=== PATIENT | female | born 1995 | race Caucasian/White ===

== ENCOUNTER 2016-06-27 21:20 | Emergency (ER) | payer OTHER ==
--- NOTE | 2016-06-27 21:58 | ED.PDOC ---
History of Present Illness - General Chief Complaint: ENT Problem Stated Complaint: EAR ACHE FROM TOOTH PAIN Time Seen by Provider: 06/27/16 21:56 Source: patient Exam Limitations: no limitations - History of Present Illness Initial Comments: Rani Bustamante 21 y/o female stated that left lower jaw had been hurting for 3 days feels like her ears left but lower jaw hurts on chewing.Tried to make dental appointment but accepting only insurance. Timing/Duration: gradual, other - 3 days ago Severity: moderate EENT Location: dental Prearrival Treatment: no prearrival treatment Improving Factors: nothing Worsening Factors: eating Associated Symptoms: tooth pain Allergies/Adverse Reactions: Allergies Amoxicillin Allergy (Intermediate, Verified 06/27/16 21:33) Hives Ethanol [From Robitussin] Allergy (Verified 06/27/16 21:33) Guaifenesin [From Robitussin] Allergy (Verified 06/27/16 21:33) Home Medications: Ambulatory Orders Acetamin W/Cod #3 Tab [Tylenol w/CODEINE #3] 1 ea PO TID PRN #10 tab 06/27/16 Clindamycin HCl [Cleocin] 300 mg PO Q12HR #30 cap 06/27/16 Vit W/ Ferrous Fumara [] 1 tab PO DAILY 06/27/16 Review of Systems - Review of Systems Constitutional: States: no symptoms reported EENTM: States: see HPI Respiratory: States: no symptoms reported Cardiology: States: no symptoms reported Gastrointestinal/Abdominal: States: no symptoms reported Genitourinary: States: no symptoms reported Musculoskeletal: States: no symptoms reported Skin: States: no symptoms reported Neurological: States: no symptoms reported Endocrine: States: no symptoms reported Hematologic/Lymphatic: States: no symptoms reported Past Medical History (General) - Patient Medical History Hx Seizures: No Hx Stroke: No Hx Dementia: No Hx Asthma: Yes Hx of COPD: No Hx Cardiac Disorders: No Hx Congestive Heart Failure: No Hx Pacemaker: No Hx Hypertension: No Hx Thyroid Disease: No Hx Diabetes: No Hx Gastroesophageal Reflux: No Hx Renal Disease: No Hx Cancer: No Hx of HIV: No Hx Hepatitis C: No Hx MRSA: No Surgical History: appendectomy - Vaccination History Hx Tetanus, Diphtheria Vaccination: No Hx Influenza Vaccination: No Hx Pneumococcal Vaccination: No Immunizations Up to Date: No - Social History Hx Tobacco Use: Yes Hx Chewing Tobacco Use: No Hx Alcohol Use: No Hx Substance Use: No Hx Substance Use Treatment: No Hx Depression: No Hx Physical Abuse: No Hx Emotional Abuse: No Hx Suspected Abuse: No - Female History Hx Last Menstrual Period: 08/14/14 Patient : No Family Medical History - Family History Mother Family History: No Known Living Status: Still Living Hx Family Hypertension: Yes Physical Exam - Physical Exam General Appearance: Agitated, No apparent distress Eye Exam: bilateral normal Ear Exam: bilateral ear: auricle normal, canal normal, TM normal Nasal Exam: normal inspection Throat Exam: normal mouth inspection, pharynx normal, dental tenderness - lower molar left with tenderness gum line Neck: non-tender, full range of motion, supple Cardiovascular/Respiratory: regular rate, rhythm, no M/R/G, normal peripheral pulses, no JVD Abdominal Exam: non-tender, no organomegaly Neurologic: alert, oriented x 3 Skin Exam: normal color, warm/dry Departure - Departure Clinical Impression: Caries of left mastoid, Pain due to dental caries Time of Disposition: 22:16 Disposition: Discharge to Home or Self Care Condition: Good Departure Forms: ED Discharge - Pt. Copy, Patient Portal Self Enrollment Instructions: DI for Tooth Decay Referrals: Emigdio Gongora MD [Primary Care Provider] - 1-2 Weeks Prescriptions: Clindamycin HCl [Cleocin] 300 mg PO Q12HR #30 cap Acetamin W/Cod #3 Tab [Tylenol w/CODEINE #3] 1 ea PO TID PRN #10 tab PRN Reason: Pain Home Medications: Ambulatory Orders Acetamin W/Cod #3 Tab [Tylenol w/CODEINE #3] 1 ea PO TID PRN #10 tab 06/27/16 Clindamycin HCl [Cleocin] 300 mg PO Q12HR #30 cap 06/27/16 Vit W/ Ferrous Fumara [] 1 tab PO DAILY 06/27/16 Additional Instructions: Call up [facility] [address] [address] phone [phone] for appointment
[2016-06-27] MEDS ORDERED: HYDROcodone 7.5MG/APAP 325MG 1 EA TAB PO ONE (22:14)
[2016-06-27] MEDS ORDERED: CLINDAMYCIN HCL CAP 150 MG CAP PO ONE (22:14)
[2016-06-27 22:35] VITALS: BP 150/83; TEMP 97.9; O2SAT 100
== END 2016-06-27 22:34 | disposition home or self-care (01) ==
LOC: ER 21:20
DX: K02.9 Dental caries, unspecified (principal); Z88.3 Allergy status to other anti-infective agents; Z88.8 Allergy status to other drugs, medicaments and biological substances

== ENCOUNTER 2016-07-15 18:26 | Emergency (ER) | payer OTHER ==
[2016-07-15 19:13] VITALS: O2SAT 98
[2016-07-15] MEDS ORDERED: ACETAMINOPHEN W/COD #3 TAB 1 EA TAB PO ONE (19:22)
--- NOTE | 2016-07-15 19:26 | ED.PDOC ---
History of Present Illness - General Chief Complaint: Dental/Mouth Stated Complaint: dental discomfort Time Seen by Provider: 07/15/16 18:47 Source: patient, RN notes reviewed, Vital Signs reviewed, family - Mother - History of Present Illness Initial Comments: Patient is a 21 y/o female who is . She has had tooth pain for 2 weeks. She has been seen in the ED and saw Dr. Gongora yesterday and was put on Clindamycin, however she was not given any pain medication. She woke up last night with severe pain and has been unable to sleep since. She has an appointment with the dentist in 2 days. She denies any fever/chills. Timing/Duration: getting worse, other - 2 weeks Severity: severe Improving Factors: nothing Worsening Factors: eating Associated Symptoms: denies symptoms Allergies/Adverse Reactions: Allergies Amoxicillin Allergy (Intermediate, Verified 07/15/16 19:12) Hives Ethanol [From Robitussin] Allergy (Verified 07/15/16 19:12) Guaifenesin [From Robitussin] Allergy (Verified 07/15/16 19:12) Home Medications: Ambulatory Orders Vit W/ Ferrous Fumara [] 1 tab PO DAILY 06/27/16 Clindamycin HCl [Cleocin] 300 mg PO TID 07/15/16 Review of Systems - Review of Systems Constitutional: States: no symptoms reported EENTM: States: mouth pain Respiratory: States: no symptoms reported Cardiology: States: no symptoms reported Gastrointestinal/Abdominal: States: no symptoms reported Genitourinary: States: no symptoms reported Musculoskeletal: States: no symptoms reported Skin: States: no symptoms reported Neurological: States: no symptoms reported Endocrine: States: no symptoms reported Hematologic/Lymphatic: States: no symptoms reported All other Systems: Reviewed and Negative Past Medical History (General) - Patient Medical History Hx Seizures: No Hx Stroke: No Hx Dementia: No Hx Asthma: Yes Hx of COPD: No Hx Cardiac Disorders: No Hx Congestive Heart Failure: No Hx Pacemaker: No Hx Hypertension: No Hx Thyroid Disease: No Hx Diabetes: No Hx Gastroesophageal Reflux: No Hx Renal Disease: No Hx Cancer: No Hx of HIV: No Hx Hepatitis C: No Hx MRSA: No Surgical History: appendectomy - Vaccination History Hx Tetanus, Diphtheria Vaccination: No Hx Influenza Vaccination: No Hx Pneumococcal Vaccination: No - Social History Hx Tobacco Use: Yes Hx Chewing Tobacco Use: No Hx Alcohol Use: No Hx Substance Use: No Hx Substance Use Treatment: No Hx Depression: No Hx Physical Abuse: No Hx Emotional Abuse: No Hx Suspected Abuse: No - Female History Patient is a Female of Child Bearing Age (10 -59 yrs old): Yes Hx Last Menstrual Period: 08/14/14 Patient : Yes - 19 weeks Family Medical History - Family History Mother Family History: No Known Living Status: Still Living Hx Family Hypertension: Yes Physical Exam - Physical Exam General Appearance: Agitated, Alert, Obvious distress - Mild distress Ears, Nose, Throat: hearing grossly normal, normal ENT inspection, other - Gingivitis upper left gums, increased at canine and molars. Significant dental caries. Canine tooth is broken down to pulp. Neck: full range of motion, supple Respiratory: no respiratory distress Extremity: normal range of motion Neurologic: alert, normal mood/affect, oriented x 3 Skin Exam: normal color, warm/dry Departure - Departure Clinical Impression: Pulpitis, Dental caries, Pain due to dental caries, Gingivitis Time of Disposition: 19:30 Disposition: Discharge to Home or Self Care Condition: Excellent Departure Forms: ED Discharge - Pt. Copy, Patient Portal Self Enrollment Instructions: DI for Tooth Abscess, DI for Tooth Decay Diet: resume usual diet Referrals: Emigdio Gongora MD [Primary Care Provider] - 1-5 Days Home Medications: Ambulatory Orders Vit W/ Ferrous Fumara [] 1 tab PO DAILY 06/27/16 Clindamycin HCl [Cleocin] 300 mg PO TID 07/15/16 Additional Instructions: Keep dental appointment in 2 days. Follow up with Dr. Gongora for any further need for pain control. Follow up in ED for any fever or severe pain.
[2016-07-15] MEDS ORDERED: ACETAMINOPHEN W/COD #3 TAB (ER Disp) PO ONE (19:29)
[2016-07-15 19:43] VITALS: BP 132/86; TEMP 98.6
== END 2016-07-15 19:43 | disposition home or self-care (01) ==
LOC: ER 18:26
DX: O99.612 Diseases of the digestive system complicating pregnancy, second trimester (principal); K04.01 Reversible pulpitis; K02.9 Dental caries, unspecified; O99.512 Diseases of the respiratory system complicating pregnancy, second trimester; J45.909 Unspecified asthma, uncomplicated; Z3A.19 19 weeks gestation of pregnancy; Z87.891 Personal history of nicotine dependence; Z88.3 Allergy status to other anti-infective agents; Z88.8 Allergy status to other drugs, medicaments and biological substances

== ENCOUNTER 2016-07-18 13:18 | Emergency (ER) | payer OTHER ==
[2016-07-18 13:34] VITALS: TEMP 98.5; O2SAT 98
--- NOTE | 2016-07-18 13:45 | ED.PDOC ---
History of Present Illness - General Chief Complaint: Dental/Mouth Stated Complaint: Dental pain Time Seen by Provider: 07/18/16 13:20 Source: patient, RN notes reviewed, Vital Signs reviewed Exam Limitations: no limitations - History of Present Illness Initial Comments: Patient presents to the ER again with Dental pain. She was seen her on 07/15/16 for same. She is on Clindamycin for a dental abscess. Reports the pain is worse. She did not see the dentist yesterday as scheduled. Reports they would not see her but she is unsure why. She has severe caries. She is also . Timing/Duration: 1 week, constant Severity: severe Improving Factors: nothing Worsening Factors: eating Associated Symptoms: denies symptoms Allergies/Adverse Reactions: Allergies Amoxicillin Allergy (Intermediate, Verified 07/15/16 19:12) Hives Ethanol [From Robitussin] Allergy (Verified 07/15/16 19:12) Guaifenesin [From Robitussin] Allergy (Verified 07/15/16 19:12) Home Medications: Ambulatory Orders Vit W/ Ferrous Fumara [] 1 tab PO DAILY 06/27/16 Clindamycin HCl [Cleocin] 300 mg PO TID 07/15/16 Acetaminophen W/ Codeine [Tylenol W/ CODEINE #3] 1 ea PO Q6HR PRN #15 07/18/16 Clindamycin HCl 300 mg PO TID #21 cap 07/18/16 Review of Systems - Review of Systems Constitutional: States: no symptoms reported EENTM: States: see HPI Respiratory: States: no symptoms reported Cardiology: States: no symptoms reported All other Systems: No Change from Baseline Past Medical History (General) - Patient Medical History Hx Seizures: No Hx Stroke: No Hx Dementia: No Hx Asthma: Yes Hx of COPD: No Hx Cardiac Disorders: No Hx Congestive Heart Failure: No Hx Pacemaker: No Hx Hypertension: No Hx Thyroid Disease: No Hx Diabetes: No Hx Gastroesophageal Reflux: No Hx Renal Disease: No Hx Cancer: No Hx of HIV: No Hx Hepatitis C: No Hx MRSA: No Surgical History: appendectomy - Vaccination History Hx Tetanus, Diphtheria Vaccination: No Hx Influenza Vaccination: No Hx Pneumococcal Vaccination: No - Social History Hx Tobacco Use: Yes Hx Chewing Tobacco Use: No Hx Alcohol Use: No Hx Substance Use: No Hx Substance Use Treatment: No Hx Depression: No Hx Physical Abuse: No Hx Emotional Abuse: No Hx Suspected Abuse: No - Female History Patient is a Female of Child Bearing Age (10 -59 yrs old): Yes Hx Last Menstrual Period: 08/14/14 Patient : Yes Family Medical History - Family History Mother Family History: No Known Living Status: Still Living Hx Family Hypertension: Yes Physical Exam - Physical Exam General Appearance: Anxious, Unkempt, Well Developed, Well Hydrated, Well Nourished, Other - crying Ears, Nose, Throat: hearing grossly normal, other - Severe caries, no obvious gum swelling or erythema of lower L mucosa. Neck: non-tender, full range of motion, supple Respiratory: no respiratory distress Neurologic: alert, normal mood/affect, oriented x 3 Skin Exam: normal color, warm/dry Comments: Vital Signs - 24 hr 07/18/16 13:27 Temperature 98.5 F Pulse Rate [ 90 left brachial] Respiratory 20 Rate Blood Pressure 125/84 [left brachial] O2 Sat by Pulse 98 Oximetry Progress - Progress Progress: 07/18/16 14:43 Patient is feeling much better after Tylenol #3. Will d/c home with Rx for Tyl #3 and more Clindamycin Departure - Departure Clinical Impression: Dental caries, Pain due to dental caries Time of Disposition: 14:43 Disposition: Discharge to Home or Self Care Condition: Good Departure Forms: ED Discharge - Pt. Copy, Patient Portal Self Enrollment Instructions: DI for Dental Pain Diet: resume usual diet Activity: increase activity as tolerated Referrals: Emigdio Gongora MD [Primary Care Provider] - 1-2 Weeks Prescriptions: Acetaminophen W/ Codeine [Tylenol W/ CODEINE #3] 1 ea PO Q6HR PRN #15 PRN Reason: Moderate To Severe Pain Clindamycin HCl 300 mg PO TID #21 cap Home Medications: Ambulatory Orders Vit W/ Ferrous Fumara [] 1 tab PO DAILY 06/27/16 Clindamycin HCl [Cleocin] 300 mg PO TID 07/15/16 Acetaminophen W/ Codeine [Tylenol W/ CODEINE #3] 1 ea PO Q6HR PRN #15 07/18/16 Clindamycin HCl 300 mg PO TID #21 cap 07/18/16
[2016-07-18] MEDS ORDERED: ACETAMINOPHEN W/COD #3 TAB 1 EA TAB PO ONE (14:03)
[2016-07-18 14:45] VITALS: BP 134/76
== END 2016-07-18 14:55 | disposition home or self-care (01) ==
LOC: ER 13:18
DX: O99.619 Diseases of the digestive system complicating pregnancy, unspecified trimester (principal); K02.9 Dental caries, unspecified; Z87.891 Personal history of nicotine dependence; Z88.3 Allergy status to other anti-infective agents; Z88.8 Allergy status to other drugs, medicaments and biological substances; Z79.899 Other long term (current) drug therapy; Z3A.00 Weeks of gestation of pregnancy not specified

== ENCOUNTER 2016-09-08 13:42 | Emergency (ER) | payer SELFPAY ==
[2016-09-08 14:07] VITALS: BP 123/85; TEMP 97.4
[2016-09-08] MEDS ORDERED: CLINDAMYCIN HCL CAP 150 MG CAP PO ONE (14:19)
--- NOTE | 2016-09-08 14:22 | ED.PDOC ---
History of Present Illness - General Chief Complaint: Bite: Animal/Insect/Human Stated Complaint: insect bite Time Seen by Provider: 09/08/16 14:19 Source: patient Exam Limitations: no limitations - History of Present Illness Initial Comments: The patient is a 21-year-old female at 27 weeks gestational age presenting secondary to mild erythema and a very small in amount of drainage from the superior aspect of the umbilicus. This has been present for the last 24 hours. No fevers. Child is moving well. No evidence of labor. Additionally the patient has several circular rash areas present over her body for the last 1 -2 weeks. One is on the innerleft thigh. One is on the left posterior lower back. One is on the right posterior upper arm. All clinically could be consistent with a ringworm but could also be consistent with early nummular eczemaor psoriasis. No evidence of abscess formation. No peritoneal signs. No evidence of sepsis. Timing/Duration: 24 hours Severity: mild Improving Factors: nothing Worsening Factors: nothing Associated Symptoms: denies symptoms Allergies/Adverse Reactions: Allergies Amoxicillin Allergy (Intermediate, Verified 07/15/16 19:12) Hives Ethanol [From Robitussin] Allergy (Verified 07/15/16 19:12) Guaifenesin [From Robitussin] Allergy (Verified 07/15/16 19:12) Home Medications: Ambulatory Orders Vit W/ Ferrous Fumara [] 1 tab PO DAILY 06/27/16 Clindamycin HCl [Cleocin] 300 mg PO TID 07/15/16 Acetaminophen W/ Codeine [Tylenol W/ CODEINE #3] 1 ea PO Q6HR PRN #15 07/18/16 Clindamycin HCl 300 mg PO TID #21 cap 07/18/16 Clindamycin HCl 300 mg PO Q8H #21 cap 09/08/16 Review of Systems - Review of Systems Constitutional: States: no symptoms reported EENTM: States: no symptoms reported Respiratory: States: no symptoms reported Cardiology: States: no symptoms reported Gastrointestinal/Abdominal: States: see HPI Genitourinary: States: no symptoms reported Musculoskeletal: States: no symptoms reported Skin: States: see HPI Neurological: States: no symptoms reported Endocrine: States: no symptoms reported All other Systems: No Change from Baseline Past Medical History (General) - Patient Medical History Hx Seizures: No Hx Stroke: No Hx Dementia: No Hx Asthma: Yes Hx of COPD: No Hx Cardiac Disorders: No Hx Congestive Heart Failure: No Hx Pacemaker: No Hx Hypertension: No Hx Thyroid Disease: No Hx Diabetes: No Hx Gastroesophageal Reflux: No Hx Renal Disease: No Hx Cancer: No Hx of HIV: No Hx Hepatitis C: No Hx MRSA: No Surgical History: appendectomy - Vaccination History Hx Tetanus, Diphtheria Vaccination: No Hx Influenza Vaccination: No Hx Pneumococcal Vaccination: No - Social History Hx Tobacco Use: Yes Hx Chewing Tobacco Use: No Hx Alcohol Use: No Hx Substance Use: No Hx Substance Use Treatment: No Hx Depression: No Hx Physical Abuse: No Hx Emotional Abuse: No Hx Suspected Abuse: No - Female History Hx Last Menstrual Period: 02/14/16 Patient : Yes Family Medical History - Family History Mother Family History: No Known Living Status: Still Living Hx Family Hypertension: Yes Physical Exam - Physical Exam General Appearance: Alert, Comfortable, No apparent distress Eye Exam: bilateral normal Ears, Nose, Throat: hearing grossly normal, normal ENT inspection, normal pharynx Neck: non-tender, full range of motion, supple Respiratory: lungs clear, normal breath sounds, no respiratory distress Cardiovascular/Chest: normal peripheral pulses, regular rate, rhythm, no edema Peripheral Pulses: radial,right: 2+, radial,left: 2+, dorsalis pedis,right: 2+, dorsalis pedis,left: 2+ Gastrointestinal/Abdominal: non tender, soft, other - gravid Rectal Exam: deferred Back Exam: normal inspection, no CVA tenderness Extremity: normal range of motion, non-tender, normal inspection, no pedal edema , normal capillary refill 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 These areas could be consistent with eczema, psoriasis or ringworms. For now i am going to have the patient use topical Lotrimin on these lesions 4 times daily and cover them with a Band-Aid. if the areas fail to improve with this treatment, then a trial of topical hydrocortisone may be warranted. for the periumbilical cellulitis, the patient is to use Neosporin ointment on the end of a Q-tip 3 times daily to coat the area. She needs to wash the area twice daily with an antibacterial soap. If the area worsens rather than improves, then she may need reevaluation. No evidence of abscess formation at this time. The patient will be on clindamycin for the next 7 days. ER warnings were given. Follow-up with obstetrics otherwise. Departure - Departure Clinical Impression: Cellulitis of umbilicus Disposition: Discharge to Home or Self Care Condition: Fair Departure Forms: ED Discharge - Pt. Copy, Patient Portal Self Enrollment Instructions: DI for Cellulitis -- Adult Diet: regular diet Activity: increase activity as tolerated Referrals: Emigdio Gongora MD [Primary Care Provider] - 1-2 Weeks Prescriptions: Clindamycin HCl 300 mg PO Q8H #21 cap Home Medications: Ambulatory Orders Vit W/ Ferrous Fumara [] 1 tab PO DAILY 06/27/16 Clindamycin HCl [Cleocin] 300 mg PO TID 07/15/16 Acetaminophen W/ Codeine [Tylenol W/ CODEINE #3] 1 ea PO Q6HR PRN #15 07/18/16 Clindamycin HCl 300 mg PO TID #21 cap 07/18/16 Clindamycin HCl 300 mg PO Q8H #21 cap 09/08/16 Additional Instructions: the patient is a 21-year-old female presenting with what appears to be a micki-umbilical cellulitis along with several areas of rash that are circular in nature. These areas could be consistent with eczema, psoriasis or ringworms. For now i am going to have the patient use topical Lotrimin on these lesions 4 times daily and cover them with a Band-Aid. if the areas fail to improve with this treatment, then a trial of topical hydrocortisone may be warranted. for the periumbilical cellulitis, the patient is to use Neosporin ointment on the end of a Q-tip 3 times daily to coat the area. She needs to wash the area twice daily with an antibacterial soap. If the area worsens rather than improves, then she may need reevaluation. No evidence of abscess formation at this time. The patient will be on clindamycin for the next 7 days. ER warnings were given. Follow-up with obstetrics otherwise.
[2016-09-08 15:18] VITALS: O2SAT 97
== END 2016-09-08 14:55 | disposition home or self-care (01) ==
LOC: ER 13:42
DX: O99.89 Other specified diseases and conditions complicating pregnancy, childbirth and the puerperium (principal); L03.316 Cellulitis of umbilicus; R21 Rash and other nonspecific skin eruption; O99.512 Diseases of the respiratory system complicating pregnancy, second trimester; J45.909 Unspecified asthma, uncomplicated; Z3A.27 27 weeks gestation of pregnancy; Z87.891 Personal history of nicotine dependence; Z88.1 Allergy status to other antibiotic agents; Z88.8 Allergy status to other drugs, medicaments and biological substances

== ENCOUNTER 2016-11-28 20:13 | Emergency (ER) | payer OTHER ==
[2016-11-28] MEDS ORDERED: CLINDAMYCIN HCL CAP 150 MG CAP PO ONE (20:27)
--- NOTE | 2016-11-28 20:30 | ED.PDOC ---
History of Present Illness - General Chief Complaint: General Stated Complaint: left breast sore and has knot Time Seen by Provider: 11/28/16 20:17 Source: patient Exam Limitations: no limitations - History of Present Illness Initial Comments: The patient is a 21-year-old female presenting to the emergency room secondary to left-sided breast pain. The patient delivered 5 days ago and has been breast-feeding and pumping. She is having some pain at the11 o'clock position in her breast where she obviously has a backup duct. No obvious erythema of the skin. No fevers. Pain is only been present today. Timing/Duration: unsure Severity: mild Improving Factors: nothing Worsening Factors: nothing Associated Symptoms: denies symptoms Allergies/Adverse Reactions: Allergies Amoxicillin Allergy (Intermediate, Verified 07/15/16 19:12) Hives Ethanol [From Robitussin] Allergy (Verified 07/15/16 19:12) Guaifenesin [From Robitussin] Allergy (Verified 07/15/16 19:12) Home Medications: Ambulatory Orders Vit W/ Ferrous Fumara [] 1 tab PO DAILY 06/27/16 Clindamycin HCl [Cleocin] 300 mg PO TID 07/15/16 Acetaminophen W/ Codeine [Tylenol W/ CODEINE #3] 1 ea PO Q6HR PRN #15 07/18/16 Clindamycin HCl 300 mg PO TID #21 cap 07/18/16 Clindamycin HCl 300 mg PO Q8H #21 cap 09/08/16 Rdrzrdzlpyyoy-Fylo-Rhcoxhoesd [Fioricet] 1 ea PO Q8H PRN #21 tab 11/28/16 Clindamycin HCl 300 mg PO Q8H #14 cap 11/28/16 Review of Systems - Review of Systems Constitutional: States: no symptoms reported EENTM: States: no symptoms reported Respiratory: States: no symptoms reported Cardiology: States: no symptoms reported Gastrointestinal/Abdominal: States: no symptoms reported Genitourinary: States: no symptoms reported Musculoskeletal: States: no symptoms reported Skin: States: no symptoms reported Neurological: States: no symptoms reported All other Systems: No Change from Baseline Past Medical History (General) - Patient Medical History Hx Seizures: No Hx Stroke: No Hx Dementia: No Hx Asthma: Yes Hx of COPD: No Hx Cardiac Disorders: No Hx Congestive Heart Failure: No Hx Pacemaker: No Hx Hypertension: No Hx Thyroid Disease: No Hx Diabetes: No Hx Gastroesophageal Reflux: No Hx Renal Disease: No Hx Cancer: No Hx of HIV: No Hx Hepatitis C: No Hx MRSA: No - Vaccination History Hx Tetanus, Diphtheria Vaccination: No Hx Influenza Vaccination: No Hx Pneumococcal Vaccination: No - Social History Hx Tobacco Use: Yes Hx Chewing Tobacco Use: No Hx Alcohol Use: No Hx Substance Use: No Hx Substance Use Treatment: No Hx Depression: No Hx Physical Abuse: No Hx Emotional Abuse: No Hx Suspected Abuse: No - Female History Hx Last Menstrual Period: 02/14/16 Patient : Yes Expected Date of Delivery:: 12/27/16 Family Medical History - Family History Mother Family History: No Known Living Status: Still Living Hx Family Hypertension: Yes Physical Exam - Physical Exam General Appearance: Alert, Comfortable, No apparent distress Eye Exam: bilateral normal Ears, Nose, Throat: normal ENT inspection Neck: full range of motion Respiratory: no respiratory distress, no accessory muscle use, other - left breast as per history of present illness. 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 The patient needs to increase her fluid intake to help reduce clogging of the ducts. She also needs to start a fish oil supplement to help reduce clogging of the ducts. She needs to apply lanolin topically after she finishes breast-feeding and pumping each time. Additionally a heat pad and warm rag can be used prior to breast-feeding and pumping to help with secretion of the milk glands. The patient will be placed on 5 days of oral clindamycin with the first dose given now. Fioricet can additionally be used for pain. ER warnings were given. Departure - Departure Clinical Impression: Mastitis without abscess Disposition: Discharge to Home or Self Care Condition: Fair Departure Forms: ED Discharge - Pt. Copy, Patient Portal Self Enrollment Diet: regular diet Activity: increase activity as tolerated Referrals: Rolan,Emigdio E, MD [Primary Care Provider] - 1-2 Weeks Prescriptions: Ixkvwqyjytzap-Viwa-Eefiqsbhtw [Fioricet] 1 ea PO Q8H PRN #21 tab PRN Reason: Pain Clindamycin HCl 300 mg PO Q8H #14 cap Home Medications: Ambulatory Orders Vit W/ Ferrous Fumara [] 1 tab PO DAILY 06/27/16 Clindamycin HCl [Cleocin] 300 mg PO TID 07/15/16 Acetaminophen W/ Codeine [Tylenol W/ CODEINE #3] 1 ea PO Q6HR PRN #15 07/18/16 Clindamycin HCl 300 mg PO TID #21 cap 07/18/16 Clindamycin HCl 300 mg PO Q8H #21 cap 09/08/16 Sstuybqhfvxbo-Dmbu-Fpdvluahmu [Fioricet] 1 ea PO Q8H PRN #21 tab 11/28/16 Clindamycin HCl 300 mg PO Q8H #14 cap 11/28/16 Additional Instructions: the patient's 21-year-old female that is lactating that appears to have a mild mastitis on the left side. The patient needs to increase her fluid intake to help reduce clogging of the ducts. She also needs to start a fish oil supplement to help reduce clogging of the ducts. She needs to apply lanolin topically after she finishes breast-feeding and pumping each time. Additionally a heat pad and warm rag can be used prior to breast-feeding and pumping to help with secretion of the milk glands. The patient will be placed on 5 days of oral clindamycin with the first dose given now. Fioricet can additionally be used for pain. ER warnings were given.
[2016-11-28 20:36] VITALS: BP 135/86; TEMP 98; O2SAT 95
== END 2016-11-28 20:47 | disposition home or self-care (01) ==
LOC: ER 20:13
DX: N61.0 Mastitis without abscess (principal); Z87.891 Personal history of nicotine dependence; Z88.8 Allergy status to other drugs, medicaments and biological substances; Z88.3 Allergy status to other anti-infective agents

== ENCOUNTER 2017-01-06 18:56 | Emergency (ER) | payer OTHER ==
[2017-01-06 19:13] VITALS: TEMP 98.2; O2SAT 98
[2017-01-06] MEDS ORDERED: NEOMYCIN-BACITRACIN-POLYMYXIN 0.9 GM UD TOP ONE (19:18)
[2017-01-06] MEDS ORDERED: CLINDAMYCIN PHOSPHATE 150 MG/ML VIAL IM ONE (19:18)
[2017-01-06] MEDS ORDERED: ACETAMINOPHEN W/COD #3 TAB 1 EA TAB PO ONE (19:18)
--- NOTE | 2017-01-06 19:21 | ED.PDOC ---
History of Present Illness - General Chief Complaint: Skin/Abrasion/Tear Stated Complaint: sore tatoo on left hand Time Seen by Provider: 01/06/17 19:17 Source: patient, RN notes reviewed, Vital Signs reviewed Exam Limitations: no limitations - History of Present Illness Initial Comments: Patient comes in with an infected tattoo on her left hand. Got a tattoo 3 days ago. No is red, painful and swollen. Timing/Duration: getting worse - over past 3 days Severity: moderate Location: hands - Dorsum L hand Improving Factors: nothing Worsening Factors: nothing Associated Symptoms: denies symptoms Allergies/Adverse Reactions: Allergies Amoxicillin Allergy (Intermediate, Verified 01/06/17 19:13) Hives Ethanol [From Robitussin] Allergy (Verified 01/06/17 19:13) Guaifenesin [From Robitussin] Allergy (Verified 01/06/17 19:13) Home Medications: Ambulatory Orders Acetamin W/Cod #3 Tab [Tylenol w/CODEINE #3] 1 ea PO Q6HR PRN #15 tab 01/06/17 Sulfa/Trimeth 800/160 (Ds) Tab [Bactrim DS Tab] 1 ea PO BID #14 tab 01/06/17 Zoloft 01/06/17 Review of Systems - Review of Systems Constitutional: States: no symptoms reported Respiratory: States: no symptoms reported Cardiology: States: no symptoms reported Musculoskeletal: States: no symptoms reported Skin: States: see HPI Neurological: States: no symptoms reported All other Systems: No Change from Baseline Past Medical History (General) - Patient Medical History Hx Seizures: No Hx Stroke: No Hx Dementia: No Hx Asthma: Yes Hx of COPD: No Hx Cardiac Disorders: No Hx Congestive Heart Failure: No Hx Pacemaker: No Hx Hypertension: No Hx Thyroid Disease: No Hx Diabetes: No Hx Gastroesophageal Reflux: No Hx Renal Disease: No Hx Cancer: No Hx of HIV: No Hx Hepatitis C: No Hx MRSA: No Surgical History: appendectomy - Vaccination History Hx Tetanus, Diphtheria Vaccination: No Hx Influenza Vaccination: Yes Hx Pneumococcal Vaccination: No - Social History Hx Tobacco Use: Yes Hx Chewing Tobacco Use: No Hx Alcohol Use: No Hx Substance Use: No Hx Substance Use Treatment: No Hx Depression: No Hx Physical Abuse: No Hx Emotional Abuse: No Hx Suspected Abuse: No - Female History Patient is a Female of Child Bearing Age (10 -59 yrs old): Yes Hx Last Menstrual Period: 02/14/16 Patient : No Expected Date of Delivery:: 12/27/16 Family Medical History - Family History Mother Family History: No Known Living Status: Still Living Hx Family Hypertension: Yes Physical Exam - Physical Exam General Appearance: Alert, Comfortable, No apparent distress, Well Developed, Well Groomed, Well Hydrated, Well Nourished Respiratory: no respiratory distress Extremity: normal range of motion, normal inspection Neurologic: alert, normal mood/affect, oriented x 3 Skin Exam: warm/dry, normal color Skin Problem Location: upper extremities - Dorsum of left hand between thumb and index finger Skin Character: warm - erythematous, swollen and tender Lymphatic: no adenopathy Comments: Vital Signs 01/06/17 19:10 Temperature 98.2 F Pulse Rate [ 83 Right] Respiratory 18 Rate Blood Pressure 119/80 [left] O2 Sat by Pulse 98 Oximetry Departure - Departure Clinical Impression: Cellulitis of hand excluding fingers, Tattoo of skin Time of Disposition: 19:22 Disposition: Discharge to Home or Self Care Condition: Good Departure Forms: ED Discharge - Pt. Copy, Patient Portal Self Enrollment Instructions: DI for Cellulitis -- Adult Diet: resume usual diet Activity: increase activity as tolerated Referrals: Emigdio Gongora MD [Primary Care Provider] - 1-2 Weeks Prescriptions: Acetamin W/Cod #3 Tab [Tylenol w/CODEINE #3] 1 ea PO Q6HR PRN #15 tab PRN Reason: Moderate To Severe Pain Sulfa/Trimeth 800/160 (Ds) Tab [Bactrim DS Tab] 1 ea PO BID #14 tab Home Medications: Ambulatory Orders Acetamin W/Cod #3 Tab [Tylenol w/CODEINE #3] 1 ea PO Q6HR PRN #15 tab 01/06/17 Sulfa/Trimeth 800/160 (Ds) Tab [Bactrim DS Tab] 1 ea PO BID #14 tab 01/06/17 Zoloft 01/06/17 Additional Instructions: Apply antibiotic ointment to area twice daily
[2017-01-06 20:04] VITALS: BP 118/75
== END 2017-01-06 20:04 | disposition home or self-care (01) ==
LOC: ER 18:56
DX: L03.114 Cellulitis of left upper limb (principal); Z88.8 Allergy status to other drugs, medicaments and biological substances; Z87.891 Personal history of nicotine dependence

== ENCOUNTER 2017-06-04 15:32 | Emergency (ER) | payer OTHER ==
[2017-06-04 15:56] VITALS: TEMP 98.5; O2SAT 97
--- NOTE | 2017-06-04 16:30 | ED.PDOC ---
History of Present Illness - General Chief Complaint: Respiratory Problem Stated Complaint: cough x1 week Time Seen by Provider: 06/04/17 15:59 Source: patient - History of Present Illness Comments: PT REPORTS RECENT COUGH, SORE THROAT AND SUBJECTIVE FEVER FOR THE PAST WEEK. PT REPORTS EXPOSURE TO A RELATIVE WHO HAD PNEUMONIA. Timing/Duration: week Cough Quality/Degree: dry cough Possible Cause: illness exposure Improving Factors: medication - ALBUTEROL Worsening Factors: nothing Associated Symptoms: cough, fever/chills, shortness of breath, sore throat, wheezing Respiratory Risk Factors: exposure to illness Allergies/Adverse Reactions: Allergies Amoxicillin Allergy (Intermediate, Verified 01/06/17 19:13) Hives Ethanol [From Robitussin] Allergy (Verified 01/06/17 19:13) Guaifenesin [From Robitussin] Allergy (Verified 01/06/17 19:13) Home Medications: Ambulatory Orders Acetamin W/Cod #3 Tab [Tylenol w/CODEINE #3] 1 ea PO Q6HR PRN #15 tab 01/06/17 Sulfa/Trimeth 800/160 (Ds) Tab [Bactrim DS Tab] 1 ea PO BID #14 tab 01/06/17 Zoloft 01/06/17 Albuterol Inhaler [Ventolin Hfa Inhaler] 2 puff INH Q4HR PRN #1 inh 06/04/17 Benzonatate Perles [Tessalon Perles] 200 mg PO TID PRN #30 cap 06/04/17 Ibuprofen 800 mg PO Q8HR PRN #30 tab 06/04/17 Prednisone 50 mg PO DAILY 5 Days #5 tab 06/04/17 Spacer/Aerosol-Holding Chamber [Aerochamber Plus] 1 mis INH DAILY #1 each Review of Systems - Review of Systems Constitutional: States: chills, fever EENTM: States: nose congestion, throat pain Respiratory: States: cough, short of breath Cardiology: Denies: chest pain, palpitations Gastrointestinal/Abdominal: Denies: diarrhea, nausea Genitourinary: Denies: dysuria, frequency Past Medical History (General) - Patient Medical History Hx Seizures: No Hx Stroke: No Hx Dementia: No Hx Asthma: Yes Hx of COPD: No Hx Cardiac Disorders: No Hx Congestive Heart Failure: No Hx Pacemaker: No Hx Hypertension: No Hx Thyroid Disease: No Hx Diabetes: No Hx Gastroesophageal Reflux: No Hx Renal Disease: No Hx Cancer: No Hx of HIV: No Hx Hepatitis C: No Hx MRSA: No Surgical History: appendectomy - Vaccination History Hx Tetanus, Diphtheria Vaccination: No Hx Influenza Vaccination: Yes Hx Pneumococcal Vaccination: No - Social History Hx Tobacco Use: Yes Hx Chewing Tobacco Use: No Hx Alcohol Use: No Hx Substance Use: No Hx Substance Use Treatment: No Hx Depression: No Hx Physical Abuse: No Hx Emotional Abuse: No Hx Suspected Abuse: No - Female History Hx Last Menstrual Period: 02/14/16 Patient : No Expected Date of Delivery:: 12/27/16 Family Medical History - Family History Mother Family History: No Known Living Status: Still Living Hx Family Hypertension: Yes Physical Exam - Physical Exam General Appearance: Alert, Comfortable, No apparent distress Eye Exam: bilateral normal ENT Exam: pharyngeal erythema Neck: full range of motion, supple Respiratory: lungs clear, normal breath sounds, no respiratory distress Cardiovascular/Chest: regular rate, rhythm, no murmur Gastrointestinal/Abdominal: non tender, soft Extremity: normal inspection, no pedal edema Neurologic: no motor/sensory deficits, alert, normal mood/affect, oriented x 3 Skin Exam: normal color, warm/dry Departure - Departure Clinical Impression: Pharyngitis, Acute bronchitis Time of Disposition: 17:14 Disposition: Discharge to Home or Self Care Condition: Good Departure Forms: ED Discharge - Pt. Copy, Patient Portal Self Enrollment Instructions: DI for Acute Bronchitis, DI for Viral Pharyngitis Diet: resume usual diet Referrals: Emigdio Gongora MD [Primary Care Provider] - 1-5 Days Prescriptions: Albuterol Inhaler [Ventolin Hfa Inhaler] 2 puff INH Q4HR PRN #1 inh PRN Reason: Shortness Of Breath/Wheezing Ibuprofen 800 mg PO Q8HR PRN #30 tab PRN Reason: Pain Benzonatate Perles [Tessalon Perles] 200 mg PO TID PRN #30 cap PRN Reason: Cough Prednisone 50 mg PO DAILY 5 Days #5 tab Spacer/Aerosol-Holding Chamber [Aerochamber Plus] 1 mis INH DAILY #1 each Home Medications: Ambulatory Orders Acetamin W/Cod #3 Tab [Tylenol w/CODEINE #3] 1 ea PO Q6HR PRN #15 tab 01/06/17 Sulfa/Trimeth 800/160 (Ds) Tab [Bactrim DS Tab] 1 ea PO BID #14 tab 01/06/17 Zoloft 01/06/17 Albuterol Inhaler [Ventolin Hfa Inhaler] 2 puff INH Q4HR PRN #1 inh 06/04/17 Benzonatate Perles [Tessalon Perles] 200 mg PO TID PRN #30 cap 06/04/17 Ibuprofen 800 mg PO Q8HR PRN #30 tab 06/04/17 Prednisone 50 mg PO DAILY 5 Days #5 tab 06/04/17 Spacer/Aerosol-Holding Chamber [Aerochamber Plus] 1 mis INH DAILY #1 each
--- NOTE | 2017-06-04 16:59 | RAD ---
EXAM DESCRIPTION: Chest,2 Views CLINICAL HISTORY: 21 years Female, COUGH/FEVER COMPARISON: None Available TECHNIQUE: PA/lateral FINDINGS: There is no cardiac or pulmonary abnormality. The lungs are clear. There is no effusion. IMPRESSION: 1. Normal two-view chest. Electronically signed by: Rober Grajeda MD 06/04/2017 4:57 PM CDT
[2017-06-04 17:32] VITALS: BP 146/82
== END 2017-06-04 17:32 | disposition home or self-care (01) ==
LOC: ER 15:32
DX: J20.9 Acute bronchitis, unspecified (principal); J02.9 Acute pharyngitis, unspecified

== ENCOUNTER 2017-06-21 20:08 | Emergency (ER) | payer OTHER ==
[2017-06-21 20:22] VITALS: BP 134/93; TEMP 98.4; O2SAT 98
[2017-06-21] MEDS ORDERED: LIDOCAINE HCL 2% (MOUTH-THROAT) 15 ML UD MT ONE (20:35)
[2017-06-21] MEDS ORDERED: HYDROCOD/APAP 7.5/325 (ER DISP) #3 TAB PO ONE (20:36)
--- NOTE | 2017-06-21 20:37 | ED.PDOC ---
History of Present Illness - General Chief Complaint: Dental/Mouth Stated Complaint: left upper toothache Time Seen by Provider: 06/21/17 20:34 Source: RN notes reviewed, Vital Signs reviewed Exam Limitations: no limitations - History of Present Illness Timing/Duration: gradual, yesterday EENT Location: dental Prearrival Treatment: no prearrival treatment Improving Factors: nothing Worsening Factors: eating Associated Symptoms: denies symptoms Allergies/Adverse Reactions: Allergies Amoxicillin Allergy (Intermediate, Verified 01/06/17 19:13) Hives Ethanol [From Robitussin] Allergy (Verified 01/06/17 19:13) Guaifenesin [From Robitussin] Allergy (Verified 01/06/17 19:13) Penicillins Allergy (Verified 06/21/17 20:22) Home Medications: Ambulatory Orders Acetamin W/Cod #3 Tab [Tylenol w/CODEINE #3] 1 ea PO Q6HR PRN #15 tab 01/06/17 Sulfa/Trimeth 800/160 (Ds) Tab [Bactrim DS Tab] 1 ea PO BID #14 tab 01/06/17 Zoloft 01/06/17 Albuterol Inhaler [Ventolin Hfa Inhaler] 2 puff INH Q4HR PRN #1 inh 06/04/17 Benzonatate Perles [Tessalon Perles] 200 mg PO TID PRN #30 cap 06/04/17 Ibuprofen 800 mg PO Q8HR PRN #30 tab 06/04/17 Prednisone 50 mg PO DAILY 5 Days #5 tab 06/04/17 Spacer/Aerosol-Holding Chamber [Aerochamber Plus] 1 mis INH DAILY #1 each Acetamin W/Cod #3 Tab [Tylenol w/CODEINE #3] 1 ea PO Q6HR PRN #40 tab 06/21/17 Clindamycin HCl 300 mg PO Q8HR #30 cap 06/21/17 Review of Systems - Review of Systems Constitutional: States: no symptoms reported EENTM: States: see HPI Respiratory: States: no symptoms reported Cardiology: States: no symptoms reported Gastrointestinal/Abdominal: States: no symptoms reported Genitourinary: States: no symptoms reported Musculoskeletal: States: no symptoms reported Skin: States: no symptoms reported Neurological: States: no symptoms reported Endocrine: States: no symptoms reported Hematologic/Lymphatic: States: no symptoms reported Past Medical History (General) - Patient Medical History Hx Seizures: No Hx Stroke: No Hx Dementia: No Hx Asthma: Yes Hx of COPD: No Hx Cardiac Disorders: No Hx Congestive Heart Failure: No Hx Pacemaker: No Hx Hypertension: No Hx Thyroid Disease: No Hx Diabetes: No Hx Gastroesophageal Reflux: No Hx Renal Disease: No Hx Cancer: No Hx of HIV: No Hx Hepatitis C: No Hx MRSA: No Surgical History: appendectomy - Vaccination History Hx Tetanus, Diphtheria Vaccination: Yes Hx Influenza Vaccination: Yes Hx Pneumococcal Vaccination: No - Social History Hx Tobacco Use: Yes Hx Chewing Tobacco Use: No Hx Alcohol Use: No Hx Substance Use: No Hx Substance Use Treatment: No Hx Depression: No Hx Physical Abuse: No Hx Emotional Abuse: No Hx Suspected Abuse: No - Female History Hx Last Menstrual Period: 02/14/16 Patient : No Expected Date of Delivery:: 12/27/16 Family Medical History - Family History Mother Family History: No Known Living Status: Still Living Hx Family Hypertension: Yes Physical Exam - Physical Exam General Appearance: Alert, Anxious Throat Exam: normal mouth inspection, pharynx normal, dental tenderness Neck: non-tender, full range of motion, supple Cardiovascular/Respiratory: regular rate, rhythm, no M/R/G, normal peripheral pulses, no JVD 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 Copy, Patient Portal Self Enrollment Referrals: Emigdio Gongora MD [Primary Care Provider] - 1-2 Weeks Prescriptions: Acetamin W/Cod #3 Tab [Tylenol w/CODEINE #3] 1 ea PO Q6HR PRN #40 tab PRN Reason: Mild To Moderate Pain Clindamycin HCl 300 mg PO Q8HR #30 cap Home Medications: Ambulatory Orders Acetamin W/Cod #3 Tab [Tylenol w/CODEINE #3] 1 ea PO Q6HR PRN #15 tab 01/06/17 Sulfa/Trimeth 800/160 (Ds) Tab [Bactrim DS Tab] 1 ea PO BID #14 tab 01/06/17 Zoloft 01/06/17 Albuterol Inhaler [Ventolin Hfa Inhaler] 2 puff INH Q4HR PRN #1 inh 06/04/17 Benzonatate Perles [Tessalon Perles] 200 mg PO TID PRN #30 cap 06/04/17 Ibuprofen 800 mg PO Q8HR PRN #30 tab 06/04/17 Prednisone 50 mg PO DAILY 5 Days #5 tab 06/04/17 Spacer/Aerosol-Holding Chamber [Aerochamber Plus] 1 mis INH DAILY #1 each Acetamin W/Cod #3 Tab [Tylenol w/CODEINE #3] 1 ea PO Q6HR PRN #40 tab 06/21/17 Clindamycin HCl 300 mg PO Q8HR #30 cap 06/21/17
[2017-06-21] MEDS ORDERED: CLINDAMYCIN HCL CAP 150 MG CAP PO ONE (21:03)
== END 2017-06-21 21:09 | disposition home or self-care (01) ==
LOC: ER 20:08
DX: K04.7 Periapical abscess without sinus (principal); Z87.891 Personal history of nicotine dependence

== ENCOUNTER 2017-09-01 11:28 | Emergency (ER) | payer OTHER ==
--- NOTE | 2017-09-01 11:56 | ED.PDOC ---
History of Present Illness - General Chief Complaint: ENT Problem Stated Complaint: sorethroat Time Seen by Provider: 09/01/17 11:52 Source: patient, family Exam Limitations: no limitations Additional Information: SORE THROAT, EAR PAIN, DENTAL PAIN, SUBJECTIVE FEVER AND MALAISE X ONE WEEK. - History of Present Illness Timing/Duration: gradual EENT Location: ear (R), ear (L), throat, dental Prearrival Treatment: no prearrival treatment Improving Factors: nothing Worsening Factors: nothing Associated Symptoms: denies symptoms Allergies/Adverse Reactions: Allergies Amoxicillin Allergy (Intermediate, Verified 09/01/17 11:57) Hives Ethanol [From Robitussin] Allergy (Verified 09/01/17 11:57) Guaifenesin [From Robitussin] Allergy (Verified 09/01/17 11:57) Penicillins Allergy (Verified 09/01/17 11:57) Home Medications: Ambulatory Orders Acetamin W/Cod #3 Tab [Tylenol w/CODEINE #3] 1 ea PO Q6HR PRN #15 tab 01/06/17 Sulfa/Trimeth 800/160 (Ds) Tab [Bactrim DS Tab] 1 ea PO BID #14 tab 01/06/17 Zoloft 01/06/17 Albuterol Inhaler [Ventolin Hfa Inhaler] 2 puff INH Q4HR PRN #1 inh 06/04/17 Benzonatate Perles [Tessalon Perles] 200 mg PO TID PRN #30 cap 06/04/17 Ibuprofen 800 mg PO Q8HR PRN #30 tab 06/04/17 Prednisone 50 mg PO DAILY 5 Days #5 tab 06/04/17 Spacer/Aerosol-Holding Chamber [Aerochamber Plus] 1 mis INH DAILY #1 each Acetamin W/Cod #3 Tab [Tylenol w/CODEINE #3] 1 ea PO Q6HR PRN #40 tab 06/21/17 Clindamycin HCl 300 mg PO Q8HR #30 cap 06/21/17 Clindamycin HCl 300 mg PO Q8HRS 10 Days cap 09/01/17 Review of Systems - Review of Systems Constitutional: States: no symptoms reported EENTM: States: ear pain, throat pain, mouth pain Respiratory: States: no symptoms reported Cardiology: States: no symptoms reported Gastrointestinal/Abdominal: States: no symptoms reported Genitourinary: States: no symptoms reported Musculoskeletal: States: no symptoms reported Skin: States: no symptoms reported Neurological: States: depressed Endocrine: States: no symptoms reported Hematologic/Lymphatic: States: no symptoms reported Past Medical History (General) - Patient Medical History Hx Seizures: No Hx Stroke: No Hx Dementia: No Hx Asthma: Yes Hx of COPD: No Hx Cardiac Disorders: No Hx Congestive Heart Failure: No Hx Pacemaker: No Hx Hypertension: No Hx Thyroid Disease: No Hx Diabetes: No Hx Gastroesophageal Reflux: No Hx Renal Disease: No Hx Cancer: No Hx of HIV: No Hx Hepatitis C: No Hx MRSA: No Surgical History: appendectomy - Vaccination History Hx Tetanus, Diphtheria Vaccination: Yes Hx Influenza Vaccination: Yes Hx Pneumococcal Vaccination: No - Social History Hx Tobacco Use: Yes Hx Chewing Tobacco Use: No Hx Alcohol Use: No Hx Substance Use: No Hx Substance Use Treatment: No Hx Depression: Yes Hx Physical Abuse: No Hx Emotional Abuse: No Hx Suspected Abuse: No - Female History Hx Last Menstrual Period: 02/14/16 Patient : No Expected Date of Delivery:: 12/27/16 Family Medical History - Family History Mother Family History: No Known Living Status: Still Living Hx Family Hypertension: Yes Physical Exam - Physical Exam General Appearance: Alert, Well Developed, Well Groomed, Well Hydrated, Well Nourished Eye Exam: bilateral normal Ear Exam: bilateral ear: TM normal Nasal Exam: normal inspection Throat Exam: pharynx normal, dental tenderness, other - MULTIPLE DENTAL CARIES Neck: non-tender, full range of motion, supple Cardiovascular/Respiratory: regular rate, rhythm, normal peripheral pulses, no JVD Abdominal Exam: non-tender, no organomegaly, no hernia Neurologic: no motor/sensory deficits, alert, normal mood/affect, oriented x 3 Skin Exam: normal color Departure - Departure Clinical Impression: Caries involving multiple surfaces of tooth Time of Disposition: 13:51 Disposition: Discharge to Home or Self Care Condition: Good Departure Forms: ED Discharge - Pt. Copy, Patient Portal Self Enrollment Instructions: DI for Ear Pain-Adult Diet: resume usual diet Referrals: Emigdio Gongora MD [Primary Care Provider] - 1-2 Weeks Prescriptions: Clindamycin HCl 300 mg PO Q8HRS 10 Days cap Home Medications: Ambulatory Orders Acetamin W/Cod #3 Tab [Tylenol w/CODEINE #3] 1 ea PO Q6HR PRN #15 tab 01/06/17 Sulfa/Trimeth 800/160 (Ds) Tab [Bactrim DS Tab] 1 ea PO BID #14 tab 01/06/17 Zoloft 01/06/17 Albuterol Inhaler [Ventolin Hfa Inhaler] 2 puff INH Q4HR PRN #1 inh 06/04/17 Benzonatate Perles [Tessalon Perles] 200 mg PO TID PRN #30 cap 06/04/17 Ibuprofen 800 mg PO Q8HR PRN #30 tab 06/04/17 Prednisone 50 mg PO DAILY 5 Days #5 tab 06/04/17 Spacer/Aerosol-Holding Chamber [Aerochamber Plus] 1 mis INH DAILY #1 each Acetamin W/Cod #3 Tab [Tylenol w/CODEINE #3] 1 ea PO Q6HR PRN #40 tab 06/21/17 Clindamycin HCl 300 mg PO Q8HR #30 cap 06/21/17 Clindamycin HCl 300 mg PO Q8HRS 10 Days cap 09/01/17
[2017-09-01 12:36] VITALS: O2SAT 99
[2017-09-01] MEDS ORDERED: IBUPROFEN 200 MG TAB PO ONE (13:27)
[2017-09-01 14:32] VITALS: BP 128/87; TEMP 97.9
== END 2017-09-01 14:15 | disposition home or self-care (01) ==
LOC: ER 11:28
DX: K02.9 Dental caries, unspecified (principal); J02.9 Acute pharyngitis, unspecified; J45.909 Unspecified asthma, uncomplicated; F32.9 Major depressive disorder, single episode, unspecified; Z88.0 Allergy status to penicillin; Z88.1 Allergy status to other antibiotic agents; Z88.8 Allergy status to other drugs, medicaments and biological substances; Z87.891 Personal history of nicotine dependence

== ENCOUNTER 2017-10-11 19:07 | Inpatient (IN) | payer SELFPAY ==
--- NOTE | 2017-10-11 19:45 | ED.PDOC ---
History of Present Illness - General Chief Complaint: Fever Stated Complaint: fever, low back pain,SOB Time Seen by Provider: 10/11/17 19:42 Source: patient, EMS notes reviewed - History of Present Illness Initial Comments: Rani Bustamante 22 y/o female stated that she had fever,nausea/vomiting 2-3 x and with dull bilateral flank pains radiating to lower abdomen the last 2 days with non productive cough but denies dysuria;diarrhea,or ill contact Timing/Duration: other - 2 days ago Severity: moderate Improving Factors: nothing Worsening Factors: nothing Associated Symptoms: other - see hpi Allergies/Adverse Reactions: Allergies Amoxicillin Allergy (Intermediate, Verified 10/11/17 19:19) Hives Ethanol [From Robitussin] Allergy (Verified 09/01/17 11:57) Guaifenesin [From Robitussin] Allergy (Verified 09/01/17 11:57) Penicillins Allergy (Verified 09/01/17 11:57) Home Medications: Ambulatory Orders Escitalopram [Lexapro] 10 mg PO DAILY 10/11/17 Levalbuterol HCl [Xopenex] 0.63 mg IN PRN 10/11/17 Review of Systems - Review of Systems Constitutional: States: fever EENTM: States: no symptoms reported Respiratory: States: see HPI Cardiology: States: no symptoms reported Gastrointestinal/Abdominal: States: see HPI Genitourinary: States: no symptoms reported Musculoskeletal: States: no symptoms reported Skin: States: no symptoms reported Neurological: States: no symptoms reported Hematologic/Lymphatic: States: no symptoms reported Past Medical History (General) - Patient Medical History Hx Seizures: No Hx Stroke: No Hx Dementia: No Hx Asthma: Yes Hx of COPD: No Hx Cardiac Disorders: No Hx Congestive Heart Failure: No Hx Pacemaker: No Hx Hypertension: No Hx Thyroid Disease: No Hx Diabetes: No Hx Gastroesophageal Reflux: No Hx Renal Disease: No Hx Cancer: No Hx of HIV: No Hx Hepatitis C: No Hx MRSA: No Surgical History: appendectomy - Vaccination History Hx Tetanus, Diphtheria Vaccination: No Hx Influenza Vaccination: No Hx Pneumococcal Vaccination: No - Social History Hx Tobacco Use: Yes Hx Chewing Tobacco Use: No Hx Alcohol Use: No Hx Substance Use: Yes - admit meth and marijuana but follows up w/MR and been sober Hx Substance Use Treatment: Yes Hx Depression: Yes Hx Physical Abuse: No Hx Emotional Abuse: No Hx Suspected Abuse: No - Activities of Daily Living Patient Lives Alone: No - Female History Patient is a Female of Child Bearing Age (10 -59 yrs old): Yes Hx Last Menstrual Period: 10/11/17 Patient : No Family Medical History - Family History Mother Family History: No Known Living Status: Still Living Hx Family Hypertension: Yes Physical Exam - Physical Exam General Appearance: Alert, Comfortable, No apparent distress Eye Exam: bilateral normal Ears, Nose, Throat: hearing grossly normal, normal ENT inspection, normal pharynx Neck: non-tender, full range of motion, supple, other - no meningeal signs Respiratory: chest non-tender, lungs clear, normal breath sounds, no respiratory distress Cardiovascular/Chest: normal peripheral pulses, regular rate, rhythm, no edema, no gallop, no murmur Peripheral Pulses: radial,right: 2+, radial,left: 2+ Gastrointestinal/Abdominal: normal bowel sounds, soft, no organomegaly, tenderness - lower abdomen no peritoneal signs Back Exam: CVA tenderness (R), CVA tenderness (L) Extremity: non-tender, normal inspection, no pedal edema, no calf tenderness Neurologic: alert, oriented x 3 Skin Exam: normal color, warm/dry Lymphatic: no adenopathy Progress - Progress Progress: 10/11/17 19:52 Vital Signs - 24 hr 10/11/17 19:15 Temperature 102.3 F H Pulse Rate [ 129 H monitor] Respiratory 20 Rate Blood Pressure 140/63 [Right Arm] O2 Sat by Pulse 100 Oximetry - Results/Orders Results/Orders: 10/11/17 19:50 IV Care:Saline Lock per Protoc QSHIFT 10/11/17 20:35 BLOOD CULTURE Stat 10/11/17 20:42 URINE CULTURE W/COLONY COUNT Stat 10/11/17 21:05 Hold Metformin x 48Hrs [id number] Laboratory Results - last 24 hr 10/11/17 10/11/17 10/11/17 19:50 19:50 19:50 WBC 20.3 H* RBC 4.69 Hgb 14.0 Hct 42.5 MCV 90.7 MCH 29.9 MCHC 33.0 RDW 13.2 Plt Count 229 MPV 8.8 Absolute Neuts (auto) 17.20 H Absolute Lymphs (auto) 1.30 Absolute Monos (auto) 1.80 H Absolute Eos (auto) 0.00 Absolute Basos (auto) 0.00 Neutrophils % 84.7 H Neutrophils % (Manual) 79.0 H Lymphocytes % 6.2 L Lymphocytes % (Manual) 9.0 Monocytes % 8.7 Monocytes % (Manual) 7.0 Eosinophils % 0.2 L Basophils % 0.2 Band Neutrophils 5.0 H Platelet Estimate Normal Normal RBC Morphology Normal rbc morph PT 10.4 INR 1.04 PTT (SP) 28.9 Sodium 135 Potassium 3.3 L Chloride 103 Carbon Dioxide 25 Anion Gap 10.3 L BUN 13 Creatinine 0.82 BUN/Creatinine Ratio 15.9 Random Glucose 125 H Serum Osmolality 271.7 L Lactic Acid 1.9 Calcium 8.7 Magnesium 1.6 L Total Bilirubin 0.4 Direct Bilirubin 0.1 Indirect Bilirubin 0.3 AST 19 ALT 19 Alkaline Phosphatase 74 Creatine Kinase 25 L CK-MB (CK-2) 0.4 CK-MB (CK-2) % Not Reportable Troponin I < 0.02 Serum Total Protein 7.0 Albumin 3.6 Urine Color Urine Appearance Urine pH Ur Specific Severance Urine Protein Urine Glucose (UA) Urine Ketones Urine Blood Urine Nitrite Urine Bilirubin Urine Urobilinogen Ur Leukocyte Esterase Urine RBC Urine WBC Ur Epithelial Cells Urine Bacteria Urine Opiates Screen Urine Barbiturates Ur Phencyclidine Scrn U Amphetamin/Meth Scrn U Benzodiazepines Scrn U Cocaine Metab Screen U Cannabinoids Screen 10/11/17 10/11/17 20:09 20:42 WBC RBC Hgb Hct MCV MCH MCHC RDW Plt Count MPV Absolute Neuts (auto) Absolute Lymphs (auto) Absolute Monos (auto) Absolute Eos (auto) Absolute Basos (auto) Neutrophils % Neutrophils % (Manual) Lymphocytes % Lymphocytes % (Manual) Monocytes % Monocytes % (Manual) Eosinophils % Basophils % Band Neutrophils Platelet Estimate Normal RBC Morphology PT INR PTT (SP) Sodium Potassium Chloride Carbon Dioxide Anion Gap BUN Creatinine BUN/Creatinine Ratio Random Glucose Serum Osmolality Lactic Acid Calcium Magnesium Total Bilirubin Direct Bilirubin Indirect Bilirubin AST ALT Alkaline Phosphatase Creatine Kinase CK-MB (CK-2) CK-MB (CK-2) % Troponin I Serum Total Protein Albumin Urine Color Yellow Urine Appearance Sl cloudy Urine pH 6.0 Ur Specific Severance 1.010 Urine Protein 30 Urine Glucose (UA) Negative Urine Ketones Negative Urine Blood Large H Urine Nitrite Positive H Urine Bilirubin Negative Urine Urobilinogen 1.0 Ur Leukocyte Esterase Large H Urine RBC 3-5 H Urine WBC Tntc H Ur Epithelial Cells 5-10 Urine Bacteria 4+ H Urine Opiates Screen Negative Urine Barbiturates Negative Ur Phencyclidine Scrn Negative U Amphetamin/Meth Scrn Positive H U Benzodiazepines Scrn Negative U Cocaine Metab Screen Negative U Cannabinoids Screen Positive H - EKG/XRAY/CT CT Ordered: Yes - abd/p-acute pyelonephritis right Departure - Departure Clinical Impression: Acute pyelonephritis, Flank pain, acute, Methamphetamine dependence Time of Disposition: 22:45 Disposition: Admit Patient Condition: Fair Departure Forms: Patient Portal Self Enrollment Referrals: Emigdio Gongora MD [Primary Care Provider] - 1-2 Weeks Home Medications: Ambulatory Orders Escitalopram [Lexapro] 10 mg PO DAILY 10/11/17 Levalbuterol HCl [Xopenex] 0.63 mg IN PRN 10/11/17 Decision To Admit - Decistion To Admit Decision to Admit Reason: Admit from ER Decision to Admit Date: 10/11/17 - D/W Radha Baker -ANP/Hospitalist Decision to Admit Time: 22:47
[2017-10-11] MEDS ORDERED: SODIUM CHLORIDE 0.9% 1000ML 1,000 ML IVS ONE (19:50)
[2017-10-11] MEDS ORDERED: ACETAMINOPHEN 500 MG TAB PO ONE (19:51)
[2017-10-11] MEDS ORDERED: KETOROLAC TROMETHAMINE INJ 30 MG/ML VIAL IV ONE (19:51)
--- NOTE | 2017-10-11 20:21 | RAD ---
EXAM DESCRIPTION: Chest,1 View CLINICAL HISTORY: cough /fever COMPARISON: 06/04/2017 FINDINGS: Cardiac silhouette is within normal limits. There is no focal parenchymal or pleural disease. Visualized osseous structures are within normal limits. IMPRESSION: No evidence of acute cardiopulmonary disease. Electronically signed by: Dax Hou 10/11/2017 8:20 PM CDT
--- NOTE | 2017-10-11 21:07 | CT ---
EXAM: CT Abdomen and Pelvis Without Intravenous Contrast CLINICAL HISTORY: The patient is 22 years old and is Female; flank pain TECHNIQUE: Axial computed tomography images of the abdomen and pelvis without intravenous contrast. This exam was performed according to our departmental dose-optimization program, which includes automated exposure control, adjustment of the mA and/or kV according to patient size and/or use of iterative reconstruction technique. As a consequence of the lack of intravenous contrast, there is limited evaluation of the organs and soft tissues. Coronal and sagittal images were also reviewed. COMPARISON: Prior noncontrast CT from 03/17/2015. FINDINGS: LUNG BASES: Unremarkable. No mass. No consolidation. ABDOMEN: LIVER: Unremarkable noncontrast appearance of the liver. GALLBLADDER AND BILE DUCTS: Unremarkable. No calcified stones. No ductal dilation. PANCREAS: Unremarkable. No ductal dilation. SPLEEN: Unremarkable. No splenomegaly. No splenic lesion noted. ADRENALS: Unremarkable. No mass. KIDNEYS AND URETERS: There is been a change since the prior study. There is now RIGHT renal enlargement with perinephric stranding and mild RIGHT hydronephrosis. There is also mild RIGHT hydroureter which extends to at least the RIGHT deep pelvis. It is very difficult to follow. No left-sided nephrolithiasis. STOMACH AND BOWEL: There is no evidence of diverticulitis. There is no evidence of bowel obstruction. There is NO oral contrast. PELVIS: APPENDIX: There are postsurgical changes from prior appendectomy. BLADDER: Urinary bladder is unremarkable. No stones. REPRODUCTIVE: LEFT ovary unremarkable. There appears to be a lobulated uterus, possibly from a fibroid, new since the prior study. ABDOMEN and PELVIS: INTRAPERITONEAL SPACE: Unremarkable. No free air. No significant fluid collection. BONES/JOINTS: No acute fracture. No dislocation. SOFT TISSUES: Unremarkable. VASCULATURE: Unremarkable. No abdominal aortic aneurysm. LYMPH NODES: Unremarkable. No significant retroperitoneal or pelvic lymphadenopathy. OTHER FINDINGS: IMPRESSION: There is been a change since the prior study. There is now RIGHT renal enlargement with perinephric stranding and mild RIGHT hydronephrosis. There is also mild RIGHT hydroureter which extends to at least the RIGHT deep pelvis. It is very difficult to follow. The uterus is lobulated. This is new since the prior study. It could be from a fibroid. THIS REPORT CONTAINS FINDINGS THAT MAY BE CRITICAL TO PATIENT CARE: The findings were verbally communicated via telephone conference with Sim Lopez M.D. by Dr. Deven Pabon on 10/11/2017 9:04 PM CDT .The results were acknowledged and understood. The patient has a history of intravenous drug use. The findings of the RIGHT kidney could be on the basis of a recently passed stone or pyelonephritis. Recommendation at this time is for repeat CT with intravenous contrast. This would also better evaluate the uterus and defined the uterine mass to ensure that the RIGHT ureter is not being obstructed by this new uterine abnormality. Electronically signed by: Deven Pabon MD 10/11/2017 9:05 PM CDT
[2017-10-11] MEDS ORDERED: levoFLOXacin 500MG IV 500 MG in PREMIX BAG 1 BAG IVPB ONE (21:09)
[2017-10-11] MEDS ORDERED: levoFLOXacin 500MG IV 100 ML IVPB ONE (21:11)
--- NOTE | 2017-10-11 21:44 | CT ---
EXAM: CT Abdomen and Pelvis With Intravenous Contrast CLINICAL HISTORY: The patient is 22 years old and is Female; lower abdomen pain history of IVDU TECHNIQUE: Axial computed tomography images of the abdomen and pelvis with intravenous contrast. This exam was performed according to our departmental dose-optimization program, which includes automated exposure control, adjustment of the mA and/or kV according to patient size and/or use of iterative reconstruction technique. Coronal and sagittal reformats were submitted and reviewed. COMPARISON: Prior CT from earlier this evening FINDINGS: LUNG BASES: Lung bases are clear. ABDOMEN: LIVER: Unremarkable. No discrete intrahepatic lesion noted. GALLBLADDER AND BILE DUCTS: Unremarkable. No calcified stones. No ductal dilation. PANCREAS: Unremarkable. No ductal dilation. No discrete lesion. No acute micki-pancreatic inflammatory change. SPLEEN: Unremarkable. No splenomegaly. No splenic lesion noted. ADRENALS: Unremarkable. No mass. KIDNEYS AND URETERS: The contrast enhanced study now demonstrates two focal areas of abnormal renal attenuation on the RIGHT. These areas are suspected to be involved with either multifocal acute pyelonephritis or developing lobar nephronia (abscess). I favor the former. This is best seen in the upper pole the RIGHT kidney laterally and in the lower pole of the RIGHT kidney anteriorly. LEFT kidney is unremarkable. Right-sided hydronephrosis has resolved although perinephric stranding remains. Mild RIGHT hydroureter remains to the level of the RIGHT pelvis. STOMACH AND BOWEL: Unremarkable. No obstruction. No mucosal thickening. PELVIS: APPENDIX: The appendix is surgically absent. BLADDER: Unremarkable. No mass. REPRODUCTIVE: There is no pelvic mass. The uterus and RIGHT ovary are normal. ABDOMEN and PELVIS: INTRAPERITONEAL SPACE: Unremarkable. No free air. No significant fluid collection. BONES/JOINTS: No acute fracture. No dislocation. SOFT TISSUES: Small fat-containing umbilical hernia. VASCULATURE: Unremarkable. No abdominal aortic aneurysm. LYMPH NODES: Unremarkable. No significant retroperitoneal or pelvic lymphadenopathy. IMPRESSION: 1. The contrast enhanced study now demonstrates two focal areas of abnormal renal attenuation on the RIGHT. These areas are suspected to be involved with either multifocal acute pyelonephritis or developing lobar nephronia (abscess). I favor the former. This is best seen in the upper pole the RIGHT kidney laterally and in the lower pole of the RIGHT kidney anteriorly. 2. There is no pelvic mass. The uterus and RIGHT ovary are normal. This was an artifactual finding on the prior study. 3. THIS REPORT CONTAINS FINDINGS THAT MAY BE CRITICAL TO PATIENT CARE: The findings were verbally communicated via telephone conference with Sim Lopez M.D. by Dr. Deven Pabon on 10/11/2017 9:41 PM CDT .The results were acknowledged and understood. Electronically signed by: Deven Pabon MD 10/11/2017 9:43 PM CDT
--- NOTE | 2017-10-11 23:37 | HP ---
SUPERVISING PHYSICIAN: Germain Perez MD CHIEF COMPLAINT: Right flank pain and fever. HISTORY OF PRESENT ILLNESS: This is a 22-year-old female who came to the Emergency Room last night due to some right flank pain and fever as high as 102 at home. She states the fever just came up last night and there was not several days of fever. Also, she did not have any burning or pain with urination other than the flank pain. In the Emergency Room, she did have a workup which showed a white count of 20,000. Chemistry showed potassium 3.3, glucose 125, magnesium 1.6. She did have a drug screen also which was positive for methamphetamines and cannabinoids. Urinalysis was positive for nitrites and showed WBCs too numerous to count on the urinalysis. Cultures were sent. Due to her flank pain, she did have a CT scan of the abdomen and pelvis. It did show some findings consistent with right pyelonephritis and did not rule out the fact that there might be a little bit of abscess on the upper pole of the right kidney and the lower pole of the right kidney anteriorly. However, the report states it is likely pyelonephritis and not an abscess. She was admitted last night, placed on IV fluids and antibiotics. This morning, she was able to eat her breakfast without any difficulties. PAST MEDICAL HISTORY: 1. Asthma. 2. Depression. PAST SURGICAL HISTORY: 1. Appendectomy. CURRENT MEDICATIONS: 1. Lexapro 10 mg daily. 2. Xopenex 0.63 mg q.4h. p.r.n. for wheezing. ALLERGIES: PENICILLIN. FAMILY HISTORY: Reviewed and noncontributory. SOCIAL HISTORY: The patient does smoke. No significant alcohol consumption. She is in treatment for methamphetamine abuse. She states she has not taken it in a while, however, upon further review, she states it has been 4 days since the last time she used meth. REVIEW OF SYSTEMS: CONSTITUTIONAL: Positive for fever and chills. No recent weight loss or weight gain. HEENT: No headaches, vision changes, ear pain, nasal congestion or throat pain. NECK: No neck stiffness, swelling or neck pain. RESPIRATORY: No cough, hemoptysis or pleuritic chest pain. CARDIOVASCULAR: No chest pain, palpitations or peripheral edema. GASTROINTESTINAL: No nausea, vomiting, diarrhea, constipation or abdominal pain. GENITOURINARY: No dysuria, frequency, but positive for right sided flank pain. HEMATOLOGIC: No easy bruising and no transfusion reaction. MUSCULOSKELETAL: No back pain, muscle cramps, joint pain or joint swelling. ENDOCRINE: No polydipsia, polyuria, polyphagia. No heat or cold intolerance. NEUROLOGIC: No syncope, paresthesias, seizures. PHYSICAL EXAMINATION: VITAL SIGNS: Blood pressure 116/78. Heart rate 105. Respiratory rate 18. Temperature 100.0. Oxygen saturation 97%. GENERAL: Ms. Bustamante is a 22-year-old female in no acute distress currently. HEENT: Normocephalic, atraumatic. Pupils are equal and reactive. No nasal drainage. Throat with moist mucosa. NECK: Supple. Midline trachea. No jugular venous distention. CHEST: Symmetrical with equal rise and fall of the chest with inspiration and expiration. Lung sounds are clear to auscultation bilaterally. CARDIOVASCULAR: Regular rate and rhythm. Normal S1, S2. ABDOMEN: Soft. Positive bowel sounds. She does have noted right sided flank pain with percussion. GENITOURINARY: Deferred. EXTREMITIES: Lower extremities with no edema. Pulses 2+. Capillary refill is less than 2 seconds. NEUROLOGIC: The patient is alert and oriented. Moves all extremities. Extraocular movements are intact. LABORATORY: Labs and films are reviewed via the EMR. ASSESSMENT: 1. Right sided pyelonephritis. 2. History of asthma with no acute exacerbation. 3. Depression. 4. History of methamphetamine abuse. PLAN: 1. The patient has been admitted and will be placed on continuous IV fluids along with IV antibiotics. We will review cultures and adjust accordingly. 2. Restart her home medications. 3. DVT and GI ulcer prophylaxis. #[id number] [facility]
[2017-10-12] MEDS ORDERED: IV SET AND CAP CHANGE INJ INJ SCH
[2017-10-12] MEDS ORDERED: ACETAMINOPHEN 325 MG TAB PO PRN
[2017-10-12] MEDS ORDERED: ONDANSETRON INJ 4 MG/2 ML VIAL IV PRN
[2017-10-12] MEDS ORDERED: SODIUM CHLORIDE 0.9% (FLUSH) 10 ML SYG IV PRN
[2017-10-12] MEDS: KCL 20MEQ/0.45% NS 1,000 ML IVS PRN ×2 (00:14→08:18)
[2017-10-12] MEDS ORDERED: LEVALBUTEROL NEBS 1.25 MG/3 ML VIAL NEB PRN (00:14)
[2017-10-12] MEDS ORDERED: ENOXAPARIN SODIUM 40 MG/0.4 ML SYG SUBCU SCH (00:30)
[2017-10-12] MEDS ORDERED: PANTOPRAZOLE SODIUM IV 40 MG VIAL IV SCH ×2 (00:30→21:00)
[2017-10-12] MEDS: HYDROcodone 5MG/APAP 325MG 1 EA TAB PO PRN ×4 (04:29→20:54)
[2017-10-12] MEDS: LEVALBUTEROL NEBS 1.25 MG/3 ML VIAL NEB SCH ×4 (08:31→21:50)
[2017-10-12] MEDS ORDERED: LEVALBUTEROL NEBS 0.63 MG/3 ML VIAL NEB PRN (09:19)
[2017-10-12] MEDS: SODIUM CHLORIDE 0.9% (FLUSH) 10 ML SYG IV SCH ×2 (09:19→20:38)
[2017-10-12] MEDS ORDERED: MAGNESIUM SULFATE PREMIX 2GM 2 GM in PREMIX BAG 1 BAG IVPB ONE (09:48)
[2017-10-12] MEDS: ESCITALOPRAM 10 MG TAB PO SCH (09:50)
[2017-10-12] MEDS ORDERED: MAGNESIUM SULFATE PREMIX 2GM 50 ML IVPB ONE (10:01)
[2017-10-12] MEDS: PANTOPRAZOLE SODIUM TAB 40 MG PO SCH (16:09)
[2017-10-12] MEDS: NICOTINE PATCH 14 MG TD SCH (16:09)
[2017-10-12] MEDS: KCL 20 MEQ/NS 1,000 ML IVS PRN (16:09)
[2017-10-12] MEDS ORDERED: levoFLOXacin 500MG IV 100 ML IVPB ONE (19:57)
[2017-10-12] MEDS: levoFLOXacin 500MG IV 500 MG in PREMIX BAG 1 BAG IVPB SCH (20:37)
[2017-10-12] MEDS: ENOXAPARIN SODIUM 40 MG/0.4 ML SYG SUBCU SCH (20:38)
[2017-10-13] MEDS: KCL 20 MEQ/NS 1,000 ML IVS PRN ×3 (01:58→18:03)
[2017-10-13] MEDS: HYDROcodone 5MG/APAP 325MG 1 EA TAB PO PRN ×3 (02:01→22:01)
[2017-10-13] MEDS: PANTOPRAZOLE SODIUM TAB 40 MG PO SCH (06:49)
[2017-10-13] MEDS: LEVALBUTEROL NEBS 1.25 MG/3 ML VIAL NEB SCH ×4 (08:42→20:20)
[2017-10-13] MEDS: SODIUM CHLORIDE 0.9% (FLUSH) 10 ML SYG IV SCH ×2 (09:00→20:37)
[2017-10-13] MEDS: ESCITALOPRAM 10 MG TAB PO SCH (09:19)
[2017-10-13] MEDS: NICOTINE PATCH 14 MG TD SCH (09:21)
--- NOTE | 2017-10-13 09:31 | PN ---
SUPERVISING PHYSICIAN: Germain Perez MD DATE: 10/13/17 SUBJECTIVE: The patient states she feels okay this morning. She states she is a little bit sore. She indicates that last night she did spike a fever of 101, although I do not see that on the record. She is asking to go outside and smoke , but I told her that she probably could not do that. She is able to tolerate her diet fairly well. OBJECTIVE: VITAL SIGNS: Blood pressure 102/69. Heart rate 87. Respiratory rate 18. Temperature 98.0. Oxygen saturation 99%. GENERAL: Ms. Bustamante is a 22-year-old female in no active distress. NEUROLOGIC: Alert and oriented. LUNGS: Clear to auscultation bilaterally. CARDIOVASCULAR: Regular rate and rhythm. Normal S1, S2. ABDOMEN: Soft. Positive bowel sounds. GENITOURINARY: Deferred. EXTREMITIES: Pulses 2+. Capillary refill is less than 3 seconds. LABORATORY: White count 10,900, hemoglobin 11.9, hematocrit 34.3, platelet count 174. Chemistry is unremarkable. ASSESSMENT: 1. Right sided pyelonephritis. 2. History of asthma without acute exacerbation. 3. Depression. 4. History of methamphetamine abuse. PLAN: With the improvement in white count, she is likely on the appropriate antibiotics. However, the cultures are still pending. We will continue IV fluids and antibiotics for another 24 hours. Reevaluate her blood work in the morning and she will likely be discharged tomorrow. Hopefully her culture will come back and we can discharge based on sensitivities. #[id number] [facility]
[2017-10-13] MEDS ORDERED: levoFLOXacin 500MG IV 100 ML IVPB ONE (19:20)
[2017-10-13] MEDS: levoFLOXacin 500MG IV 500 MG in PREMIX BAG 1 BAG IVPB SCH (20:36)
[2017-10-13] MEDS: ENOXAPARIN SODIUM 40 MG/0.4 ML SYG SUBCU SCH (20:36)
[2017-10-14] MEDS: KCL 20 MEQ/NS 1,000 ML IVS PRN (06:11)
[2017-10-14] MEDS: PANTOPRAZOLE SODIUM TAB 40 MG PO SCH (06:11)
[2017-10-14] MEDS: LEVALBUTEROL NEBS 1.25 MG/3 ML VIAL NEB SCH (08:33)
[2017-10-14] MEDS: HYDROcodone 5MG/APAP 325MG 1 EA TAB PO PRN (08:46)
[2017-10-14] MEDS: ESCITALOPRAM 10 MG TAB PO SCH (08:46)
[2017-10-14] MEDS: NICOTINE PATCH 14 MG TD SCH (08:47)
[2017-10-14] MEDS: SODIUM CHLORIDE 0.9% (FLUSH) 10 ML SYG IV SCH (08:48)
[2017-10-14 10:58] VITALS: BP 121/71; TEMP 97.2; O2SAT 99
--- NOTE | 2017-10-16 10:25 | DS ---
SUPERVISING PHYSICIAN: Germain Perez MD DISCHARGE DIAGNOSIS: 1. Right sided pyelonephritis. 2. History of asthma without an acute exacerbation. 3. Depression. 4. History of methamphetamine abuse. HISTORY OF PRESENT ILLNESS: This is a 22-year-old female patient who came to the Emergency Room on the night prior to her admission with some right flank pain and fever that was up to 102. The fever just started and she had not had any in the past several days. There was no burning or pain with urination, but there was significant right flank pain. In the Emergency Room, she had a white count of 20,000 with potassium 3.3, glucose 125, magnesium 1.6. Her drug screen was positive for methamphetamines and cannabinoids. Urinalysis was positive for nitrites and showed WBCs too numerous to count on the urinalysis. Cultures were sent. Due to her flank pain, she did have a CT scan of the abdomen and pelvis. It did show some findings consistent with right pyelonephritis and did not rule out the fact that there might be a little bit of abscess on the upper pole of the right kidney and the lower pole of the right kidney anteriorly. However, the report states it is likely pyelonephritis and not an abscess. She was admitted and given on IV fluids and antibiotics. HOSPITAL COURSE: She was NPO overnight. She was started on Levaquin. By morning, she was able to eat solid foods. Her vital signs remained stable. After initiation of antibiotics, she no longer was febrile. [facility] was contacted and she is currently one of their patients being treated for her methamphetamine use. They were aware she was in the hospital. Her white count went as high as 20,300 and on date of discharge, it was 10,100. Her potassium was slightly low initially and now it is improved to 4.6. She was given magnesium supplementation. Her urine culture showed E. coli an was sensitive to Levaquin. Her preliminary blood cultures showed no growth. She will be discharged home in stable condition. DISCHARGE PLAN: The patient will be discharged home in stable condition. She is to continue her antibiotics as ordered. She is to increase activity as tolerated. She is to followup with Lise Arriola on 10/29/17 as hospital followup. She is to return to the hospital or followup with Lise Arriola's office for any other problems or complications. DISCHARGE MEDICATIONS: 1. Xopenex. 2. Lexapro. 3. Tylenol with codeine #3. 4. Levaquin. #[id number] [facility]
== END 2017-10-14 11:45 | disposition home or self-care (01) | DRG 690 ==
LOC: ER 19:07 → MS 23:36 → OBSVTOIN 23:36
PROVIDERS: ADMIT Nurse Practitioner; ATTEND Nurse Practitioner Acute Care
DX: N10 Acute pyelonephritis (principal); J45.909 Unspecified asthma, uncomplicated; F32.9 Major depressive disorder, single episode, unspecified; F15.10 Other stimulant abuse, uncomplicated; E87.6 Hypokalemia; F17.210 Nicotine dependence, cigarettes, uncomplicated; Z88.0 Allergy status to penicillin; Z88.8 Allergy status to other drugs, medicaments and biological substances; Z79.899 Other long term (current) drug therapy; B96.20 Unspecified Escherichia coli [E. coli] as the cause of diseases classified elsewhere

== ENCOUNTER 2017-12-30 18:47 | Emergency (ER) | payer SELFPAY ==
[2017-12-30] MEDS ORDERED: SODIUM CHLORIDE 0.9% 1000ML 1,000 ML IVS ONE (19:27)
[2017-12-30] MEDS ORDERED: ONDANSETRON INJ 4 MG/2 ML VIAL IV ONE (19:27)
--- NOTE | 2017-12-30 19:28 | ED.PDOC ---
History of Present Illness - General Chief Complaint: GI Problem Stated Complaint: n/v x24hrs, 14 wks pg Time Seen by Provider: 12/30/17 18:58 Source: patient Exam Limitations: no limitations - History of Present Illness Initial Comments: Rani Bustamante 22 y/o female brought by mom with nausea/vomiting since yesterday presently 14 w EGA ;LMP-10/07 2017;ALESHIA 2018 had positve test done at [facility] a month ago.Has OB appointment next week.Denies abdominal pain vaginal spotting/bleeding,no diarrhea ,had regular bm this am. Timing/Duration: changing over time, other - yesterday Worsening Factors: eating Associated Symptoms: denies symptoms Allergies/Adverse Reactions: Allergies Amoxicillin Allergy (Intermediate, Verified 10/12/17 00:13) Hives Ethanol [From Robitussin] Allergy (Verified 10/12/17 00:13) vomits Guaifenesin [From Robitussin] Allergy (Verified 10/12/17 00:13) Penicillins Allergy (Verified 10/12/17 00:13) Hives Home Medications: Ambulatory Orders Escitalopram [Lexapro] 10 mg PO DAILY 10/11/17 Levalbuterol HCl [Xopenex] 0.63 mg IN Q4HR PRN 10/11/17 Acetamin W/Cod #3 Tab [Tylenol w/CODEINE #3] 1 - 2 ea PO Q6HR #20 tab 10/14/17 Levofloxacin [Levaquin] 750 mg PO DAILY #7 tablet 10/14/17 Escitalopram [Lexapro] 10 mg PO DAILY #30 tab 12/30/17 Review of Systems - Review of Systems Constitutional: States: no symptoms reported EENTM: States: no symptoms reported Respiratory: States: no symptoms reported Cardiology: States: no symptoms reported Gastrointestinal/Abdominal: States: see HPI, vomiting Genitourinary: States: no symptoms reported Past Medical History (General) - Patient Medical History Hx Seizures: No Hx Stroke: No Hx Dementia: No Hx Asthma: Yes Hx of COPD: No Hx Cardiac Disorders: No Hx Congestive Heart Failure: No Hx Pacemaker: No Hx Hypertension: No Hx Thyroid Disease: No Hx Diabetes: No Hx Gastroesophageal Reflux: No Hx Renal Disease: No Hx Cancer: No Hx of HIV: No Hx Hepatitis C: No Hx MRSA: No Surgical History: no surgical history - Vaccination History Hx Tetanus, Diphtheria Vaccination: No Hx Influenza Vaccination: No Hx Pneumococcal Vaccination: No - Social History Hx Tobacco Use: Yes Hx Chewing Tobacco Use: No Hx Alcohol Use: No Hx Substance Use: Yes - last use 4-9 days ago Hx Substance Use Treatment: Yes Hx Depression: Yes Hx Physical Abuse: No Hx Emotional Abuse: No Hx Suspected Abuse: No - Female History Patient is a Female of Child Bearing Age (10 -59 yrs old): Yes Hx Last Menstrual Period: 10/11/17 Patient : No Expected Date of Delivery:: 07/15/18 Family Medical History - Family History Father Living Status: Still Living Hx Family Cancer: Yes - colon cancer Mother Family History: No Known Living Status: Still Living Hx Family Hypertension: Yes Physical Exam - Physical Exam General Appearance: Alert, Comfortable, No apparent distress Eye Exam: bilateral normal Ears, Nose, Throat: hearing grossly normal, normal ENT inspection, normal pharynx Neck: non-tender, full range of motion, supple, normal inspection Respiratory: chest non-tender, lungs clear, normal breath sounds Cardiovascular/Chest: normal peripheral pulses, regular rate, rhythm, no murmur Peripheral Pulses: radial,right: 2+, radial,left: 2+ Gastrointestinal/Abdominal: normal bowel sounds, non tender, soft, other - gravid uterus FHR- 120 Back Exam: no CVA tenderness, no vertebral tenderness Extremity: no pedal edema, no calf tenderness Neurologic: alert, oriented x 3 Progress - Progress Progress: 12/30/17 19:44 Vital Signs - 8 hr 12/30/17 19:00 Temperature 98.8 F Pulse Rate [ 97 H left] Respiratory 18 Rate Blood Pressure 131/85 [left] O2 Sat by Pulse 99 Oximetry - Results/Orders Results/Orders: 12/30/17 19:27 IV Care:Saline Lock per Protoc QSHIFT 12/30/17 20:12 URINE CULTURE W/COLONY COUNT Stat 12/30/17 22:29 URINE CULTURE W/COLONY COUNT Stat Laboratory Results - last 24 hr 12/30/17 12/30/17 12/30/17 19:27 19:27 20:00 WBC 22.2 H* RBC 5.25 Hgb 15.8 Hct 46.5 MCV 88.7 MCH 30.0 MCHC 33.9 RDW 13.3 Plt Count 330 MPV 9.0 Absolute Neuts (auto) 17.70 H Absolute Lymphs (auto) 3.20 Absolute Monos (auto) 1.00 H Absolute Eos (auto) 0.30 Absolute Basos (auto) 0.10 Neutrophils % 79.5 H Neutrophils % (Manual) 78.0 Lymphocytes % 14.4 L Lymphocytes % (Manual) 16.0 Monocytes % 4.5 Monocytes % (Manual) 3.0 Eosinophils % 1.3 Basophils % 0.3 Eosinophils 3.0 Platelet Estimate Normal Normal RBC Morphology Normal rbc morph Sodium 137 Potassium 3.6 Chloride 103 Carbon Dioxide 25 Anion Gap 12.6 BUN 10 Creatinine 0.57 L BUN/Creatinine Ratio 17.5 Random Glucose 84 Serum Osmolality 272.1 L Lactic Acid 0.9 Calcium 9.2 Total Bilirubin 0.4 AST 15 ALT 15 Alkaline Phosphatase 68 Serum Total Protein 8.0 Albumin 3.8 Globulin 4.2 H Albumin/Globulin Ratio 0.9 L Urine Color Urine Appearance Urine pH Ur Specific [place] Urine Protein Urine Glucose (UA) Urine Ketones Urine Blood Urine Nitrite Urine Bilirubin Urine Urobilinogen Ur Leukocyte Esterase Urine RBC Urine WBC Ur Epithelial Cells Urine Bacteria 12/30/17 20:12 WBC RBC Hgb Hct MCV MCH MCHC RDW Plt Count MPV Absolute Neuts (auto) Absolute Lymphs (auto) Absolute Monos (auto) Absolute Eos (auto) Absolute Basos (auto) Neutrophils % Neutrophils % (Manual) Lymphocytes % Lymphocytes % (Manual) Monocytes % Monocytes % (Manual) Eosinophils % Basophils % Eosinophils Platelet Estimate Normal RBC Morphology Sodium Potassium Chloride Carbon Dioxide Anion Gap BUN Creatinine BUN/Creatinine Ratio Random Glucose Serum Osmolality Lactic Acid Calcium Total Bilirubin AST ALT Alkaline Phosphatase Serum Total Protein Albumin Globulin Albumin/Globulin Ratio Urine Color Yellow Urine Appearance Sl cloudy Urine pH 7.0 Ur Specific [place] 1.020 Urine Protein Trace Urine Glucose (UA) Negative Urine Ketones Negative Urine Blood Negative Urine Nitrite Negative Urine Bilirubin Negative Urine Urobilinogen 0.2 Ur Leukocyte Esterase Small H Urine RBC 1-3 Urine WBC 5-10 H Ur Epithelial Cells 10-20 Urine Bacteria 2+ H Discuss all test result with patient and her mom that no dehydration and her elevation of her WBC is from her ;Lactic acid -normal;also requesting refill on her Lexapro 10 mg daily for her bipolar and had taken it on her first w/o untoward effect unable to call Md at [facility] ;patient ran out of NuVasives and she is going out of town. Departure - Departure Clinical Impression: Nausea vomiting and diarrhea Qualifiers: Weeks of gestation: 14 weeks Qualified Code(s): Z3A.14 - 14 weeks gestation of Time of Disposition: 22:59 Disposition: Discharge to Home or Self Care Condition: Good Departure Forms: ED Discharge - Pt. Copy, Patient Portal Self Enrollment Diet: bland diet - until better, other - Avoid greasy,spicy foods until better; may have crackers,toast bread,bananas,broth but no chicken noodle soup;romina simeon Referrals: Emigdio Gongora MD [Primary Care Provider] - 1-2 Weeks Prescriptions: Escitalopram [Lexapro] 10 mg PO DAILY #30 tab Home Medications: Ambulatory Orders Escitalopram [Lexapro] 10 mg PO DAILY 10/11/17 Levalbuterol HCl [Xopenex] 0.63 mg IN Q4HR PRN 10/11/17 Acetamin W/Cod #3 Tab [Tylenol w/CODEINE #3] 1 - 2 ea PO Q6HR #20 tab 10/14/17 Levofloxacin [Levaquin] 750 mg PO DAILY #7 tablet 10/14/17 Escitalopram [Lexapro] 10 mg PO DAILY #30 tab 12/30/17 Additional Instructions: Keep appointment with OB;return to ER as needed
[2017-12-30 19:36] VITALS: TEMP 98.8; O2SAT 99
[2017-12-30] MEDS ORDERED: PROMETHAZINE HCL INJ 25 MG/ML VIAL IM ONE (21:53)
[2017-12-30] MEDS ORDERED: PROMETHAZINE TAB (ER DISP) 25 MG TAB PO ONE (23:04)
[2017-12-30 23:21] VITALS: BP 130/70
== END 2017-12-30 23:21 | disposition home or self-care (01) ==
LOC: ER 18:47
DX: O21.0 Mild hyperemesis gravidarum (principal); O99.89 Other specified diseases and conditions complicating pregnancy, childbirth and the puerperium; R19.7 Diarrhea, unspecified; O99.512 Diseases of the respiratory system complicating pregnancy, second trimester; J45.909 Unspecified asthma, uncomplicated; O99.342 Other mental disorders complicating pregnancy, second trimester; F32.9 Major depressive disorder, single episode, unspecified; Z3A.14 14 weeks gestation of pregnancy; Z79.899 Other long term (current) drug therapy; Z87.891 Personal history of nicotine dependence
CPT/HCPCS: 36415; 80053; 81001; 83605; 85007; 85025; 87086; J2405; J2550; J7030; Q0169

== ENCOUNTER 2018-01-16 20:27 | Emergency (ER) | payer MEDICAID ==
[2018-01-16] MEDS ORDERED: CLINDAMYCIN HCL CAP 150 MG CAP PO ONE (20:45)
--- NOTE | 2018-01-16 20:54 | ED.PDOC ---
History of Present Illness - General Chief Complaint: Dental/Mouth Time Seen by Provider: 01/16/18 20:45 Source: patient Exam Limitations: no limitations - History of Present Illness Initial Comments: patient comes in with 2 day history of left-sided face pain and swelling with dental abscess. Patient states she has a history of methamphetamine abuse and so her teeth are in very poor shape. With her last she had recurrent tooth abscesses were she was treated with clindamycin secondary to her penicillin allergy. Patient states this time she's been clean for 90 days and actually went to rehabilitation at the start of the . She is about 13 weeks and has been having some complications during her rehabilitation stay. Today however she is here today for the swelling and tooth pain from her left upper molar. She's had no fever or chills but some nausea Timing/Duration: other - 2 days Severity: mild EENT Location: dental Prearrival Treatment: over the counter meds Improving Factors: nothing Worsening Factors: eating Associated Symptoms: facial pain/swelling Allergies/Adverse Reactions: Allergies Amoxicillin Allergy (Intermediate, Verified 10/12/17 00:13) Hives Ethanol [From Robitussin] Allergy (Verified 10/12/17 00:13) vomits Guaifenesin [From Robitussin] Allergy (Verified 10/12/17 00:13) Penicillins Allergy (Verified 10/12/17 00:13) Hives Home Medications: Ambulatory Orders Escitalopram [Lexapro] 10 mg PO DAILY 10/11/17 Levalbuterol HCl [Xopenex] 0.63 mg IN Q4HR PRN 10/11/17 Acetamin W/Cod #3 Tab [Tylenol w/CODEINE #3] 1 - 2 ea PO Q6HR #20 tab 10/14/17 Levofloxacin [Levaquin] 750 mg PO DAILY #7 tablet 10/14/17 Escitalopram [Lexapro] 10 mg PO DAILY #30 tab 12/30/17 Clindamycin HCl 300 mg PO TID #21 cap 01/16/18 Review of Systems - Review of Systems Constitutional: States: no symptoms reported. Denies: chills, fever EENTM: States: see HPI Respiratory: States: no symptoms reported. Denies: cough, short of breath, wheezing Cardiology: States: no symptoms reported. Denies: chest pain, palpitations Gastrointestinal/Abdominal: States: nausea. Denies: abdominal pain, vomiting Past Medical History (General) - Patient Medical History Hx Seizures: No Hx Stroke: No Hx Dementia: No Hx Asthma: Yes Hx of COPD: No Hx Cardiac Disorders: No Hx Congestive Heart Failure: No Hx Pacemaker: No Hx Hypertension: No Hx Thyroid Disease: No Hx Diabetes: No Hx Gastroesophageal Reflux: No Hx Renal Disease: No Hx Cancer: No Hx of HIV: No Hx Hepatitis C: No Hx MRSA: No - Vaccination History Hx Tetanus, Diphtheria Vaccination: No Hx Influenza Vaccination: No Hx Pneumococcal Vaccination: No - Social History Hx Tobacco Use: Yes Hx Chewing Tobacco Use: No Hx Alcohol Use: No Hx Substance Use: Yes - last use 4-9 days ago Hx Substance Use Treatment: Yes Hx Depression: Yes Hx Physical Abuse: No Hx Emotional Abuse: No Hx Suspected Abuse: No - Female History Hx Last Menstrual Period: 10/11/17 Patient : No Expected Date of Delivery:: 07/15/18 Family Medical History - Family History Father Living Status: Still Living Hx Family Cancer: Yes - colon cancer Mother Family History: No Known Living Status: Still Living Hx Family Hypertension: Yes Physical Exam - Physical Exam General Appearance: Alert, No apparent distress Eye Exam: bilateral normal Ear Exam: bilateral ear: TM normal Nasal Exam: normal inspection Throat Exam: other - broken and cavitary lesions throughout her mouth with left upper molar having slight swelling but no purulence and no fluctuance with broken tooth. Neck: non-tender, lymphadenopathy (L) Cardiovascular/Respiratory: regular rate, rhythm, no M/R/G, normal peripheral pulses, normal breath sounds, no respiratory distress Neurologic: alert, oriented x 3 Progress - Progress Progress: discussed with patient that although clindamycin as our first choice during with her severe allergy to penicillins at this time is the most appropriate thing to give her for her dental infection. Clindamycin started here and prescription given that she is to follow up on Thursday with her OB to the side further antibiotic treatment at that time. 01/16/18 20:55 Departure - Departure Clinical Impression: Dental caries, Tooth abscess Disposition: Discharge to Home or Self Care Condition: Good Departure Forms: ED Discharge - Pt. Copy, Patient Portal Self Enrollment Referrals: Emigdio Gongora MD [Primary Care Provider] - 1-2 Weeks Prescriptions: Clindamycin HCl 300 mg PO TID #21 cap Home Medications: Ambulatory Orders Escitalopram [Lexapro] 10 mg PO DAILY 10/11/17 Levalbuterol HCl [Xopenex] 0.63 mg IN Q4HR PRN 10/11/17 Acetamin W/Cod #3 Tab [Tylenol w/CODEINE #3] 1 - 2 ea PO Q6HR #20 tab 10/14/17 Levofloxacin [Levaquin] 750 mg PO DAILY #7 tablet 10/14/17 Escitalopram [Lexapro] 10 mg PO DAILY #30 tab 12/30/17 Clindamycin HCl 300 mg PO TID #21 cap 01/16/18 Additional Instructions: follow-up with her OB on Thursday and with dentist after she gets OB clearance.
[2018-01-17 01:28] VITALS: BP 117/66; TEMP 97.9; O2SAT 100
== END 2018-01-16 21:40 | disposition home or self-care (01) ==
LOC: ER 20:27
DX: O99.89 Other specified diseases and conditions complicating pregnancy, childbirth and the puerperium (principal); K04.7 Periapical abscess without sinus; K02.9 Dental caries, unspecified; O99.512 Diseases of the respiratory system complicating pregnancy, second trimester; J45.909 Unspecified asthma, uncomplicated; O99.342 Other mental disorders complicating pregnancy, second trimester; F32.9 Major depressive disorder, single episode, unspecified; Z79.899 Other long term (current) drug therapy; Z87.891 Personal history of nicotine dependence; Z88.0 Allergy status to penicillin; Z88.8 Allergy status to other drugs, medicaments and biological substances; Z3A.13 13 weeks gestation of pregnancy

== ENCOUNTER 2018-03-12 08:50 | Emergency (ER) | payer MEDICAID ==
[2018-03-12 09:24] VITALS: BP 128/79; TEMP 98.4; O2SAT 97
--- NOTE | 2018-03-12 09:25 | ED.PDOC ---
History of Present Illness - General Chief Complaint: Dental/Mouth Stated Complaint: left jaw pain Time Seen by Provider: 03/12/18 09:19 Source: patient Exam Limitations: no limitations - History of Present Illness Timing/Duration: yesterday Severity: moderate EENT Location: mouth, dental Prearrival Treatment: prescription meds - Keflex since yesterday Improving Factors: nothing Worsening Factors: nothing Associated Symptoms: tooth pain Allergies/Adverse Reactions: Allergies Amoxicillin Allergy (Intermediate, Verified 10/12/17 00:13) Hives Ethanol [From Robitussin] Allergy (Verified 10/12/17 00:13) vomits Guaifenesin [From Robitussin] Allergy (Verified 10/12/17 00:13) Penicillins Allergy (Verified 10/12/17 00:13) Hives Home Medications: Ambulatory Orders Escitalopram [Lexapro] 10 mg PO DAILY 10/11/17 Levalbuterol HCl [Xopenex] 0.63 mg IN Q4HR PRN 10/11/17 Acetamin W/Cod #3 Tab [Tylenol w/CODEINE #3] 1 - 2 ea PO Q6HR #20 tab 10/14/17 Levofloxacin [Levaquin] 750 mg PO DAILY #7 tablet 10/14/17 Escitalopram [Lexapro] 10 mg PO DAILY #30 tab 12/30/17 Clindamycin HCl 300 mg PO TID #21 cap 01/16/18 Review of Systems - Review of Systems Constitutional: Denies: chills, fever EENTM: Denies: ear pain, nose congestion, throat pain Respiratory: States: no symptoms reported Cardiology: States: no symptoms reported Gastrointestinal/Abdominal: Denies: abdominal pain, nausea, vomiting Genitourinary: States: no symptoms reported Musculoskeletal: States: no symptoms reported Skin: States: no symptoms reported Past Medical History (General) - Patient Medical History Hx Seizures: No Hx Stroke: No Hx Dementia: No Hx Asthma: Yes Hx of COPD: No Hx Cardiac Disorders: No Hx Congestive Heart Failure: No Hx Pacemaker: No Hx Hypertension: No Hx Thyroid Disease: No Hx Diabetes: No Hx Gastroesophageal Reflux: No Hx Renal Disease: No Hx Cancer: No Hx of HIV: No Hx Hepatitis C: No Hx MRSA: No - Vaccination History Hx Tetanus, Diphtheria Vaccination: No Hx Influenza Vaccination: No Hx Pneumococcal Vaccination: No - Social History Hx Tobacco Use: Yes Hx Chewing Tobacco Use: No Hx Alcohol Use: No Hx Substance Use: Yes - last use 4-9 days ago Hx Substance Use Treatment: Yes Hx Depression: Yes Hx Physical Abuse: No Hx Emotional Abuse: No Hx Suspected Abuse: No - Female History Hx Last Menstrual Period: 10/11/17 Patient : No Expected Date of Delivery:: 07/15/18 Family Medical History - Family History Father Living Status: Still Living Hx Family Cancer: Yes - colon cancer Mother Family History: No Known Living Status: Still Living Hx Family Hypertension: Yes Physical Exam - Physical Exam General Appearance: Alert, Obvious distress Eye Exam: bilateral normal Ear Exam: bilateral ear: auricle normal Nasal Exam: normal inspection Throat Exam: pharynx normal, dental tenderness Neck: non-tender, full range of motion, normal inspection Neurologic: alert, normal mood/affect Skin Exam: normal color, warm/dry Departure - Departure Clinical Impression: Compound dental caries Qualifiers: Weeks of gestation: 18 weeks Qualified Code(s): Z3A.18 - 18 weeks gestation of Disposition: Discharge to Home or Self Care Condition: Fair Departure Forms: ED Discharge - Pt. Copy, Patient Portal Self Enrollment Referrals: Emigdio Gongora MD [Primary Care Provider] - 1-2 Weeks Home Medications: Ambulatory Orders Escitalopram [Lexapro] 10 mg PO DAILY 10/11/17 Levalbuterol HCl [Xopenex] 0.63 mg IN Q4HR PRN 10/11/17 Acetamin W/Cod #3 Tab [Tylenol w/CODEINE #3] 1 - 2 ea PO Q6HR #20 tab 10/14/17 Levofloxacin [Levaquin] 750 mg PO DAILY #7 tablet 10/14/17 Escitalopram [Lexapro] 10 mg PO DAILY #30 tab 12/30/17 Clindamycin HCl 300 mg PO TID #21 cap 01/16/18
[2018-03-12] MEDS ORDERED: ACETAMINOPHEN W/COD #3 TAB 1 EA TAB PO ONE (09:31)
== END 2018-03-12 09:55 | disposition home or self-care (01) ==
LOC: ER 08:50
DX: O99.89 Other specified diseases and conditions complicating pregnancy, childbirth and the puerperium (principal); K02.9 Dental caries, unspecified; O99.342 Other mental disorders complicating pregnancy, second trimester; F32.9 Major depressive disorder, single episode, unspecified; O99.512 Diseases of the respiratory system complicating pregnancy, second trimester; J45.909 Unspecified asthma, uncomplicated; Z3A.18 18 weeks gestation of pregnancy; Z87.891 Personal history of nicotine dependence; Z88.0 Allergy status to penicillin; Z88.8 Allergy status to other drugs, medicaments and biological substances; Z79.899 Other long term (current) drug therapy

== ENCOUNTER 2018-03-16 22:20 | Emergency (ER) | payer SELFPAY ==
[2018-03-16 22:38] VITALS: TEMP 98.1
[2018-03-16] MEDS ORDERED: ACETAMINOPHEN W/COD #3 TAB 1 EA TAB PO ONE (22:40)
--- NOTE | 2018-03-16 22:43 | ED.PDOC ---
History of Present Illness - General Chief Complaint: Dental/Mouth Stated Complaint: Toothache Time Seen by Provider: 03/16/18 22:20 Source: patient Exam Limitations: no limitations - History of Present Illness Initial Comments: the patient is a 22-year-old female presenting secondary to dental pain for the second time in this week. There is no obvious evidence of any large infection and the patient is already on Keflex. She apparently is out of her Tylenol No. 3. She has already been instructed that she needs to have the tooth pulled.the patient is in her second trimester. Timing/Duration: unsure, 1 week Severity: moderate Improving Factors: nothing Worsening Factors: nothing Associated Symptoms: denies symptoms Allergies/Adverse Reactions: Allergies Amoxicillin Allergy (Intermediate, Verified 03/16/18 22:39) Hives Ethanol [From Robitussin] Allergy (Verified 03/16/18 22:39) vomits Guaifenesin [From Robitussin] Allergy (Verified 03/16/18 22:39) Penicillins Allergy (Verified 03/16/18 22:39) Hives Tramadol Allergy (Verified 03/16/18 22:39) Home Medications: Ambulatory Orders Escitalopram [Lexapro] 10 mg PO DAILY 10/11/17 Levalbuterol HCl [Xopenex] 0.63 mg IN Q4HR PRN 10/11/17 Acetamin W/Cod #3 Tab [Tylenol w/CODEINE #3] 1 - 2 ea PO Q6HR #20 tab 10/14/17 Levofloxacin [Levaquin] 750 mg PO DAILY #7 tablet 10/14/17 Escitalopram [Lexapro] 10 mg PO DAILY #30 tab 12/30/17 Clindamycin HCl 300 mg PO TID #21 cap 01/16/18 Acetaminophen W/ Codeine [Tylenol W/ CODEINE #3] 1 ea PO Q8HR PRN #15 03/16/18 Review of Systems - Review of Systems Constitutional: States: no symptoms reported EENTM: States: see HPI Respiratory: States: no symptoms reported Cardiology: States: no symptoms reported Gastrointestinal/Abdominal: States: no symptoms reported Genitourinary: States: no symptoms reported Musculoskeletal: States: no symptoms reported Skin: States: no symptoms reported Neurological: States: no symptoms reported Endocrine: States: no symptoms reported Past Medical History (General) - Patient Medical History Hx Seizures: No Hx Stroke: No Hx Dementia: No Hx Asthma: Yes Hx of COPD: No Hx Cardiac Disorders: No Hx Congestive Heart Failure: No Hx Pacemaker: No Hx Hypertension: No Hx Thyroid Disease: No Hx Diabetes: No Hx Gastroesophageal Reflux: No Hx Renal Disease: No Hx Cancer: No Hx of HIV: No Hx Hepatitis C: No Hx MRSA: No Surgical History: appendectomy - Vaccination History Hx Tetanus, Diphtheria Vaccination: Yes Hx Influenza Vaccination: Yes Hx Pneumococcal Vaccination: No Immunizations Up to Date: Yes - Social History Hx Tobacco Use: Yes Hx Chewing Tobacco Use: No Hx Alcohol Use: No Hx Substance Use: Yes - last use 4-9 days ago Hx Substance Use Treatment: Yes Hx Depression: Yes Feels Threatened In Home Enviroment: No Feels Threatened In a Relationship: No Hx Physical Abuse: No Hx Emotional Abuse: No Hx Suspected Abuse: No - Activities of Daily Living Hospice Agency (if applicable):: None - Female History Patient is a Female of Child Bearing Age (10 -59 yrs old): Yes Hx Last Menstrual Period: 10/11/17 Patient : Yes Expected Date of Delivery:: 06/17/18 - Triage Comment ED Triage Comment: Pt states that she has a bad tooth on the bottom left side of her mouth that began hurting really badly this morning. Pt states that her pain is 9/10. Pt also states that she is currently taking Keflex and has been taking tyleno for pain. Family Medical History - Family History Father Living Status: Still Living Hx Family Cancer: Yes - colon cancer Mother Family History: No Known Living Status: Still Living Hx Family Hypertension: Yes Physical Exam - Physical Exam General Appearance: Alert, Comfortable, No apparent distress Eye Exam: bilateral normal Ears, Nose, Throat: other - multiple dental caries with the posteriorleft inferior molar essentially eroded to the base. This is the one that is causing her pain. No evidence of abscess. Neck: full range of motion, supple Respiratory: no respiratory distress, no accessory muscle use Cardiovascular/Chest: normal peripheral pulses, no edema Gastrointestinal/Abdominal: soft Rectal Exam: deferred Neurologic: energy advisor II-XII nml as tested, alert, normal mood/affect, oriented x 3 Skin Exam: normal color Comments: Vital Signs - 24 hr 03/16/18 22:31 Temperature 98.1 F Pulse Rate [ 99 H Monitor] Respiratory 18 Rate Blood Pressure 173/96 [Left Arm] O2 Sat by Pulse 99 Oximetry Progress - Progress Progress: 03/16/18 22:43 the patient is a 22-year-old presenting for the second time of this week secondary to dental pain from a dental caries. She is already on Keflex which she should continue. She'll be written for short prescription of Tylenol No. 3. She needs to follow up with her lumpia wrapper maker and obviously see a dentist to get the tooth taken care of. ER warnings are given. Departure - Departure Clinical Impression: Caries involving multiple surfaces of tooth Disposition: Discharge to Home or Self Care Condition: Good Departure Forms: ED Discharge - Pt. Copy, Patient Portal Self Enrollment Instructions: DI for Dental Pain Diet: regular diet Activity: increase activity as tolerated Referrals: Emigdio Gongora MD [Primary Care Provider] - 1-2 Weeks Prescriptions: Acetaminophen W/ Codeine [Tylenol W/ CODEINE #3] 1 ea PO Q8HR PRN #15 PRN Reason: Moderate Pain Home Medications: Ambulatory Orders Escitalopram [Lexapro] 10 mg PO DAILY 10/11/17 Levalbuterol HCl [Xopenex] 0.63 mg IN Q4HR PRN 10/11/17 Acetamin W/Cod #3 Tab [Tylenol w/CODEINE #3] 1 - 2 ea PO Q6HR #20 tab 10/14/17 Levofloxacin [Levaquin] 750 mg PO DAILY #7 tablet 10/14/17 Escitalopram [Lexapro] 10 mg PO DAILY #30 tab 12/30/17 Clindamycin HCl 300 mg PO TID #21 cap 01/16/18 Acetaminophen W/ Codeine [Tylenol W/ CODEINE #3] 1 ea PO Q8HR PRN #15 03/16/18 Additional Instructions: the patient is a 22-year-old presenting for the second time of this week secondary to dental pain from a dental caries. She is already on Keflex which she should continue. She'll be written for short prescription of Tylenol No. 3. She needs to follow up with her lumpia wrapper maker and obviously see a dentist to get the tooth taken care of. ER warnings are given.
[2018-03-16 22:59] VITALS: BP 148/85; O2SAT 97
== END 2018-03-16 22:55 | disposition home or self-care (01) ==
LOC: ER 22:20
DX: O99.89 Other specified diseases and conditions complicating pregnancy, childbirth and the puerperium (principal); K02.9 Dental caries, unspecified; O99.342 Other mental disorders complicating pregnancy, second trimester; F32.9 Major depressive disorder, single episode, unspecified; O99.512 Diseases of the respiratory system complicating pregnancy, second trimester; J45.909 Unspecified asthma, uncomplicated; Z87.891 Personal history of nicotine dependence; Z3A.00 Weeks of gestation of pregnancy not specified; Z88.0 Allergy status to penicillin; Z88.8 Allergy status to other drugs, medicaments and biological substances

== ENCOUNTER 2018-03-17 01:00 | Emergency (ER) | payer SELFPAY ==
[2018-03-17 01:20] VITALS: BP 148/98; TEMP 97.5; O2SAT 98
[2018-03-17] MEDS ORDERED: ACETAMINOPHEN W/COD #3 TAB 1 EA TAB PO ONE (01:30)
--- NOTE | 2018-03-17 01:34 | ED.PDOC ---
History of Present Illness - General Chief Complaint: Dental/Mouth Stated Complaint: Toothache Time Seen by Provider: 03/17/18 01:26 Source: patient Exam Limitations: no limitations - History of Present Illness Initial Comments: the patient is a 22-year-old female and a second trimester presenting for the second time tonight secondary to dental pain. Pain is from dental caries on the left lower mandible. She is already on appropriate antibiotics. No evidence of any significant abscess formation. No evidence of any sepsis. Timing/Duration: 1 week Severity: moderate Improving Factors: nothing Worsening Factors: nothing Associated Symptoms: denies symptoms Allergies/Adverse Reactions: Allergies Amoxicillin Allergy (Intermediate, Verified 03/16/18 22:39) Hives Ethanol [From Robitussin] Allergy (Verified 03/16/18 22:39) vomits Guaifenesin [From Robitussin] Allergy (Verified 03/16/18 22:39) Penicillins Allergy (Verified 03/16/18 22:39) Hives Tramadol Allergy (Verified 03/16/18 22:39) Home Medications: Ambulatory Orders Escitalopram [Lexapro] 10 mg PO DAILY 10/11/17 Levalbuterol HCl [Xopenex] 0.63 mg IN Q4HR PRN 10/11/17 Acetamin W/Cod #3 Tab [Tylenol w/CODEINE #3] 1 - 2 ea PO Q6HR #20 tab 10/14/17 Levofloxacin [Levaquin] 750 mg PO DAILY #7 tablet 10/14/17 Escitalopram [Lexapro] 10 mg PO DAILY #30 tab 12/30/17 Clindamycin HCl 300 mg PO TID #21 cap 01/16/18 Acetaminophen W/ Codeine [Tylenol W/ CODEINE #3] 1 ea PO Q8HR PRN #15 03/16/18 Review of Systems - Review of Systems Constitutional: States: no symptoms reported EENTM: States: see HPI Respiratory: States: no symptoms reported Cardiology: States: no symptoms reported Gastrointestinal/Abdominal: States: no symptoms reported Genitourinary: States: no symptoms reported Musculoskeletal: States: no symptoms reported Skin: States: no symptoms reported Neurological: States: no symptoms reported Endocrine: States: no symptoms reported Hematologic/Lymphatic: States: no symptoms reported All other Systems: No Change from Baseline Past Medical History (General) - Patient Medical History Hx Seizures: No Hx Stroke: No Hx Dementia: No Hx Asthma: Yes Hx of COPD: No Hx Cardiac Disorders: No Hx Congestive Heart Failure: No Hx Pacemaker: No Hx Hypertension: No Hx Thyroid Disease: No Hx Diabetes: No Hx Gastroesophageal Reflux: No Hx Renal Disease: No Hx Cancer: No Hx of HIV: No Hx Hepatitis C: No Hx MRSA: No Surgical History: appendectomy - Vaccination History Hx Tetanus, Diphtheria Vaccination: Yes Hx Influenza Vaccination: Yes Hx Pneumococcal Vaccination: No Immunizations Up to Date: Yes - Social History Hx Tobacco Use: Yes Hx Chewing Tobacco Use: No Hx Alcohol Use: No Hx Substance Use: Yes - last use 4-9 days ago Hx Substance Use Treatment: Yes Hx Depression: Yes Feels Threatened In Home Enviroment: No Feels Threatened In a Relationship: No Hx Physical Abuse: No Hx Emotional Abuse: No Hx Suspected Abuse: No - Activities of Daily Living Hospice Agency (if applicable):: None - Female History Patient is a Female of Child Bearing Age (10 -59 yrs old): Yes Hx Last Menstrual Period: 10/11/17 Patient : Yes Expected Date of Delivery:: 06/17/18 - Triage Comment ED Triage Comment: Pt c/o tooth pain that is 10/10 on left lower side. Pt states that the medicine she was given earlier helped but the pain is back and is worse. 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 She is given another dose of Tylenol No. 3. She has already been given a prescription for Tylenol 3. Other medications are largely prohibitive to her secondary to allergies and state of . She will have to see a dentist to get this taken care of as soon as possible. Continue antibiotic. Departure - Departure Clinical Impression: Dental caries Disposition: Discharge to Home or Self Care Condition: Good Departure Forms: ED Discharge - Pt. Copy, Patient Portal Self Enrollment Diet: regular diet Activity: increase activity as tolerated Referrals: Emigdio Gongora MD [Primary Care Provider] - 1-2 Weeks Home Medications: Ambulatory Orders Escitalopram [Lexapro] 10 mg PO DAILY 10/11/17 Levalbuterol HCl [Xopenex] 0.63 mg IN Q4HR PRN 10/11/17 Acetamin W/Cod #3 Tab [Tylenol w/CODEINE #3] 1 - 2 ea PO Q6HR #20 tab 10/14/17 Levofloxacin [Levaquin] 750 mg PO DAILY #7 tablet 10/14/17 Escitalopram [Lexapro] 10 mg PO DAILY #30 tab 12/30/17 Clindamycin HCl 300 mg PO TID #21 cap 01/16/18 Acetaminophen W/ Codeine [Tylenol W/ CODEINE #3] 1 ea PO Q8HR PRN #15 03/16/18 Additional Instructions: the patient is a 22-year-old female presenting again tonight secondary to painful dental caries. She is given another dose of Tylenol No. 3. She has already been given a prescription for Tylenol 3. Other medications are largely prohibitive to her secondary to allergies and state of . She will have to see a dentist to get this taken care of as soon as possible. Continue antibiotic.
== END 2018-03-17 01:37 | disposition home or self-care (01) ==
LOC: ER 01:00
DX: O99.89 Other specified diseases and conditions complicating pregnancy, childbirth and the puerperium (principal); K02.9 Dental caries, unspecified; O99.342 Other mental disorders complicating pregnancy, second trimester; F32.9 Major depressive disorder, single episode, unspecified; O99.512 Diseases of the respiratory system complicating pregnancy, second trimester; J45.909 Unspecified asthma, uncomplicated; Z3A.00 Weeks of gestation of pregnancy not specified; Z87.891 Personal history of nicotine dependence; Z88.0 Allergy status to penicillin; Z88.8 Allergy status to other drugs, medicaments and biological substances

== ENCOUNTER 2018-04-04 12:52 | Emergency (ER) | payer MEDICAID, OTHER ==
[2018-04-04 13:25] VITALS: BP 136/87; TEMP 98.3; O2SAT 97
--- NOTE | 2018-04-04 13:52 | ED.PDOC ---
History of Present Illness - General Chief Complaint: Dental/Mouth Stated Complaint: Tooth ache and 24 wks Time Seen by Provider: 04/04/18 13:49 Source: patient Exam Limitations: no limitations - History of Present Illness Initial Comments: Rani Bustamante 22 y/o female stated for the last 3 days had been having toothache and her dental appointment Also she is pregnat at 24 w EGA denies problems with current . Timing/Duration: other - 3 days see hpi EENT Location: dental Prearrival Treatment: over the counter meds Presenting Symptoms: dental pain Improving Factors: nothing Worsening Factors: eating Associated Symptoms: denies symptoms Allergies/Adverse Reactions: Allergies Amoxicillin Allergy (Intermediate, Verified 03/16/18 22:39) Hives Ethanol [From Robitussin] Allergy (Verified 03/16/18 22:39) vomits Guaifenesin [From Robitussin] Allergy (Verified 03/16/18 22:39) Penicillins Allergy (Verified 03/16/18 22:39) Hives Tramadol Allergy (Verified 03/16/18 22:39) Home Medications: Ambulatory Orders Escitalopram [Lexapro] 10 mg PO DAILY 10/11/17 Levalbuterol HCl [Xopenex] 0.63 mg IN Q4HR PRN 10/11/17 Acetamin W/Cod #3 Tab [Tylenol w/CODEINE #3] 1 - 2 ea PO Q6HR #20 tab 10/14/17 Levofloxacin [Levaquin] 750 mg PO DAILY #7 tablet 10/14/17 Escitalopram [Lexapro] 10 mg PO DAILY #30 tab 12/30/17 Clindamycin HCl 300 mg PO TID #21 cap 01/16/18 Acetaminophen W/ Codeine [Tylenol W/ CODEINE #3] 1 ea PO Q8HR PRN #15 03/16/18 Acetamin W/Cod #3 Tab [Tylenol w/CODEINE #3] 1 ea PO TID PRN #5 tab 04/04/18 Clindamycin HCl 300 mg PO TID 7 Days #21 cap 04/04/18 Review of Systems - Review of Systems Constitutional: States: no symptoms reported EENTM: States: see HPI All other Systems: Reviewed and Negative, No Change from Baseline Past Medical History (General) - Patient Medical History Hx Seizures: No Hx Stroke: No Hx Dementia: No Hx Asthma: Yes Hx of COPD: No Hx Cardiac Disorders: No Hx Congestive Heart Failure: No Hx Pacemaker: No Hx Hypertension: No Hx Thyroid Disease: No Hx Diabetes: No Hx Gastroesophageal Reflux: No Hx Renal Disease: No Hx Cancer: No Hx of HIV: No Hx Hepatitis C: No Hx MRSA: No Surgical History: appendectomy - Vaccination History Hx Tetanus, Diphtheria Vaccination: Yes Hx Influenza Vaccination: Yes Hx Pneumococcal Vaccination: No - Social History Hx Tobacco Use: Yes Hx Chewing Tobacco Use: No Hx Alcohol Use: No Hx Substance Use: Yes - last use 4-9 days ago Hx Substance Use Treatment: Yes Hx Depression: Yes Hx Physical Abuse: No Hx Emotional Abuse: No Hx Suspected Abuse: No - Female History Hx Last Menstrual Period: 10/11/17 Patient : Yes Expected Date of Delivery:: 06/17/18 - Triage Comment ED Triage Comment: Patient states that she is having tooth ache since last night and pain is uncontrollable. States she is 24 wks gestation and tylenol is not working. Family Medical History - Family History Father Living Status: Still Living Hx Family Hypertension: Yes - multiple family members Hx Family Diabetes: Yes - multiple family members Hx Family Cancer: Yes - colon cancer Mother Family History: No Known Living Status: Still Living Hx Family Hypertension: Yes Physical Exam - Physical Exam General Appearance: Alert, Comfortable, No apparent distress Eye Exam: bilateral normal Ear Exam: bilateral ear: auricle normal, canal normal, TM normal Nasal Exam: normal inspection Throat Exam: pharynx normal, dental tenderness - left lower molar, other - multiple dental decay front incisors and left lower molar Neck: non-tender, supple, normal inspection, trachea midline Cardiovascular/Respiratory: regular rate, rhythm, no M/R/G, normal peripheral pulses Abdominal Exam: non-tender, no organomegaly, other - gravid uterus Neurologic: alert, oriented x 3 Skin Exam: normal color, warm/dry Progress - Progress Progress: 04/04/18 13:56 Vital Signs 04/04/18 04/04/18 13:00 13:17 Temperature 98.3 F Pulse Rate [ 87 87 monitor] Respiratory 16 Rate Blood Pressure 136/87 [Left Arm] O2 Sat by Pulse 97 Oximetry Departure - Departure Clinical Impression: Chronic pulpitis, Pain due to dental caries Time of Disposition: 13:57 Disposition: Discharge to Home or Self Care Condition: Fair Departure Forms: ED Discharge - Pt. Copy, Patient Portal Self Enrollment Instructions: DI for Mouth Pain, DI for Dental Pain Diet: other - soft diet until better Referrals: Emigdio Gongora MD [Primary Care Provider] - 1-2 Weeks Prescriptions: Acetamin W/Cod #3 Tab [Tylenol w/CODEINE #3] 1 ea PO TID PRN #5 tab PRN Reason: Pain Clindamycin HCl 300 mg PO TID 7 Days #21 cap Home Medications: Ambulatory Orders Escitalopram [Lexapro] 10 mg PO DAILY 10/11/17 Levalbuterol HCl [Xopenex] 0.63 mg IN Q4HR PRN 10/11/17 Acetamin W/Cod #3 Tab [Tylenol w/CODEINE #3] 1 - 2 ea PO Q6HR #20 tab 10/14/17 Levofloxacin [Levaquin] 750 mg PO DAILY #7 tablet 10/14/17 Escitalopram [Lexapro] 10 mg PO DAILY #30 tab 12/30/17 Clindamycin HCl 300 mg PO TID #21 cap 01/16/18 Acetaminophen W/ Codeine [Tylenol W/ CODEINE #3] 1 ea PO Q8HR PRN #15 03/16/18 Acetamin W/Cod #3 Tab [Tylenol w/CODEINE #3] 1 ea PO TID PRN #5 tab 04/04/18 Clindamycin HCl 300 mg PO TID 7 Days #21 cap 04/04/18 Additional Instructions: Keep appointment with dentist as scheduled
== END 2018-04-04 14:16 | disposition home or self-care (01) ==
LOC: ER 12:52
DX: O99.612 Diseases of the digestive system complicating pregnancy, second trimester (principal); K04.01 Reversible pulpitis; K02.9 Dental caries, unspecified; O99.512 Diseases of the respiratory system complicating pregnancy, second trimester; J45.909 Unspecified asthma, uncomplicated; O99.342 Other mental disorders complicating pregnancy, second trimester; F32.9 Major depressive disorder, single episode, unspecified; Z3A.24 24 weeks gestation of pregnancy; Z87.891 Personal history of nicotine dependence

== ENCOUNTER 2018-04-06 22:08 | Emergency (ER) | payer OTHER ==
[2018-04-06 22:22] VITALS: TEMP 98.8
[2018-04-06] MEDS ORDERED: HYDROcodone 7.5MG/APAP 325MG 1 EA TAB PO ONE (22:29)
--- NOTE | 2018-04-06 22:32 | ED.PDOC ---
History of Present Illness - General Chief Complaint: Dental/Mouth Stated Complaint: tootache Time Seen by Provider: 04/06/18 22:23 Source: patient Exam Limitations: no limitations - History of Present Illness Initial Comments: the patient is a 22-year-old female in her second trimester presenting secondary to dental pain. She has a fractured left posterior mandibular molar. The patient has had 5 visits for dental pain the last few months. She is on clindamycin. She ran out of her Tylenol No. 3. She is unable to find a dentist due to funding.no evidence of any obvious abscess formation. No evidence of any sepsis. Timing/Duration: unsure Severity: severe Improving Factors: nothing Worsening Factors: nothing Associated Symptoms: denies symptoms Allergies/Adverse Reactions: Allergies Amoxicillin Allergy (Intermediate, Verified 04/06/18 22:27) Hives Ethanol [From Robitussin] Allergy (Verified 04/06/18 22:27) vomits Guaifenesin [From Robitussin] Allergy (Verified 04/06/18 22:27) Penicillins Allergy (Verified 04/06/18 22:27) Hives Tramadol Allergy (Verified 04/06/18 22:27) Home Medications: Ambulatory Orders Escitalopram [Lexapro] 10 mg PO DAILY 10/11/17 Levalbuterol HCl [Xopenex] 0.63 mg IN Q4HR PRN 10/11/17 Acetamin W/Cod #3 Tab [Tylenol w/CODEINE #3] 1 - 2 ea PO Q6HR #20 tab 10/14/17 Levofloxacin [Levaquin] 750 mg PO DAILY #7 tablet 10/14/17 Escitalopram [Lexapro] 10 mg PO DAILY #30 tab 12/30/17 Clindamycin HCl 300 mg PO TID #21 cap 01/16/18 Acetaminophen W/ Codeine [Tylenol W/ CODEINE #3] 1 ea PO Q8HR PRN #15 03/16/18 Acetamin W/Cod #3 Tab [Tylenol w/CODEINE #3] 1 ea PO TID PRN #5 tab 04/04/18 Clindamycin HCl 300 mg PO TID 7 Days #21 cap 04/04/18 Ofqqjfbdkpzrk-Ukis-Esppopiivl [Fioricet] 1 ea PO Q8H PRN #21 tab 04/06/18 Review of Systems - Review of Systems Constitutional: States: no symptoms reported EENTM: States: see HPI Respiratory: States: no symptoms reported Cardiology: States: no symptoms reported Gastrointestinal/Abdominal: States: no symptoms reported Genitourinary: States: no symptoms reported Musculoskeletal: States: no symptoms reported Skin: States: no symptoms reported Neurological: States: no symptoms reported Endocrine: States: no symptoms reported All other Systems: No Change from Baseline Past Medical History (General) - Patient Medical History Hx Seizures: No Hx Stroke: No Hx Dementia: No Hx Asthma: Yes Hx of COPD: No Hx Cardiac Disorders: No Hx Congestive Heart Failure: No Hx Pacemaker: No Hx Hypertension: No Hx Thyroid Disease: No Hx Diabetes: No Hx Gastroesophageal Reflux: No Hx Renal Disease: No Hx Cancer: No Hx of HIV: No Hx Hepatitis C: No Hx MRSA: No Surgical History: appendectomy - Vaccination History Hx Tetanus, Diphtheria Vaccination: Yes Hx Influenza Vaccination: Yes Hx Pneumococcal Vaccination: No - Social History Hx Tobacco Use: Yes Hx Chewing Tobacco Use: No Hx Alcohol Use: No Hx Substance Use: Yes - last use 4-9 days ago Hx Substance Use Treatment: Yes Hx Depression: Yes Hx Physical Abuse: No Hx Emotional Abuse: No Hx Suspected Abuse: No - Female History Hx Last Menstrual Period: 10/11/17 Patient : Yes Expected Date of Delivery:: 06/17/18 - Triage Comment ED Triage Comment: Pt reports moderate pain to tooth on lower left side, feels like gums are swollen, throbbing sensation. Pt stated she is 24 wks Pg. Pt is taking Clindamycin already. Family Medical History - Family History Father Living Status: Still Living Hx Family Hypertension: Yes - multiple family members Hx Family Diabetes: Yes - multiple family members Hx Family Cancer: Yes - colon cancer Mother Family History: No Known Living Status: Still Living Hx Family Hypertension: Yes Physical Exam - Physical Exam General Appearance: Alert, Comfortable, No apparent distress Eye Exam: bilateral normal Ears, Nose, Throat: hearing grossly normal, normal ENT inspection Neck: full range of motion, supple Respiratory: no respiratory distress, no accessory muscle use Cardiovascular/Chest: normal peripheral pulses, no edema Peripheral Pulses: radial,right: 2+, radial,left: 2+ Gastrointestinal/Abdominal: soft, other - gravid and obese Rectal Exam: deferred Back Exam: normal inspection Extremity: normal range of motion, normal inspection, no pedal edema, normal capillary refill 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 She is already taking clindamycin. She is receiving a dose oral pain medications here. She is to keep follow-up with her embedded software manager and a dentist. She'll be written for Fioricet for as needed use. She needs to clean off the tooth really well and then apply topical clove oil. She can apply topical Orajel or Anbesol as well. ER warnings were given. Departure - Departure Clinical Impression: Pain due to dental caries Disposition: Discharge to Home or Self Care Condition: Fair Departure Forms: ED Discharge - Pt. Copy, Patient Portal Self Enrollment Instructions: DI for Dental Pain Diet: regular diet Activity: increase activity as tolerated Referrals: Emigdio Gongora MD [Primary Care Provider] - 1-2 Weeks Prescriptions: Dqdfqwkoinckl-Cywg-Axsykpotbi [Fioricet] 1 ea PO Q8H PRN #21 tab PRN Reason: Pain Home Medications: Ambulatory Orders Escitalopram [Lexapro] 10 mg PO DAILY 10/11/17 Levalbuterol HCl [Xopenex] 0.63 mg IN Q4HR PRN 10/11/17 Acetamin W/Cod #3 Tab [Tylenol w/CODEINE #3] 1 - 2 ea PO Q6HR #20 tab 10/14/17 Levofloxacin [Levaquin] 750 mg PO DAILY #7 tablet 10/14/17 Escitalopram [Lexapro] 10 mg PO DAILY #30 tab 12/30/17 Clindamycin HCl 300 mg PO TID #21 cap 01/16/18 Acetaminophen W/ Codeine [Tylenol W/ CODEINE #3] 1 ea PO Q8HR PRN #15 03/16/18 Acetamin W/Cod #3 Tab [Tylenol w/CODEINE #3] 1 ea PO TID PRN #5 tab 04/04/18 Clindamycin HCl 300 mg PO TID 7 Days #21 cap 04/04/18 Pxkhbbikxwuwv-Dgrg-Tedspuwgqk [Fioricet] 1 ea PO Q8H PRN #21 tab 04/06/18 Additional Instructions: the patient is a 22-year-old female presenting to emergency room secondary to dental pain from dental caries and a fractured tooth. She is already taking clindamycin. She is receiving a dose oral pain medications here. She is to keep follow-up with her embedded software manager and a dentist. She'll be written for Fioricet for as needed use. She needs to clean off the tooth really well and then apply topical clove oil. She can apply topical Orajel or Anbesol as well. ER warnings were given.
[2018-04-06 22:46] VITALS: BP 134/80; O2SAT 97
== END 2018-04-06 22:46 | disposition home or self-care (01) ==
LOC: ER 22:08
DX: O99.612 Diseases of the digestive system complicating pregnancy, second trimester (principal); K02.9 Dental caries, unspecified; S02.5XXA Fracture of tooth (traumatic), initial encounter for closed fracture; O99.342 Other mental disorders complicating pregnancy, second trimester; F32.9 Major depressive disorder, single episode, unspecified; O99.512 Diseases of the respiratory system complicating pregnancy, second trimester; J45.909 Unspecified asthma, uncomplicated; X58.XXXA Exposure to other specified factors, initial encounter; Y92.9 Unspecified place or not applicable; Z79.899 Other long term (current) drug therapy; Z3A.24 24 weeks gestation of pregnancy; Z87.891 Personal history of nicotine dependence; Z88.0 Allergy status to penicillin; Z88.8 Allergy status to other drugs, medicaments and biological substances

== ENCOUNTER 2018-04-22 14:43 | Emergency (ER) | payer OTHER ==
[2018-04-22 14:59] VITALS: BP 136/83; TEMP 98.8; O2SAT 98
--- NOTE | 2018-04-22 15:07 | ED.PDOC ---
History of Present Illness - General Chief Complaint: Dental/Mouth Time Seen by Provider: 04/22/18 14:44 Source: patient Exam Limitations: no limitations - History of Present Illness Initial Comments: the patient is a 22-year-old female presenting to the emergency room again for about the sixth time in the last 2 months secondary to dental pain. She has failed to obtain a dentist appointment. She is having pain again in the left posterior inferior molar where she has a cavity that has caused a fracture in the tooth. She did try clove oil once which did not help. She feels too uncomfortable scrubbing the tooth cleanto use Orajel in the cavity. there is no infection currently. Timing/Duration: unsure Severity: moderate Improving Factors: nothing Worsening Factors: nothing Associated Symptoms: denies symptoms Allergies/Adverse Reactions: Allergies Amoxicillin Allergy (Intermediate, Verified 04/06/18 22:27) Hives Ethanol [From Robitussin] Allergy (Verified 04/06/18 22:27) vomits Guaifenesin [From Robitussin] Allergy (Verified 04/06/18 22:27) Penicillins Allergy (Verified 04/06/18 22:27) Hives Tramadol Allergy (Verified 04/06/18 22:27) Home Medications: Ambulatory Orders Clindamycin HCl 300 mg PO TID #21 cap 01/16/18 Atzesprhoohto-Snyt-Psoohrdjfy [Fioricet] 1 ea PO Q8H PRN #21 tab 04/06/18 Review of Systems - Review of Systems Constitutional: States: no symptoms reported EENTM: States: see HPI Respiratory: States: no symptoms reported Cardiology: States: no symptoms reported Gastrointestinal/Abdominal: States: no symptoms reported Genitourinary: States: no symptoms reported Musculoskeletal: States: no symptoms reported Skin: States: no symptoms reported Neurological: States: no symptoms reported Endocrine: States: no symptoms reported All other Systems: No Change from Baseline Past Medical History (General) - Patient Medical History Hx Seizures: No Hx Stroke: No Hx Dementia: No Hx Asthma: Yes Hx of COPD: No Hx Cardiac Disorders: No Hx Congestive Heart Failure: No Hx Pacemaker: No Hx Hypertension: No Hx Thyroid Disease: No Hx Diabetes: No Hx Gastroesophageal Reflux: No Hx Renal Disease: No Hx Cancer: No Hx of HIV: No Hx Hepatitis C: No Hx MRSA: No Surgical History: appendectomy - Vaccination History Hx Tetanus, Diphtheria Vaccination: Yes Hx Influenza Vaccination: Yes Hx Pneumococcal Vaccination: No - Social History Hx Tobacco Use: Yes Hx Chewing Tobacco Use: No Hx Alcohol Use: No Hx Substance Use: Yes - last use 4-9 days ago Hx Substance Use Treatment: Yes Hx Depression: Yes Hx Physical Abuse: No Hx Emotional Abuse: No Hx Suspected Abuse: No - Female History Hx Last Menstrual Period: 10/11/17 Patient : Yes Expected Date of Delivery:: 06/17/18 Family Medical History - Family History Father Living Status: Still Living Hx Family Hypertension: Yes - multiple family members Hx Family Diabetes: Yes - multiple family members Hx Family Cancer: Yes - colon cancer Mother Family History: No Known Living Status: Still Living Hx Family Hypertension: Yes Physical Exam - Physical Exam General Appearance: Alert, Comfortable, No apparent distress Eye Exam: bilateral normal Ears, Nose, Throat: hearing grossly normal, other - multiple dental caries Neck: full range of motion, supple Respiratory: no respiratory distress, no accessory muscle use Cardiovascular/Chest: no edema Gastrointestinal/Abdominal: other - obese Rectal Exam: deferred Extremity: normal range of motion, no pedal edema 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 There is no evidence of infection at this time. The patient was given a dose of Fioricet. She needs to follow-up with her dentist. She can take 2 Advil twice daily with food as long as she is not . Additionally she can scrub the tooth clean and use Orajel or Anbesol to help reduce discomfort. Keep follow-up with dentist. ER warnings were given. Departure - Departure Clinical Impression: Chronic dental pain Disposition: Discharge to Home or Self Care Condition: Fair Departure Forms: ED Discharge - Pt. Copy, Patient Portal Self Enrollment Instructions: DI for Dental Pain Diet: regular diet Activity: increase activity as tolerated Referrals: Emigdio Gongora MD [Primary Care Provider] - 1-2 Weeks Home Medications: Ambulatory Orders Clindamycin HCl 300 mg PO TID #21 cap 01/16/18 Iuiqehnqscbiq-Cdnr-Rjyboeosav [Fioricet] 1 ea PO Q8H PRN #21 tab 04/06/18 Additional Instructions: the patient is a 22-year-old female presenting to the emergency room secondary to continued chronic pain from her dental caries. There is no evidence of infection at this time. The patient was given a dose of Fioricet. She needs to follow-up with her dentist. She can take 2 Advil twice daily with food as long as she is not . Additionally she can scrub the tooth clean and use Orajel or Anbesol to help reduce discomfort. Keep follow-up with dentist. ER warnings were given.
[2018-04-22] MEDS: ACETAMINOPHEN-CAFF-BUTALBITAL 1 EA TAB PO ONE (15:09)
== END 2018-04-22 15:12 | disposition home or self-care (01) ==
LOC: ER 14:43
DX: K02.9 Dental caries, unspecified (principal); G89.29 Other chronic pain; F32.9 Major depressive disorder, single episode, unspecified; J45.909 Unspecified asthma, uncomplicated; Z87.891 Personal history of nicotine dependence; Z88.0 Allergy status to penicillin; Z88.8 Allergy status to other drugs, medicaments and biological substances

== ENCOUNTER 2018-05-19 18:57 | Emergency (ER) | payer OTHER, SELFPAY ==
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
[2018-05-19 21:10] VITALS: BP 101/86; TEMP 98.2; O2SAT 99
== END 2018-05-19 21:10 | disposition home or self-care (01) ==
LOC: ER 18:57
DX: O9A.213 Injury, poisoning and certain other consequences of external causes complicating pregnancy, third trimester (principal); O99.513 Diseases of the respiratory system complicating pregnancy, third trimester; J45.909 Unspecified asthma, uncomplicated; O99.343 Other mental disorders complicating pregnancy, third trimester; F32.9 Major depressive disorder, single episode, unspecified; Z3A.32 32 weeks gestation of pregnancy; Z87.891 Personal history of nicotine dependence; Z88.8 Allergy status to other drugs, medicaments and biological substances; Z88.1 Allergy status to other antibiotic agents; Z88.0 Allergy status to penicillin; V49.59XA Passenger injured in collision with other motor vehicles in traffic accident, initial encounter; Y92.410 Unspecified street and highway as the place of occurrence of the external cause

== ENCOUNTER 2018-10-26 22:45 | Emergency (ER) | payer SELFPAY ==
[2018-10-26 23:04] VITALS: O2SAT 97
[2018-10-26] MEDS ORDERED: KETOROLAC TROMETHAMINE INJ 30 MG/ML VIAL IM ONE (23:28)
[2018-10-26] MEDS ORDERED: CLINDAMYCIN HCL CAP 150 MG CAP PO ONE (23:29)
--- NOTE | 2018-10-26 23:32 | ED.PDOC ---
History of Present Illness - General Chief Complaint: Dental/Mouth Stated Complaint: toothache Time Seen by Provider: 10/26/18 22:53 Source: patient - History of Present Illness Initial Comments: Patient presents with right maxillary molar pain for three days. It is sharp and throbbing, radiates to the right cheek, worse with movement, better with rest. She has had previous episodes on the left but none on the upper right. She has a dental appointment in 7 days. No other complaints. Timing/Duration: other - 3 days Severity: moderate Improving Factors: rest Worsening Factors: movement Associated Symptoms: denies symptoms Allergies/Adverse Reactions: Allergies Amoxicillin Allergy (Intermediate, Verified 04/06/18 22:27) Hives Ethanol [From Robitussin] Allergy (Verified 04/06/18 22:27) vomits Guaifenesin [From Robitussin] Allergy (Verified 04/06/18 22:27) Penicillins Allergy (Verified 04/06/18 22:27) Hives Tramadol Allergy (Verified 04/06/18 22:27) Home Medications: Ambulatory Orders Vit W/ Ferrous Fumara [] 1 tab PO DAILY 04/22/18 Sertraline HCl 50 mg PO DAILY 04/22/18 Clindamycin HCl 300 mg PO QID #24 cap 10/26/18 Ketorolac Tromethamine [Toradol Tabs] 10 mg PO QID PRN #16 tab 10/26/18 Review of Systems - Review of Systems Constitutional: States: no symptoms reported EENTM: States: no symptoms reported Respiratory: States: no symptoms reported Cardiology: States: no symptoms reported Gastrointestinal/Abdominal: States: no symptoms reported Genitourinary: States: no symptoms reported Musculoskeletal: States: no symptoms reported Skin: States: no symptoms reported Neurological: States: no symptoms reported Endocrine: States: no symptoms reported Hematologic/Lymphatic: States: no symptoms reported Past Medical History (General) - Patient Medical History Hx Seizures: No Hx Stroke: No Hx Dementia: No Hx Asthma: Yes Hx of COPD: No Hx Cardiac Disorders: No Hx Congestive Heart Failure: No Hx Pacemaker: No Hx Hypertension: No Hx Thyroid Disease: No Hx Diabetes: No Hx Gastroesophageal Reflux: No Hx Renal Disease: No Hx Cancer: No Hx of HIV: No Hx Hepatitis C: No Hx MRSA: No - Vaccination History Hx Tetanus, Diphtheria Vaccination: Yes Hx Influenza Vaccination: Yes Hx Pneumococcal Vaccination: No - Social History Hx Tobacco Use: Yes Hx Chewing Tobacco Use: No Hx Alcohol Use: No Hx Substance Use: Yes Hx Substance Use Treatment: Yes Hx Depression: Yes Hx Physical Abuse: No Hx Emotional Abuse: No Hx Suspected Abuse: No - Female History Hx Last Menstrual Period: 08/23/17 Patient : Yes Expected Date of Delivery:: 06/16/18 Family Medical History - Family History Father Living Status: Still Living Hx Family Hypertension: Yes - multiple family members Hx Family Diabetes: Yes - multiple family members Hx Family Cancer: Yes - colon cancer Mother Family History: No Known Living Status: Still Living Hx Family Hypertension: Yes Physical Exam - Physical Exam General Appearance: Alert Eye Exam: bilateral normal Ears, Nose, Throat: other - poor dentition. painful tooth, right 2nd maxillary molar, is TTP. No exudates. Right buccal membrane is TTP. Right TM is clear. No LAD Neck: non-tender, full range of motion, supple Respiratory: lungs clear, normal breath sounds Cardiovascular/Chest: regular rate, rhythm, no edema Gastrointestinal/Abdominal: normal bowel sounds, non tender, soft Progress - Progress Progress: 10/26/18 23:47 Toradol 30 mg IM x one and Clindamycin 300 mg po x one given in the E.D. RX for Clindamycin and Toradol given. Patient instructed to follow up with her dentist in one week as scheduled. Care instructions given. E.R. warnings given. Questions were elicited and answered. Patient voiced understanding and agreement with the plan. Departure - Departure Clinical Impression: Toothache Disposition: Discharge to Home or Self Care Condition: Good Departure Forms: ED Discharge - Pt. Copy, Patient Portal Self Enrollment Instructions: DI for Mouth Pain Diet: other - as per your dentist Activity: increase activity as tolerated Referrals: Emigdio Gongora MD [Primary Care Provider] - 1-2 Weeks Prescriptions: Clindamycin HCl 300 mg PO QID #24 cap Ketorolac Tromethamine [Toradol Tabs] 10 mg PO QID PRN #16 tab PRN Reason: Pain Home Medications: Ambulatory Orders Vit W/ Ferrous Fumara [] 1 tab PO DAILY 04/22/18 Sertraline HCl 50 mg PO DAILY 04/22/18 Clindamycin HCl 300 mg PO QID #24 cap 10/26/18 Ketorolac Tromethamine [Toradol Tabs] 10 mg PO QID PRN #16 tab 10/26/18 Additional Instructions: Take medications as prescribed. Only take the ketorolac if needed. See your dentist in one week as scheduled.
[2018-10-27 00:01] VITALS: BP 143/94; TEMP 98.2
== END 2018-10-27 | disposition home or self-care (01) ==
LOC: ER 22:45
DX: K08.89 Other specified disorders of teeth and supporting structures (principal); F32.9 Major depressive disorder, single episode, unspecified; Z87.891 Personal history of nicotine dependence; J45.909 Unspecified asthma, uncomplicated; Z88.8 Allergy status to other drugs, medicaments and biological substances; Z88.0 Allergy status to penicillin; Z88.5 Allergy status to narcotic agent
CPT/HCPCS: 81025; J1885

== ENCOUNTER 2018-11-09 09:14 | Emergency (ER) | payer SELFPAY ==
[2018-11-09 09:40] VITALS: TEMP 98
--- NOTE | 2018-11-09 10:09 | ED.PDOC ---
History of Present Illness - General Chief Complaint: GI Problem Stated Complaint: n/v/d Time Seen by Provider: 11/09/18 09:42 Source: patient Exam Limitations: no limitations - History of Present Illness Initial Comments: N/V TODAY. HAS NOT MISSED HER PERIOD. HER 3 MO HAS SIMILAR SX. Timing/Duration: intermittent Severity: moderate Improving Factors: nothing Worsening Factors: nothing Associated Symptoms: loss of appetite, nausea/vomiting Allergies/Adverse Reactions: Allergies Amoxicillin Allergy (Intermediate, Verified 04/06/18 22:27) Hives Ethanol [From Robitussin] Allergy (Verified 04/06/18 22:27) vomits Guaifenesin [From Robitussin] Allergy (Verified 04/06/18 22:27) Penicillins Allergy (Verified 04/06/18 22:27) Hives Tramadol Allergy (Verified 04/06/18 22:27) Home Medications: Ambulatory Orders Sertraline HCl 50 mg PO DAILY 04/22/18 Ondansetron Odt [Zofran ODT] 8 mg SL TID PRN #15 tab 11/09/18 Review of Systems - Review of Systems Constitutional: Denies: chills, fever EENTM: Denies: nose pain, throat pain Respiratory: Denies: cough, short of breath Cardiology: States: no symptoms reported Gastrointestinal/Abdominal: States: nausea, vomiting. Denies: abdominal pain Genitourinary: Denies: dysuria, frequency Musculoskeletal: States: no symptoms reported Skin: States: no symptoms reported Neurological: States: no symptoms reported Endocrine: States: no symptoms reported Hematologic/Lymphatic: States: no symptoms reported All other Systems: Reviewed and Negative Past Medical History (General) - Patient Medical History Hx Seizures: No Hx Stroke: No Hx Dementia: No Hx Asthma: Yes Hx of COPD: No Hx Cardiac Disorders: No Hx Congestive Heart Failure: No Hx Pacemaker: No Hx Hypertension: No Hx Thyroid Disease: No Hx Diabetes: No Hx Gastroesophageal Reflux: No Hx Renal Disease: No Hx Cancer: No Hx of HIV: No Hx Hepatitis C: No Hx MRSA: No Surgical History: no surgical history - Vaccination History Hx Tetanus, Diphtheria Vaccination: Yes Hx Influenza Vaccination: Yes Hx Pneumococcal Vaccination: No - Social History Hx Tobacco Use: Yes Hx Chewing Tobacco Use: No Hx Alcohol Use: No Hx Substance Use: Yes Hx Substance Use Treatment: Yes Hx Depression: Yes Hx Physical Abuse: No Hx Emotional Abuse: No Hx Suspected Abuse: No - Female History Patient is a Female of Child Bearing Age (10 -59 yrs old): Yes Hx Last Menstrual Period: 08/23/17 Patient : Yes Expected Date of Delivery:: 06/16/18 Family Medical History - Family History Father Living Status: Still Living Hx Family Hypertension: Yes - multiple family members Hx Family Diabetes: Yes - multiple family members Hx Family Cancer: Yes - colon cancer Mother Family History: No Known Living Status: Still Living Hx Family Hypertension: Yes Physical Exam - Physical Exam General Appearance: Alert, Well Nourished Eye Exam: bilateral normal Ears, Nose, Throat: hearing grossly normal, normal ENT inspection Neck: non-tender, full range of motion Respiratory: chest non-tender, lungs clear Cardiovascular/Chest: normal peripheral pulses, regular rate, rhythm Peripheral Pulses: radial,right: 2+, radial,left: 2+ Gastrointestinal/Abdominal: normal bowel sounds, non tender, soft, no organomegaly, no pulsatile mass Back Exam: normal inspection, no CVA tenderness Extremity: normal range of motion, non-tender Neurologic: alert, normal mood/affect Skin Exam: normal color, warm/dry Lymphatic: no adenopathy Progress - Progress Progress: 11/09/18 10:10 VIRAL GASTROENTERITIS, SAME HER INFANT. ZOFRAN PRN. Departure - Departure Clinical Impression: Viral gastroenteritis Nausea & vomiting Qualifiers: Vomiting type: unspecified Vomiting Intractability: non-intractable Qualified Code(s): R11.2 - Nausea with vomiting, unspecified Disposition: Discharge to Home or Self Care Condition: Good Departure Forms: ED Discharge - Pt. Copy, Patient Portal Self Enrollment Instructions: Viral Gastroenteritis, Adult (DC) Diet: bland diet Activity: increase activity as tolerated Referrals: Emigdio Gongora MD [Primary Care Provider] - 1-2 Weeks Prescriptions: Ondansetron Odt [Zofran ODT] 8 mg SL TID PRN #15 tab PRN Reason: Nausea Home Medications: Ambulatory Orders Sertraline HCl 50 mg PO DAILY 04/22/18 Ondansetron Odt [Zofran ODT] 8 mg SL TID PRN #15 tab 11/09/18 Additional Instructions: Get plenty of rest and drink plenty of fluids.
[2018-11-09 10:44] VITALS: BP 110/71; O2SAT 97
== END 2018-11-09 10:37 | disposition home or self-care (01) ==
LOC: ER 09:14
DX: A08.4 Viral intestinal infection, unspecified (principal); F32.9 Major depressive disorder, single episode, unspecified; J45.909 Unspecified asthma, uncomplicated; Z87.891 Personal history of nicotine dependence; Z88.1 Allergy status to other antibiotic agents; Z88.8 Allergy status to other drugs, medicaments and biological substances; Z88.0 Allergy status to penicillin; Z88.5 Allergy status to narcotic agent

== ENCOUNTER 2018-11-20 12:30 | Emergency (ER) | payer SELFPAY ==
[2018-11-20 12:49] VITALS: O2SAT 98
--- NOTE | 2018-11-20 13:29 | RAD ---
EXAM DESCRIPTION: Abdomen Flat Upright CLINICAL HISTORY: 23 years Female, abd and back pain on right COMPARISON: CT abdomen and pelvis 10/11/2017. FINDINGS/IMPRESSION: Frontal views of the abdomen was obtained. A moderate stool burden is present within the cecum, colon, and rectum suggestive of constipation. The bowel gas pattern is nonobstructive. No free intra-abdominal air is seen. No acute osseous abnormality. Electronically signed by: Asher Arevalo DO 11/20/2018 1:28 PM CDT
[2018-11-20] MEDS ORDERED: MAGNESIUM HYDROXIDE 30 ML UD PO ONE (13:37)
[2018-11-20] MEDS ORDERED: KETOROLAC TROMETHAMINE INJ 30 MG/ML VIAL IM ONE (13:38)
--- NOTE | 2018-11-20 13:43 | ED.PDOC ---
History of Present Illness - General Chief Complaint: Abdominal Pain Stated Complaint: RLQ pain radiating to right flank Time Seen by Provider: 11/20/18 12:31 Source: patient Exam Limitations: no limitations - History of Present Illness Initial Comments: The patient's 23-year-old female presenting to the emergency room secondary to pain starting last night. Pain is deep and achy with some cramping. It goes from her right back down to her right mid abdomen. There is no pain over the liver. There is no pain over the right lower quadrant. No fever. No nausea or vomiting though she did have some stomach upset last week. She does report some constipation issues. There is no rebound or peritoneal signs. No urinary symptoms. Timing/Duration: other - less than a day Severity: moderate Improving Factors: nothing Worsening Factors: nothing Associated Symptoms: malaise Allergies/Adverse Reactions: Allergies Amoxicillin Allergy (Intermediate, Verified 04/06/18 22:27) Hives Ethanol [From Robitussin] Allergy (Verified 04/06/18 22:27) vomits Guaifenesin [From Robitussin] Allergy (Verified 04/06/18 22:27) Penicillins Allergy (Verified 04/06/18 22:27) Hives Tramadol Allergy (Verified 04/06/18 22:27) Home Medications: Ambulatory Orders Sertraline HCl 50 mg PO DAILY 04/22/18 Review of Systems - Review of Systems Constitutional: States: no symptoms reported EENTM: States: no symptoms reported Respiratory: States: no symptoms reported Cardiology: States: no symptoms reported Gastrointestinal/Abdominal: States: abdominal pain, constipation. Denies: diarrhea, nausea, vomiting Genitourinary: States: no symptoms reported Musculoskeletal: States: back pain Skin: States: no symptoms reported Neurological: States: no symptoms reported Endocrine: States: no symptoms reported All other Systems: No Change from Baseline Past Medical History (General) - Patient Medical History Hx Seizures: No Hx Stroke: No Hx Dementia: No Hx Asthma: Yes Hx of COPD: No Hx Cardiac Disorders: No Hx Congestive Heart Failure: No Hx Pacemaker: No Hx Hypertension: No Hx Thyroid Disease: No Hx Diabetes: No Hx Gastroesophageal Reflux: No Hx Renal Disease: No Hx Cancer: No Hx of HIV: No Hx Hepatitis C: No Hx MRSA: No Surgical History: appendectomy - Vaccination History Hx Tetanus, Diphtheria Vaccination: Yes Hx Influenza Vaccination: Yes Hx Pneumococcal Vaccination: No - Social History Hx Tobacco Use: Yes Hx Chewing Tobacco Use: No Hx Alcohol Use: No Hx Substance Use: Yes Hx Substance Use Treatment: Yes Hx Depression: Yes Hx Physical Abuse: No Hx Emotional Abuse: No Hx Suspected Abuse: No - Female History Patient is a Female of Child Bearing Age (10 -59 yrs old): Yes Hx Last Menstrual Period: 08/23/17 Patient : Yes Expected Date of Delivery:: 06/16/18 Family Medical History - Family History Father Living Status: Still Living Hx Family Hypertension: Yes - multiple family members Hx Family Diabetes: Yes - multiple family members Hx Family Cancer: Yes - colon cancer Mother Family History: No Known Living Status: Still Living Hx Family Hypertension: Yes Physical Exam - Physical Exam General Appearance: Alert, No apparent distress Eye Exam: bilateral normal Ears, Nose, Throat: hearing grossly normal, normal ENT inspection, normal pharynx Neck: full range of motion, supple Respiratory: lungs clear, normal breath sounds, no respiratory distress, no accessory muscle use Cardiovascular/Chest: normal peripheral pulses, regular rate, rhythm, no edema Peripheral Pulses: radial,right: 2+, radial,left: 2+, dorsalis pedis,right: 2+, dorsalis pedis,left: 2+ Gastrointestinal/Abdominal: soft, other - no rebound or peritoneal signs. No definite palpable mass. The patient is morbidly obese. She has discomfort palpation over theright lateral and mid abdomen. No pain in the right lower quadrant or over the liver. Rectal Exam: deferred Back Exam: other - she does have some vague right sided back pain but no point tenderness. 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 Urinalysis is clear. The patient needs to increase her fluid intake and ambulate a lot today in order to help stimulate the bowel. She is being given a dose of milk of magnesia here and she can drink some coffee if she wants to as well. she needs to increase the fiber in her diet in the form of fruits and vegetables. She can also take MiraLAX once daily [id number] for the next 3 or 4 days and twice a week after that. ER warnings were given for any worsening. Certainly if the patient worsens rather than improves with these measures then additional workup would be warranted. - Results/Orders Results/Orders: Laboratory Results - last 24 hr 11/20/18 11/20/18 12:55 12:55 Urine Color Yellow Urine Appearance Clear Urine pH 6.0 Ur Specific [place] 1.010 Urine Protein Negative Urine Glucose (UA) Negative Urine Ketones Negative Urine Blood Negative Urine Nitrite Negative Urine Bilirubin Negative Urine Urobilinogen 0.2 Ur Leukocyte Esterase Negative Urine RBC 0 Urine WBC 0 Ur Epithelial Cells 5-10 Urine Bacteria Rare Urine HCG, Qual Negative two-view abdomen shows significant constipation. No obstruction or perforation. Departure - Departure Clinical Impression: Constipation Qualifiers: Constipation type: unspecified constipation type Qualified Code(s): K59.00 - Constipation, unspecified Disposition: Discharge to Home or Self Care Condition: Fair Departure Forms: ED Discharge - Pt. Copy, Patient Portal Self Enrollment Instructions: Constipation, Adult (DC), High Fiber Diet Diet: other - High-fiber diet Activity: increase activity as tolerated Referrals: Emigdio Gongora MD [Primary Care Provider] - 1-2 Weeks Home Medications: Ambulatory Orders Sertraline HCl 50 mg PO DAILY 04/22/18 Additional Instructions: the patient's 23-year-old female presenting with right-sided back and abdominal pain that I believe is due to constipation. Urinalysis is clear. The patient needs to increase her fluid intake and ambulate a lot today in order to help stimulate the bowel. She is being given a dose of milk of magnesia here and she can drink some coffee if she wants to as well. she needs to increase the fiber in her diet in the form of fruits and vegetables. She can also take MiraLAX once daily [id number] for the next 3 or 4 days and twice a week after that. ER warnings were given for any worsening. Certainly if the patient worsens rather than improves with these measures then additional workup would be warranted.
[2018-11-20 14:23] VITALS: BP 117/94; TEMP 97.9
== END 2018-11-20 14:15 | disposition home or self-care (01) ==
LOC: ER 12:30
DX: K59.00 Constipation, unspecified (principal); E66.01 Morbid (severe) obesity due to excess calories; F32.9 Major depressive disorder, single episode, unspecified; J45.909 Unspecified asthma, uncomplicated; Z90.49 Acquired absence of other specified parts of digestive tract; Z87.891 Personal history of nicotine dependence; Z79.899 Other long term (current) drug therapy; Z88.1 Allergy status to other antibiotic agents; Z88.8 Allergy status to other drugs, medicaments and biological substances; Z88.0 Allergy status to penicillin; Z88.5 Allergy status to narcotic agent; Z68.42 Body mass index [BMI] 45.0-49.9, adult
CPT/HCPCS: 74019; 81001; 81025; J1885

== ENCOUNTER 2018-12-06 16:37 | Emergency (ER) | payer SELFPAY ==
[2018-12-06 17:11] VITALS: TEMP 98.7; O2SAT 98
[2018-12-06] MEDS ORDERED: IBUPROFEN 200 MG TAB PO ONE (17:51)
[2018-12-06] MEDS ORDERED: ACETAMINOPHEN 500 MG TAB PO ONE (17:51)
--- NOTE | 2018-12-06 20:05 | CT ---
EXAM DESCRIPTION: Abdomen t/Pelvis w/o Contrast CLINICAL HISTORY: RLQ pain. COMPARISON: CT abdomen pelvis with contrast October 11, 2017. TECHNIQUE: Sequential axial images were obtained with a multi-detector helical CT without administration of intravenous iodinated contrast material. Oral contrast was not given. Automatic exposure control (AEC), mA and/or kV adjustment by patient size, and/or iterative reconstructive technique was used, per departmental dose optimization program, during the performance of the CT examination. The lack of contrast limits detailed evaluation of the abdominal organs. FINDINGS: The visualized lung bases are clear. A nonspecific subpleural linear densities noted in the right middle lobe and is unchanged. It measures 2-3 mm in size. The non-contrast enhanced images of the liver is unremarkable . The spleen, pancreas and adrenals are unremarkable. The gallbladder is unremarkable. The kidneys are normal in appearance. There are no renal calculi. No evidence of ureteral calculi are seen. The stomach is unremarkable. The loops of small bowel are unremarkable. The appendix is surgically absent. The colon appears unremarkable. The aorta and inferior vena cava are unremarkable. The bladder is unremarkable. Reproductive organs are unremarkable. There is no pelvic or abdominal lymphadenopathy. No ascites. No free air. The inguinal regions are unremarkable. The visualized bony structures are unremarkable. IMPRESSION: Unremarkable non-contrast abdominal and pelvis CT. Electronically signed by: Ana Luisa Marley MD 12/06/2018 8:03 PM CDT
--- NOTE | 2018-12-06 20:27 | ED.PDOC ---
History of Present Illness - General Chief Complaint: Abdominal Pain Stated Complaint: Abdominal discomfort Time Seen by Provider: 12/06/18 17:34 - History of Present Illness Initial Comments: Patient is a 23 year old F who presents to the ED c/o RLQ abd pain. Reports pain began two days ago. It is constant, non-radiating, 8/10 in severity. no aggravating or alleviating factors. Denies n/v/d. Says pain is similar to when she was diagnosed with appendicitis. Review of Systems - Review of Systems Constitutional: States: no symptoms reported EENTM: States: no symptoms reported Respiratory: States: no symptoms reported Cardiology: States: no symptoms reported Gastrointestinal/Abdominal: States: abdominal pain. Denies: nausea Genitourinary: States: no symptoms reported Musculoskeletal: States: no symptoms reported Skin: States: no symptoms reported Neurological: States: no symptoms reported Endocrine: States: no symptoms reported All other Systems: Reviewed and Negative Past Medical History (General) - Patient Medical History Hx Seizures: No Hx Stroke: No Hx Dementia: No Hx Asthma: Yes Hx of COPD: No Hx Cardiac Disorders: No Hx Congestive Heart Failure: No Hx Pacemaker: No Hx Hypertension: No Hx Thyroid Disease: No Hx Diabetes: No Hx Gastroesophageal Reflux: No Hx Renal Disease: No Hx Cancer: No Hx of HIV: No Hx Hepatitis C: No Hx MRSA: No Surgical History: no surgical history - Vaccination History Hx Tetanus, Diphtheria Vaccination: No Hx Influenza Vaccination: Yes - 2018 Hx Pneumococcal Vaccination: No - Social History Hx Tobacco Use: Yes Hx Chewing Tobacco Use: No Hx Alcohol Use: No Hx Substance Use: Yes Hx Substance Use Treatment: Yes Hx Depression: Yes Hx Physical Abuse: No Hx Emotional Abuse: No Hx Suspected Abuse: No - Female History Patient is a Female of Child Bearing Age (10 -59 yrs old): Yes Hx Last Menstrual Period: 08/23/17 Patient : No Expected Date of Delivery:: 06/16/18 Family Medical History - Family History Father Living Status: Still Living Hx Family Hypertension: Yes - multiple family members Hx Family Diabetes: Yes - multiple family members Hx Family Cancer: Yes - colon cancer Mother Family History: No Known Living Status: Still Living Hx Family Hypertension: Yes Physical Exam - Physical Exam General Appearance: Alert, Comfortable, Other - morbidly obese Eyes, Ears, Nose, Throat Exam: PERRL/EOMI, normal ENT inspection Neck: full range of motion, supple Respiratory: lungs clear, normal breath sounds Cardiovascular/Chest: regular rate, rhythm, no edema Peripheral Pulses: 2+ Gastrointestinal/Abdominal: soft, other - Right lower abdominal tenderness Back Exam: normal inspection, no CVA tenderness Extremity: non-tender, normal inspection Neurologic: no motor/sensory deficits, alert, normal mood/affect Skin Exam: normal color, warm/dry Progress - Progress Progress: 12/06/18 20:28 MDM Well appearing patient w/ h/o frequent presentations to the ED for various complaints here w/ RLQ pain. Has had previous appendectomy. Plan for abd labs, treat pain, reassess need for imaging. Diff Dx: , uti, chronic pain Beny Benítez MD #[id number] - Results/Orders Results/Orders: Laboratory Results - last 24 hr 12/06/18 12/06/18 12/06/18 18:00 18:00 18:50 WBC 14.2 H RBC 4.68 Hgb 13.3 Hct 39.2 MCV 83.7 MCH 28.4 MCHC 33.9 RDW 14.5 Plt Count 287 MPV 9.0 Absolute Neuts (auto) 9.90 H Absolute Lymphs (auto) 3.00 Absolute Monos (auto) 0.90 H Absolute Eos (auto) 0.30 Absolute Basos (auto) 0.10 Neutrophils % 69.7 Lymphocytes % 21.4 Monocytes % 6.4 Eosinophils % 1.8 Basophils % 0.7 Sodium 139 Potassium 3.8 Chloride 106 Carbon Dioxide 24 Anion Gap 12.8 BUN 12 Creatinine 0.97 BUN/Creatinine Ratio 12.4 Random Glucose 89 Serum Osmolality 276.8 Calcium 8.7 Total Bilirubin 0.4 AST 31 ALT 30 Alkaline Phosphatase 79 Serum Total Protein 7.0 Albumin 3.7 Globulin 3.3 Albumin/Globulin Ratio 1.1 Urine Color Urine Appearance Urine pH Ur Specific [place] Urine Protein Urine Glucose (UA) Urine Ketones Urine Blood Urine Nitrite Urine Bilirubin Urine Urobilinogen Ur Leukocyte Esterase Urine RBC Urine WBC Ur Epithelial Cells Amorphous Sediment Urine Bacteria Urine Mucus Urine HCG, Qual Negative 12/06/18 18:50 WBC RBC Hgb Hct MCV MCH MCHC RDW Plt Count MPV Absolute Neuts (auto) Absolute Lymphs (auto) Absolute Monos (auto) Absolute Eos (auto) Absolute Basos (auto) Neutrophils % Lymphocytes % Monocytes % Eosinophils % Basophils % Sodium Potassium Chloride Carbon Dioxide Anion Gap BUN Creatinine BUN/Creatinine Ratio Random Glucose Serum Osmolality Calcium Total Bilirubin AST ALT Alkaline Phosphatase Serum Total Protein Albumin Globulin Albumin/Globulin Ratio Urine Color Yellow Urine Appearance Clear Urine pH 7.0 Ur Specific [place] 1.020 Urine Protein Negative Urine Glucose (UA) Negative Urine Ketones Trace Urine Blood Negative Urine Nitrite Negative Urine Bilirubin Negative Urine Urobilinogen 4.0 H Ur Leukocyte Esterase Negative Urine RBC 0 Urine WBC 0-1 Ur Epithelial Cells 3-5 Amorphous Sediment 1+ Urine Bacteria 2+ H Urine Mucus Moderate Urine HCG, Qual CT abd pelvis: no acute findings, per radiologist report. Departure - Departure Clinical Impression: Lower abdominal pain Disposition: Discharge to Home or Self Care Condition: Good Departure Forms: ED Discharge - Pt. Copy, Patient Portal Self Enrollment Referrals: Emigdio Gongora MD [Primary Care Provider] - 1-2 Weeks Prescriptions: Naproxen 500 mg PO BID PRN 10 Days #20 tab PRN Reason: Pain Home Medications: Ambulatory Orders Sertraline HCl 50 mg PO DAILY 04/22/18 Naproxen 500 mg PO BID PRN 10 Days #20 tab 12/06/18
[2018-12-06 20:37] VITALS: BP 130/80
== END 2018-12-06 20:39 | disposition home or self-care (01) ==
LOC: ER 16:37
DX: R10.31 Right lower quadrant pain (principal); J45.909 Unspecified asthma, uncomplicated; F32.9 Major depressive disorder, single episode, unspecified; Z90.49 Acquired absence of other specified parts of digestive tract; Z87.891 Personal history of nicotine dependence; Z79.899 Other long term (current) drug therapy

== ENCOUNTER 2019-01-22 23:10 | Emergency (ER) | payer SELFPAY ==
[2019-01-22 23:30] VITALS: BP 124/81; TEMP 97.6; O2SAT 99
[2019-01-22] MEDS ORDERED: ACETAMINOPHEN W/COD #3 TAB 1 EA TAB PO ONE (23:39)
[2019-01-22] MEDS ORDERED: CLINDAMYCIN HCL CAP 150 MG CAP PO ONE (23:39)
--- NOTE | 2019-01-22 23:39 | ED.PDOC ---
History of Present Illness - General Chief Complaint: Dental/Mouth Stated Complaint: tooth pain Time Seen by Provider: 01/22/19 23:32 Source: patient, RN notes reviewed, Vital Signs reviewed Exam Limitations: no limitations - History of Present Illness Initial Comments: this is a 23-year-old white female who presents to the emergency department with complaints of tooth pain. It is her second seventh visit this year for tooth pain. Patient last seen on 10/26/18 for similar incident. She states that was the last time that she was placed on antibiotics. He also states that she did see a dentist following that visit. She denies any fever or chills. She has not had any nausea or vomiting. She reports being allergic to amoxicillin and tramadol. Allergies/Adverse Reactions: Allergies Amoxicillin Allergy (Intermediate, Verified 01/22/19 23:43) Hives Ethanol [From Robitussin] Allergy (Verified 04/06/18 22:27) vomits Guaifenesin [From Robitussin] Allergy (Verified 04/06/18 22:27) Penicillins Allergy (Verified 04/06/18 22:27) Hives Tramadol Allergy (Verified 04/06/18 22:27) Home Medications: Ambulatory Orders Sertraline HCl 50 mg PO DAILY 04/22/18 Naproxen 500 mg PO BID PRN 10 Days #20 tab 12/06/18 Acetaminophen W/ Codeine [Tylenol W/ CODEINE #3] 1 ea PO Q6HR #20 01/22/19 Clindamycin HCl [Cleocin] 150 mg PO Q6HR #40 cap 01/22/19 Review of Systems - Review of Systems Constitutional: Denies: chills, fever EENTM: States: mouth pain. Denies: mouth swelling Respiratory: States: no symptoms reported Gastrointestinal/Abdominal: States: no symptoms reported Musculoskeletal: States: no symptoms reported Skin: States: no symptoms reported Hematologic/Lymphatic: States: no symptoms reported All other Systems: Reviewed and Negative Past Medical History (General) - Patient Medical History Hx Seizures: No Hx Stroke: No Hx Dementia: No Hx Asthma: Yes Hx of COPD: No Hx Cardiac Disorders: No Hx Congestive Heart Failure: No Hx Pacemaker: No Hx Hypertension: No Hx Thyroid Disease: No Hx Diabetes: No Hx Gastroesophageal Reflux: No Hx Renal Disease: No Hx Cancer: No Hx of HIV: No Hx Hepatitis C: No Hx MRSA: No - Vaccination History Hx Tetanus, Diphtheria Vaccination: No Hx Influenza Vaccination: Yes - 2018 Hx Pneumococcal Vaccination: No - Social History Hx Tobacco Use: Yes Hx Chewing Tobacco Use: No Hx Alcohol Use: No Hx Substance Use: Yes Hx Substance Use Treatment: Yes Hx Depression: Yes Hx Physical Abuse: No Hx Emotional Abuse: No Hx Suspected Abuse: No - Female History Hx Last Menstrual Period: 08/23/17 Patient : No Expected Date of Delivery:: 06/16/18 Family Medical History - Family History Father Living Status: Still Living Hx Family Hypertension: Yes - multiple family members Hx Family Diabetes: Yes - multiple family members Hx Family Cancer: Yes - colon cancer Mother Family History: No Known Living Status: Still Living Hx Family Hypertension: Yes Physical Exam - Physical Exam General Appearance: Alert, No apparent distress Eye Exam: bilateral normal Nasal Exam: normal inspection Throat Exam: dental tenderness, other - no evidence of maxillary swelling or jaw swelling. Widespread dental decay is noted. Neck: non-tender, full range of motion, supple, normal inspection Cardiovascular/Respiratory: regular rate, rhythm, no M/R/G, normal peripheral pulses, no JVD, normal breath sounds, no respiratory distress Neurologic: no motor/sensory deficits, alert, normal mood/affect, oriented x 3 Skin Exam: normal color, warm/dry Comments: patient is noted to have widespread dental decay. The right upper first molar is badly fractured and decayed. No evidence of discharge is noted. There is some mild gingival edema present as well. Progress - Progress Progress: 01/22/19 23:44 patient presents with numerous visits for dental problems. She has widespread dental decay and needs further treatment from a dentist. No obvious evidence of abscess formation. Patient does not have any facial swelling or erythema noted. We'll treat with antibiotics and pain medication. Departure - Departure Clinical Impression: Dental neglect, Chronic dental pain Time of Disposition: 23:46 Disposition: Discharge to Home or Self Care Condition: Good Departure Forms: ED Discharge - Pt. Copy, Patient Portal Self Enrollment Instructions: DI for Mouth Pain, DI for Dental Pain Referrals: Emigdio Gongora MD [Primary Care Provider] - 1-2 Weeks Rosalinda Walker DDS [Dentist] - 1-2 Weeks Prescriptions: Acetaminophen W/ Codeine [Tylenol W/ CODEINE #3] 1 ea PO Q6HR #20 Clindamycin HCl [Cleocin] 150 mg PO Q6HR #40 cap Home Medications: Ambulatory Orders Sertraline HCl 50 mg PO DAILY 04/22/18 Naproxen 500 mg PO BID PRN 10 Days #20 tab 12/06/18 Acetaminophen W/ Codeine [Tylenol W/ CODEINE #3] 1 ea PO Q6HR #20 01/22/19 Clindamycin HCl [Cleocin] 150 mg PO Q6HR #40 cap 01/22/19 Additional Instructions: I strongly encouraged her to follow up with a dentist. Take pain medication as necessary. Would recommend ibuprofen as well. Complete antibiotics. If worsening of symptoms or swelling of the face or jaw return to ED for further evaluation.
== END 2019-01-22 23:55 | disposition home or self-care (01) ==
LOC: ER 23:10
DX: K02.9 Dental caries, unspecified (principal); S02.5XXA Fracture of tooth (traumatic), initial encounter for closed fracture; R60.0 Localized edema; J45.909 Unspecified asthma, uncomplicated; F32.9 Major depressive disorder, single episode, unspecified; X58.XXXA Exposure to other specified factors, initial encounter; Y92.9 Unspecified place or not applicable; Z87.891 Personal history of nicotine dependence; Z88.1 Allergy status to other antibiotic agents; Z88.5 Allergy status to narcotic agent; Z88.8 Allergy status to other drugs, medicaments and biological substances; Z79.899 Other long term (current) drug therapy

== ENCOUNTER 2019-02-16 21:16 | Emergency (ER) | payer SELFPAY ==
[2019-02-16 21:25] VITALS: TEMP 97.5; O2SAT 97
[2019-02-16] MEDS ORDERED: IBUPROFEN 200 MG TAB PO ONE (21:36)
[2019-02-16] MEDS ORDERED: DEXAMETHASONE INJ 10 MG/ML VIAL PO ONE (21:37)
--- NOTE | 2019-02-16 21:42 | ED.PDOC ---
History of Present Illness - General Chief Complaint: General Stated Complaint: sore throat, body aches, nausea Time Seen by Provider: 02/16/19 21:35 Source: patient Exam Limitations: no limitations - History of Present Illness Initial Comments: 23 yo F with hx of asthma who presents for sore throat with associated lymph node enlargement and pain, myalgias, Tmax 100. +sick contacts for influenza and strep. Mild congestion. Denies cough, wheezing, SOB, CP, abd pain, n/v/d, urinary sx. Allergies/Adverse Reactions: Allergies Amoxicillin Allergy (Intermediate, Verified 01/22/19 23:43) Hives Ethanol [From Robitussin] Allergy (Verified 04/06/18 22:27) vomits Guaifenesin [From Robitussin] Allergy (Verified 04/06/18 22:27) Penicillins Allergy (Verified 04/06/18 22:27) Hives Tramadol Allergy (Verified 04/06/18 22:27) Home Medications: Ambulatory Orders Sertraline HCl 50 mg PO DAILY 04/22/18 Naproxen 500 mg PO BID PRN 10 Days #20 tab 12/06/18 Acetaminophen W/ Codeine [Tylenol W/ CODEINE #3] 1 ea PO Q6HR #20 01/22/19 Clindamycin HCl [Cleocin] 150 mg PO Q6HR #40 cap 01/22/19 Azithromycin 250 mg PO DAILY #6 tab 02/16/19 Review of Systems - Review of Systems Constitutional: States: other - Tmax 100. Denies: chills, fever EENTM: States: nose congestion, throat pain, other - lymph node swelling. Denies: eye pain, ear pain, ear discharge Respiratory: Denies: cough, short of breath, wheezing Cardiology: Denies: chest pain, palpitations Gastrointestinal/Abdominal: Denies: abdominal pain, diarrhea, nausea, vomiting Genitourinary: Denies: dysuria, frequency, hematuria Musculoskeletal: States: muscle pain. Denies: neck pain Skin: Denies: lesions, rash Neurological: Denies: headache, numbness, weakness Past Medical History (General) - Patient Medical History Hx Seizures: No Hx Stroke: No Hx Dementia: No Hx Asthma: Yes Hx of COPD: No Hx Cardiac Disorders: No Hx Congestive Heart Failure: No Hx Pacemaker: No Hx Hypertension: No Hx Thyroid Disease: No Hx Diabetes: No Hx Gastroesophageal Reflux: No Hx Renal Disease: No Hx Cancer: No Hx of HIV: No Hx Hepatitis C: No Hx MRSA: No Surgical History: appendectomy - Vaccination History Hx Tetanus, Diphtheria Vaccination: No Hx Influenza Vaccination: Yes - 2018 Hx Pneumococcal Vaccination: No - Social History Hx Tobacco Use: Yes Hx Chewing Tobacco Use: No Hx Alcohol Use: No Hx Substance Use: Yes Hx Substance Use Treatment: Yes Hx Depression: Yes Hx Physical Abuse: No Hx Emotional Abuse: No Hx Suspected Abuse: No - Female History Hx Last Menstrual Period: 08/23/17 Patient : No Expected Date of Delivery:: 06/16/18 Family Medical History - Family History Father Living Status: Still Living Hx Family Hypertension: Yes - multiple family members Hx Family Diabetes: Yes - multiple family members Hx Family Cancer: Yes - colon cancer Mother Family History: No Known Living Status: Still Living Hx Family Hypertension: Yes Physical Exam - Physical Exam General Appearance: Alert, Comfortable, No apparent distress, Well Developed, Well Nourished Eye Exam: bilateral normal Ears, Nose, Throat: pharyngeal erythema, tonsillar exudate, tonsillar swelling, other - TM without erythema, not bulding. Neck: non-tender, full range of motion, supple, other - Mild cervical lymphadenopathy Respiratory: lungs clear, normal breath sounds, no respiratory distress, no accessory muscle use Cardiovascular/Chest: normal peripheral pulses, regular rate, rhythm, no edema, no gallop, no JVD, no murmur Peripheral Pulses: radial,right: 2+, radial,left: 2+ Gastrointestinal/Abdominal: non tender, soft Extremity: normal range of motion Neurologic: no motor/sensory deficits, alert, normal mood/affect Progress - Progress Progress: 02/16/19 22:13 I have explained and reviewed all results with the pt. I explained that emergent conditions may arise and to return to the ER for new, worsening, or any persistent conditions. I've explained the importance of f/u for recheck. All questions and concerns addressed at this time. Pt understands and agrees with plan. Pt well appearing, NAD, is stable for discharge. Itzel Hankins MD Emergency Medicine Physician Billing Number [id number] - Results/Orders Results/Orders: Microbiology 02/16/19 21:35 Influenza Types A & B (PCR) - Final Nose neg Throat culture: pending Vital Signs - 24 hr 02/16/19 02/16/19 21:24 22:23 Temperature 97.5 F L Pulse Rate [ 111 H 98 H Left Apical] Respiratory 18 14 Rate Blood Pressure 142/90 136/84 [Left Arm] O2 Sat by Pulse 97 97 Oximetry Departure - Departure Clinical Impression: Strep pharyngitis Time of Disposition: 22:10 Disposition: Discharge to Home or Self Care Health Concerns: condition: stable Departure Forms: ED Discharge - Pt. Copy, Patient Portal Self Enrollment Referrals: Emigdio Gongora MD [Primary Care Provider] - 1-5 Days Prescriptions: Azithromycin 250 mg PO DAILY #6 tab Home Medications: Ambulatory Orders Sertraline HCl 50 mg PO DAILY 04/22/18 Naproxen 500 mg PO BID PRN 10 Days #20 tab 12/06/18 Acetaminophen W/ Codeine [Tylenol W/ CODEINE #3] 1 ea PO Q6HR #20 01/22/19 Clindamycin HCl [Cleocin] 150 mg PO Q6HR #40 cap 01/22/19 Azithromycin 250 mg PO DAILY #6 tab 02/16/19 Additional Instructions: Follow up: [facility] As needed, if symptoms worsen
[2019-02-16 22:23] VITALS: BP 136/84
== END 2019-02-16 22:20 | disposition home or self-care (01) ==
LOC: ER 21:16
DX: J02.0 Streptococcal pharyngitis (principal); J45.909 Unspecified asthma, uncomplicated; F32.9 Major depressive disorder, single episode, unspecified; Z87.891 Personal history of nicotine dependence; Z79.899 Other long term (current) drug therapy; Z88.1 Allergy status to other antibiotic agents; Z88.8 Allergy status to other drugs, medicaments and biological substances; Z88.0 Allergy status to penicillin; Z88.5 Allergy status to narcotic agent
CPT/HCPCS: 87070; 87502; J1100

== ENCOUNTER 2019-02-17 21:25 | Emergency (ER) | payer SELFPAY ==
[2019-02-17 21:46] VITALS: TEMP 97.5; O2SAT 97
--- NOTE | 2019-02-17 21:54 | ED.PDOC ---
History of Present Illness - General Chief Complaint: Fever Stated Complaint: fever, sore throat, cough Time Seen by Provider: 02/17/19 21:26 - History of Present Illness Initial Comments: 23 F presents to ED c/o persistent subjective fever of 99 degrees with persistent sore throat, nasal congestion with rhinorrhea. She informs that she has had mild nausea without vomiting. She states her work has not let her return because a temperature of 99 is a fever. She denies cough, CP, SOB, v/d, and/or acute changes in bowels/urination. Pt is otherwise healthy with no other signs, sx's, or complaints. Review of Systems - Review of Systems Constitutional: States: chills, fever EENTM: States: nose congestion, throat pain. Denies: ear pain, nose pain, mouth pain Respiratory: Denies: cough, short of breath Cardiology: Denies: chest pain Gastrointestinal/Abdominal: States: nausea. Denies: abdominal pain, constipation, diarrhea, vomiting Genitourinary: Denies: dysuria, frequency Musculoskeletal: Denies: back pain, joint pain Skin: Denies: change in color, rash Neurological: Denies: headache Past Medical History (General) - Patient Medical History Hx Seizures: No Hx Stroke: No Hx Dementia: No Hx Asthma: Yes Hx of COPD: No Hx Cardiac Disorders: No Hx Congestive Heart Failure: No Hx Pacemaker: No Hx Hypertension: No Hx Thyroid Disease: No Hx Diabetes: No Hx Gastroesophageal Reflux: No Hx Renal Disease: No Hx Cancer: No Hx of HIV: No Hx Hepatitis C: No Hx MRSA: No Surgical History: appendectomy - Vaccination History Hx Tetanus, Diphtheria Vaccination: No Hx Influenza Vaccination: Yes - 2018 Hx Pneumococcal Vaccination: No - Social History Hx Tobacco Use: Yes Hx Chewing Tobacco Use: No Hx Alcohol Use: No Hx Substance Use: Yes Hx Substance Use Treatment: Yes Hx Depression: Yes Hx Physical Abuse: No Hx Emotional Abuse: No Hx Suspected Abuse: No - Female History Patient is a Female of Child Bearing Age (10 -59 yrs old): No Hx Last Menstrual Period: 08/23/17 Patient : No Expected Date of Delivery:: 06/16/18 Family Medical History - Family History Father Living Status: Still Living Hx Family Hypertension: Yes - multiple family members Hx Family Diabetes: Yes - multiple family members Hx Family Cancer: Yes - colon cancer Mother Family History: No Known Living Status: Still Living Hx Family Hypertension: Yes Physical Exam - Physical Exam General Appearance: Agitated, Comfortable, No apparent distress, Well Hydrated, Other - Obese. Poor hygiene. Eye Exam: bilateral normal, bilateral other - PERRLA ENT Exam: TMs normal, other - mild posterior oropharynx erythema, tonsils 1+ without exudates, uvula midline without deviation or soft palat inferior deviation, no palatal petechia, no lesions to peritonsillar arch Neck: non-tender, full range of motion, supple, normal inspection, other - trace bilateral anterior cervical lymphadenopathy with minimal discomfort on palpation of right Respiratory: lungs clear, normal breath sounds, no respiratory distress, no accessory muscle use Cardiovascular/Chest: regular rate, rhythm, no edema, no JVD, no murmur Gastrointestinal/Abdominal: normal bowel sounds, soft Neurologic: alert, oriented x 3 Skin Exam: normal color, warm/dry, other - no rash Lymphatic: other - trace bilateral anterior cervical lymphadenopathy with minimal discomfort on palpation of right Progress - Results/Orders Results/Orders: Laboratory Results - last 24 hr 02/17/19 21:44 Group A Strep Rapid Positive Departure - Departure Clinical Impression: Strep pharyngitis Time of Disposition: 22:00 Disposition: Discharge to Home or Self Care Condition: Fair Departure Forms: ED Discharge - Pt. Copy, Patient Portal Self Enrollment, Work Release Form Instructions: DI for Fever (Symptom) -- Adult, Sore Throat in Adults, Strep Throat (DC) Referrals: Emigdio Gongora MD [Primary Care Provider] - 1-2 Weeks Prescriptions: Azithromycin 500 mg PO DAILY #5 tab Home Medications: Ambulatory Orders Sertraline HCl 50 mg PO DAILY 04/22/18 Naproxen 500 mg PO BID PRN 10 Days #20 tab 12/06/18 Acetaminophen W/ Codeine [Tylenol W/ CODEINE #3] 1 ea PO Q6HR #20 01/22/19 Clindamycin HCl [Cleocin] 150 mg PO Q6HR #40 cap 01/22/19 Azithromycin 250 mg PO DAILY #6 tab 02/16/19 Azithromycin 500 mg PO DAILY #5 tab 02/17/19
[2019-02-17 22:09] VITALS: BP 129/77
== END 2019-02-17 22:07 | disposition home or self-care (01) ==
LOC: ER 21:25
DX: J02.0 Streptococcal pharyngitis (principal); J45.909 Unspecified asthma, uncomplicated; F32.9 Major depressive disorder, single episode, unspecified; Z87.891 Personal history of nicotine dependence

== ENCOUNTER 2019-04-03 23:23 | Emergency (ER) | payer SELFPAY ==
[2019-04-03 23:42] VITALS: TEMP 96.9; O2SAT 98
[2019-04-03] MEDS ORDERED: CLINDAMYCIN HCL CAP 150 MG CAP PO ONE (23:47)
[2019-04-03] MEDS ORDERED: KETOROLAC TROMETHAMINE INJ 30 MG/ML VIAL IM ONE (23:48)
--- NOTE | 2019-04-03 23:51 | ED.PDOC ---
History of Present Illness - General Chief Complaint: Dental/Mouth Stated Complaint: upper left toothache Time Seen by Provider: 04/03/19 23:46 Source: patient, RN notes reviewed, Vital Signs reviewed Exam Limitations: no limitations Additional Information: 23 year present with dental pain since yesterday, no fever, no chills, no change in voice no trauma - History of Present Illness Timing/Duration: yesterday EENT Location: dental Improving Factors: nothing Worsening Factors: nothing Associated Symptoms: denies symptoms Allergies/Adverse Reactions: Allergies Amoxicillin Allergy (Intermediate, Verified 04/03/19 23:42) Hives Ethanol [From Robitussin] Allergy (Verified 04/06/18 22:27) vomits Guaifenesin [From Robitussin] Allergy (Verified 04/06/18 22:27) Penicillins Allergy (Verified 04/06/18 22:27) Hives Tramadol Allergy (Verified 04/06/18 22:27) Home Medications: Ambulatory Orders Sertraline HCl 50 mg PO DAILY 04/22/18 Acetaminophen W/ Codeine [Tylenol W/ CODEINE #3] 1 ea PO Q6HRS #20 04/03/19 Clindamycin HCl [Cleocin] 300 mg PO Q6H #28 capsule 04/03/19 Review of Systems - Review of Systems Constitutional: Denies: chills, diaphoresis, fever, malaise, weakness EENTM: Denies: eye pain, blurred vision, tearing, double vision, ear pain, ear discharge, nose pain, nose congestion, throat pain, throat swelling, mouth pain, mouth swelling Respiratory: Denies: cough, orthopnea, short of breath Cardiology: Denies: chest pain, edema, palpitations, syncope Gastrointestinal/Abdominal: Denies: abdominal pain, diarrhea, nausea, vomiting Genitourinary: Denies: discharge, dysuria, frequency, hematuria, pain Musculoskeletal: Denies: gout, joint swelling, muscle pain, muscle stiffness Skin: Denies: change in color, dryness, lesions, lumps, rash, other Neurological: Denies: anxiety, depressed, emotional problems, headache, numbness, paresthesia, pre-existing deficit, seizure, tingling, tremors, weakness Endocrine: Denies: excessive sweating, flushing, intolerance to cold, intolerance to heat, increased hunger, increased thirst, increased urine, unexplained weight gain, unexplained weight loss Hematologic/Lymphatic: Denies: anemia, blood clots, easy bleeding, easy bruising, swollen glands All other Systems: Reviewed and Negative Past Medical History (General) - Patient Medical History Hx Seizures: No Hx Stroke: No Hx Dementia: No Hx Asthma: Yes Hx of COPD: No Hx Cardiac Disorders: No Hx Congestive Heart Failure: No Hx Pacemaker: No Hx Hypertension: No Hx Thyroid Disease: No Hx Diabetes: No Hx Gastroesophageal Reflux: No Hx Renal Disease: No Hx Cancer: No Hx of HIV: No Hx Hepatitis C: No Hx MRSA: No Surgical History: noncontributory - Vaccination History Hx Tetanus, Diphtheria Vaccination: Yes - 2019 Hx Influenza Vaccination: Yes Hx Pneumococcal Vaccination: No - Social History Hx Tobacco Use: Yes Cigarettes Packs Per Day: 1 Hx Chewing Tobacco Use: No Hx Alcohol Use: No Hx Substance Use: Yes Hx Substance Use Treatment: Yes Hx Depression: Yes Hx Physical Abuse: No Hx Emotional Abuse: No Hx Suspected Abuse: No - Female History Hx Last Menstrual Period: 08/23/17 Patient : No Expected Date of Delivery:: 06/16/18 Family Medical History - Family History Father Living Status: Still Living Hx Family Hypertension: Yes - multiple family members Hx Family Diabetes: Yes - multiple family members Hx Family Cancer: Yes - colon cancer Mother Family History: No Known Living Status: Still Living Hx Family Hypertension: Yes Physical Exam - Physical Exam General Appearance: Alert, Well Developed, Well Groomed, Well Hydrated, Well Nourished Eye Exam: bilateral normal Ear Exam: bilateral ear: auricle normal Nasal Exam: normal inspection Throat Exam: normal mouth inspection, pharynx normal, dental tenderness, other - poor dental hygiene with missing teeth and swelling and redness around tooth #13,14, with gingival swelling and cavities Neck: non-tender, full range of motion, supple, normal inspection, trachea midline Cardiovascular/Respiratory: regular rate, rhythm, no M/R/G, normal peripheral pulses, no JVD, normal breath sounds, no respiratory distress Abdominal Exam: non-tender, no organomegaly, no hernia 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 Copy, Patient Portal Self Enrollment Instructions: DI for Mouth Pain, DI for Dental Pain Diet: full liquid diet Referrals: Emigdio Gongora MD [Primary Care Provider] - 1-2 Weeks Prescriptions: Acetaminophen W/ Codeine [Tylenol W/ CODEINE #3] 1 ea PO Q6HRS #20 Clindamycin HCl [Cleocin] 300 mg PO Q6H #28 capsule Home Medications: Ambulatory Orders Sertraline HCl 50 mg PO DAILY 04/22/18 Acetaminophen W/ Codeine [Tylenol W/ CODEINE #3] 1 ea PO Q6HRS #20 04/03/19 Clindamycin HCl [Cleocin] 300 mg PO Q6H #28 capsule 04/03/19 Additional Instructions: follow up with dentist
[2019-04-04 00:13] VITALS: BP 144/98
== END 2019-04-04 00:13 | disposition home or self-care (01) ==
LOC: ER 23:23
DX: K02.9 Dental caries, unspecified (principal); K00.0 Anodontia; F32.9 Major depressive disorder, single episode, unspecified; J45.909 Unspecified asthma, uncomplicated; Z87.891 Personal history of nicotine dependence; Z79.899 Other long term (current) drug therapy; Z88.8 Allergy status to other drugs, medicaments and biological substances; Z88.0 Allergy status to penicillin; Z88.5 Allergy status to narcotic agent

== ENCOUNTER 2019-04-05 14:49 | Emergency (ER) | payer SELFPAY ==
[2019-04-05 15:33] VITALS: TEMP 97.2
[2019-04-05] MEDS ORDERED: SODIUM CHLORIDE 0.9% 1000ML 1,000 ML IVS ONE (16:11)
[2019-04-05] MEDS ORDERED: ONDANSETRON INJ 4 MG/2 ML VIAL IV ONE (16:11)
[2019-04-05] MEDS ORDERED: fentaNYL CITRATE INJ 50 MCG/ML AMP IV ONE ×2 (16:14→17:45)
--- NOTE | 2019-04-05 17:07 | CT ---
EXAM DESCRIPTION: Maxillofacial CLINICAL HISTORY: 23 years Female, left facial swelling COMPARISON: None. TECHNIQUE: Transaxial images were obtained without intravenous contrast media. Sagittal and coronal reconstruction was performed.This exam was performed according to our departmental dose-optimization program, which includes automated exposure control, adjustment of the mA and/or kV according to patient size and/or use of iterative reconstruction technique. FINDINGS: The salivary glands appear normal in appearance. Small reactive nodes are observed in the upper neck. Slight soft tissue swelling is observed in the anterior soft tissues of the left cheek. No abscess is detected. The exam reveals mild mucosal sinus disease in both maxillary antra. The remainder the paranasal sinuses are clear. The orbits as imaged are normal. No intra-axial abnormality is seen. Mild deviation of the nasal septum from left to right is observed. Mucosal disease is observed in the left ostiomeatal complex. The right ostiomeatal complex is patent. An accessory ostia is observed in the left maxillary sinus posteriorly. Portions of the mastoid sinus air cells seen are normal. Some dental disease is observed in a posterior left mandibular molar. There is slight lucency about the root suggesting the possibility of infection. No dental disease is observed throughout remaining teeth in the mouth. No further root disease is detected. IMPRESSION: 1. Slight soft tissue swelling is observed in the left cheek. 2. Dental disease is observed about the roots of the last left mandibular molar. 3. Mild maxillary mucosal sinus disease is observed slightly more pronounced on the patient's left. Occlusion of the left ostiomeatal complex is observed. Electronically signed by: Rober Grajeda MD 04/05/2019 5:05 PM [facility]
[2019-04-05 17:11] VITALS: O2SAT 97
--- NOTE | 2019-04-05 18:00 | ED.PDOC ---
History of Present Illness - General Chief Complaint: Dental/Mouth Stated Complaint: Dental pain and facial swelling Time Seen by Provider: 04/05/19 16:02 Source: patient, RN notes reviewed, Vital Signs reviewed Exam Limitations: no limitations - History of Present Illness Initial Comments: Patient is a 23-year-old white female who presents with complaints of facial swelling and dental pain. She was seen here a few days ago and started on antibiotics, clindamycin, and she feels that the pain and swelling has gotten worse. The pain is stabbing in nature and throbbing. It is severe, it keeps her up at night. Pain is worse with trying to drink cold water or eat. Nothing is helping the pain including her pain medicine. Timing/Duration: gradual Severity: severe EENT Location: dental, other - Left cheek Prearrival Treatment: prescription meds Improving Factors: nothing Worsening Factors: cold therapy, other - Eating or drinking Associated Symptoms: facial pain/swelling, poor fluid intake, poor solids intake Allergies/Adverse Reactions: Allergies Amoxicillin Allergy (Intermediate, Verified 04/03/19 23:42) Hives Ethanol [From Robitussin] Allergy (Verified 04/06/18 22:27) vomits Guaifenesin [From Robitussin] Allergy (Verified 04/06/18 22:27) Penicillins Allergy (Verified 04/06/18 22:27) Hives Tramadol Allergy (Verified 04/06/18 22:27) Home Medications: Ambulatory Orders Sertraline HCl 50 mg PO DAILY 04/22/18 Acetaminophen W/ Codeine [Tylenol W/ CODEINE #3] 1 ea PO Q6HRS #20 04/03/19 Clindamycin HCl [Cleocin] 300 mg PO Q6H #28 capsule 04/03/19 Acetaminophen W/ Codeine [Tylenol W/ CODEINE #3] 1 ea PO Q6H #12 04/05/19 Review of Systems - Review of Systems Constitutional: States: see HPI, chills. Denies: fever EENTM: States: mouth pain, mouth swelling Respiratory: States: no symptoms reported. Denies: short of breath, wheezing Cardiology: States: no symptoms reported Gastrointestinal/Abdominal: States: no symptoms reported Genitourinary: States: no symptoms reported Musculoskeletal: States: no symptoms reported Skin: States: no symptoms reported Neurological: States: no symptoms reported Endocrine: States: no symptoms reported Hematologic/Lymphatic: States: no symptoms reported All other Systems: Reviewed and Negative Past Medical History (General) - Patient Medical History Hx Seizures: No Hx Stroke: No Hx Dementia: No Hx Asthma: Yes Hx of COPD: No Hx Cardiac Disorders: No Hx Congestive Heart Failure: No Hx Pacemaker: No Hx Hypertension: No Hx Thyroid Disease: No Hx Diabetes: No Hx Gastroesophageal Reflux: No Hx Renal Disease: No Hx Cancer: No Hx of HIV: No Hx Hepatitis C: No Hx MRSA: No Surgical History: appendectomy - Vaccination History Hx Tetanus, Diphtheria Vaccination: Yes - 2019 Hx Influenza Vaccination: Yes Hx Pneumococcal Vaccination: No - Social History Hx Tobacco Use: Yes Hx Chewing Tobacco Use: No Hx Alcohol Use: No Hx Substance Use: Yes Hx Substance Use Treatment: Yes Hx Depression: Yes Hx Physical Abuse: No Hx Emotional Abuse: No Hx Suspected Abuse: No - Female History Hx Last Menstrual Period: 08/23/17 Patient : No Expected Date of Delivery:: 06/16/18 Family Medical History - Family History Father Living Status: Still Living Hx Family Hypertension: Yes - multiple family members Hx Family Diabetes: Yes - multiple family members Hx Family Cancer: Yes - colon cancer Mother Family History: No Known Living Status: Still Living Hx Family Hypertension: Yes Physical Exam - Physical Exam General Appearance: Alert, Anxious, Obvious distress, Well Developed, Well Groomed, Well Hydrated, Well Nourished Eye Exam: bilateral normal, bilateral abnormal EOM Ear Exam: bilateral ear: auricle normal, canal normal, TM normal Nasal Exam: normal inspection Throat Exam: dental tenderness, maxillary swelling - On the left, other - Patient with significant dental caries and teeth rotted to the gumline along the left upper jaw. Extensive dental caries in the mouth. No trismus. 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 04/05/19 18:46 Patient is markedly improved after IV fluids, IV pain medicines and IV antibiotics. Plan on discharge home with continuation of her clindamycin. Patient now admits that she is almost out of her pain medicines and missed a couple of doses of her pain medicine because she was not at home. Plan on discharge home with some additional Tylenol with codeine and follow-up with a dentist. I have discussed this plan of care with the patient she voices understanding and agreement. Christian Hassan M.D. #[id number] - Results/Orders Results/Orders: EXAM DESCRIPTION: Maxillofacial CLINICAL HISTORY: 23 years Female, left facial swelling COMPARISON: None. TECHNIQUE: Transaxial images were obtained without intravenous contrast media. Sagittal and coronal reconstruction was performed.This exam was performed according to our departmental dose-optimization program, which includes automated exposure control, adjustment of the mA and/or kV according to patient size and/or use of iterative reconstruction technique. FINDINGS: The salivary glands appear normal in appearance. Small reactive nodes are observed in the upper neck. Slight soft tissue swelling is observed in the anterior soft tissues of the left cheek. No abscess is detected. The exam reveals mild mucosal sinus disease in both maxillary antra. The remainder the paranasal sinuses are clear. The orbits as imaged are normal. No intra-axial abnormality is seen. Mild deviation of the nasal septum from left to right is observed. Mucosal disease is observed in the left ostiomeatal complex. The right ostiomeatal complex is patent. An accessory ostia is observed in the left maxillary sinus posteriorly. Portions of the mastoid sinus air cells seen are normal. Some dental disease is observed in a posterior left mandibular molar. There is slight lucency about the root suggesting the possibility of infection. No dental disease is observed throughout remaining teeth in the mouth. No further root disease is detected. IMPRESSION: 1. Slight soft tissue swelling is observed in the left cheek. 2. Dental disease is observed about the roots of the last left mandibular molar. 3. Mild maxillary mucosal sinus disease is observed slightly more pronounced on the patient's left. Occlusion of the left ostiomeatal complex is observed. Electronically signed by: Rober Grajeda MD 04/05/2019 5:05 PM 04/05/19 15:59 HCG,SERUM Stat Laboratory Results - last 24 hr 04/05/19 04/05/19 16:07 16:07 WBC 13.9 H RBC 4.95 Hgb 13.8 Hct 40.8 MCV 82.4 MCH 27.9 MCHC 33.9 RDW 15.2 H Plt Count 271 MPV 9.8 Absolute Neuts (auto) 11.10 H Absolute Lymphs (auto) 1.50 Absolute Monos (auto) 0.80 Absolute Eos (auto) 0.50 H Absolute Basos (auto) 0.10 Neutrophils % 79.2 H Lymphocytes % 10.9 L Monocytes % 6.0 Eosinophils % 3.5 Basophils % 0.4 Sodium 137 Potassium 4.1 Chloride 102 Carbon Dioxide 25 Anion Gap 14.1 BUN 11 Creatinine 0.81 BUN/Creatinine Ratio 13.6 Random Glucose 110 H Serum Osmolality 273.9 L Calcium 9.1 Total Bilirubin 0.8 AST 77 H ALT 85 H Alkaline Phosphatase 96 Serum Total Protein 7.8 Albumin 4.0 Globulin 3.8 H Albumin/Globulin Ratio 1.1 Departure - Departure Clinical Impression: Facial cellulitis, Dental caries, Gingivitis Time of Disposition: 18:49 Disposition: Discharge to Home or Self Care Condition: Good Departure Forms: ED Discharge - Pt. Copy, Patient Portal Self Enrollment Instructions: DI for Mouth Pain Referrals: Emigdio Gongora MD [Primary Care Provider] - 1-5 Days Prescriptions: Acetaminophen W/ Codeine [Tylenol W/ CODEINE #3] 1 ea PO Q6H #12 Home Medications: Ambulatory Orders Sertraline HCl 50 mg PO DAILY 04/22/18 Acetaminophen W/ Codeine [Tylenol W/ CODEINE #3] 1 ea PO Q6HRS #20 04/03/19 Clindamycin HCl [Cleocin] 300 mg PO Q6H #28 capsule 04/03/19 Acetaminophen W/ Codeine [Tylenol W/ CODEINE #3] 1 ea PO Q6H #12 04/05/19
[2019-04-05 18:06] VITALS: BP 97/61
== END 2019-04-05 19:02 | disposition home or self-care (01) ==
LOC: ER 14:49
DX: K02.9 Dental caries, unspecified (principal); L03.211 Cellulitis of face; K05.10 Chronic gingivitis, plaque induced; F32.9 Major depressive disorder, single episode, unspecified; J45.909 Unspecified asthma, uncomplicated; Z87.891 Personal history of nicotine dependence; Z79.899 Other long term (current) drug therapy; Z88.1 Allergy status to other antibiotic agents; Z88.8 Allergy status to other drugs, medicaments and biological substances; Z88.0 Allergy status to penicillin; Z88.5 Allergy status to narcotic agent
CPT/HCPCS: 70486; 80053; 84703; 85025; J2405; J3010; J7030

== ENCOUNTER 2019-06-02 18:47 | Emergency (ER) | payer SELFPAY ==
[2019-06-02] MEDS ORDERED: ACETAMINOPHEN 325 MG TAB PO ONE (19:09)
[2019-06-02] MEDS ORDERED: ALBUTEROL SULFATE NEBS (ED DISPENSE) 2.5 MG/3 ML VIAL NEB PRN (19:09)
--- NOTE | 2019-06-02 19:14 | ED.PDOC ---
History of Present Illness - General Chief Complaint: Respiratory Problem Stated Complaint: cough, congestion, runny nose Time Seen by Provider: 06/02/19 19:08 Additional Information: Patient is a 23-year-old female who presents the ED with chief complaint of URI type symptoms for the past 3 days. Patient indicates her symptoms began with a sore throat, stuffy nose and runny nose and progressed to a dry cough. Patient is a smoker. Patient denies fever or chest pain. Patient indicates she has a history of asthma. Patient has a family history of diabetes and checked her blood sugar on her aunt's meter 1 day and it was 242; patient does not have a personal history of diabetes. Patient indicates her sore throat is moderate and that she is able to swallow without difficulty. Patient has no other complaints at this time. - History of Present Illness Allergies/Adverse Reactions: Allergies Amoxicillin Allergy (Intermediate, Verified 04/03/19 23:42) Hives Ethanol [From Robitussin] Allergy (Verified 04/06/18 22:27) vomits Guaifenesin [From Robitussin] Allergy (Verified 04/06/18 22:27) Penicillins Allergy (Verified 04/06/18 22:27) Hives Tramadol Allergy (Verified 04/06/18 22:27) Home Medications: Ambulatory Orders Sertraline HCl 50 mg PO DAILY 04/22/18 Clindamycin HCl 300 mg PO Q8HR #30 cap 05/18/19 Acetaminophen [Tylenol] 650 mg PO Q6H #50 tab 06/02/19 Albuterol Inhaler [Ventolin Hfa Inhaler] 2 puff INH Q4H PRN #1 inh 06/02/19 Azithromycin [Zithromax Z-Nilson] 250 mg PO DAILY #6 tab 06/02/19 Benzonatate Perles [Tessalon Perles] 100 mg PO Q6H PRN #20 cap 06/02/19 Review of Systems - Review of Systems Constitutional: States: no symptoms reported. Denies: chills, fever EENTM: States: see HPI. Denies: throat swelling Respiratory: States: see HPI, cough. Denies: short of breath Cardiology: States: no symptoms reported. Denies: chest pain, palpitations Gastrointestinal/Abdominal: States: no symptoms reported. Denies: abdominal pain, nausea, vomiting Skin: States: no symptoms reported. Denies: rash All other Systems: Reviewed and Negative Past Medical History (General) - Patient Medical History Hx Seizures: No Hx Stroke: No Hx Dementia: No Hx Asthma: Yes Hx of COPD: No Hx Cardiac Disorders: No Hx Congestive Heart Failure: No Hx Pacemaker: No Hx Hypertension: No Hx Thyroid Disease: No Hx Diabetes: No Hx Gastroesophageal Reflux: No Hx Renal Disease: No Hx Cancer: No Hx of HIV: No Hx Hepatitis C: No Hx MRSA: No - Vaccination History Hx Tetanus, Diphtheria Vaccination: Yes - 2019 Hx Influenza Vaccination: Yes Hx Pneumococcal Vaccination: No - Social History Hx Tobacco Use: Yes Hx Chewing Tobacco Use: No Hx Alcohol Use: No Hx Substance Use: Yes Hx Substance Use Treatment: Yes Hx Depression: Yes Hx Physical Abuse: No Hx Emotional Abuse: No Hx Suspected Abuse: No - Female History Hx Last Menstrual Period: 08/23/17 Patient : No Expected Date of Delivery:: 06/16/18 Family Medical History - Family History Father Living Status: Still Living Hx Family Hypertension: Yes - multiple family members Hx Family Diabetes: Yes - multiple family members Hx Family Cancer: Yes - colon cancer Mother Family History: No Known Living Status: Still Living Hx Family Hypertension: Yes Physical Exam - Physical Exam General Appearance: Alert, Comfortable, No apparent distress, Obese ENT Exam: normal ENT inspection, pharynx normal Neck: full range of motion, supple, normal inspection Respiratory: lungs clear, normal breath sounds, no respiratory distress, no accessory muscle use Cardiovascular/Chest: regular rate, rhythm, no edema, no gallop, no JVD, no murmur Extremity: normal range of motion, normal inspection Neurologic: no motor/sensory deficits, alert, normal mood/affect Skin Exam: normal color, warm/dry Progress - Progress Progress: 06/02/19 19:16 Differential diagnosis includes but is not limited to pneumonia, bronchitis, strep throat, URI. 06/02/19 20:18 Patient's labs are unremarkable but her chest x-ray suggest possible early pneumonia. Given that patient is a smoker, will err on the side of caution and discharge with Z-Nilson, albuterol, Tessalon and patient to follow-up with her PCP. Vital signs stable, patient is NAD and looks clinically well and I believe is safe for discharge with outpatient follow-up. Follow-up instructions, discharge instructions and return to ED precautions discussed with patient. Patient voices understanding and willingness to comply with instructions. All laboratory and radiographic results have been discussed with the patient, and all questions answered. Patient is happy with plan. - Results/Orders Results/Orders: 06/02/19 19:05 STREP A SCREEN CULTURE Stat 06/02/19 19:09 Albuterol Sulfate Nebs (Ed Dis [Proventil Nebs ED DISPENSE] 2.5 ml NEB Q4H PRN Laboratory Results WBC 12.7 K/mm3 (4.8-10.8) H 06/02/19 19:35 RBC 4.81 M/mm3 (4.20-5.40) 06/02/19 19:35 Hgb 13.8 gm/dL (12.0-16.0) 06/02/19 19:35 Hct 40.2 % (36.0-47.0) 06/02/19 19:35 MCV 83.6 fl (81.0-99.0) 06/02/19 19:35 MCH 28.6 pg (27.0-31.0) 06/02/19 19:35 MCHC 34.3 g/dL (33.0-37.0) 06/02/19 19:35 RDW 14.4 % (11.5-14.5) 06/02/19 19:35 Plt Count 242 K/mm3 (130-400) 06/02/19 19:35 MPV 9.2 fl (7.40-10.4) 06/02/19 19:35 Absolute Neuts (auto) 8.60 K/uL (1.8-6.8) H 06/02/19 19:35 Absolute Lymphs (auto) 2.80 K/uL (1.0-3.4) 06/02/19 19:35 Absolute Monos (auto) 0.80 K/uL (0.2-0.8) 06/02/19 19:35 Absolute Eos (auto) 0.50 K/uL (0.0-0.4) H 06/02/19 19:35 Absolute Basos (auto) 0.10 K/uL (0.0-0.1) 06/02/19 19:35 Neutrophils % 67.9 % (42.0-78.0) 06/02/19 19:35 Lymphocytes % 21.9 % (20.0-50.0) 06/02/19 19:35 Monocytes % 6.1 % (2.0-9.0) 06/02/19 19:35 Eosinophils % 3.6 % (1.0-5.0) 06/02/19 19:35 Basophils % 0.5 % (0.0-2.0) 06/02/19 19:35 Sodium 138 mmol/L (135-145) 06/02/19 19:35 Potassium 3.5 mmol/L (3.6-5.0) L 06/02/19 19:35 Chloride 105 mmol/L (101-111) 06/02/19 19:35 Carbon Dioxide 25 mmol/L (21-31) 06/02/19 19:35 Anion Gap 11.5 (12-18) L 06/02/19 19:35 BUN 7 mg/dL (7-18) 06/02/19 19:35 Creatinine 0.74 mg/dL (0.6-1.3) 06/02/19 19:35 BUN/Creatinine Ratio 9.5 (10-20) L 06/02/19 19:35 Random Glucose 104 mg/dL (70-105) 06/02/19 19:35 Serum Osmolality 274.0 mOsm/L (275-295) L 06/02/19 19:35 Calcium 8.9 mg/dL (8.4-10.2) 06/02/19 19:35 Group A Strep Rapid Negative (NEGATIVE) 06/02/19 19:05 Departure - Departure Clinical Impression: Pneumonia Qualifiers: Pneumonia type: due to unspecified organism Laterality: unspecified laterality Lung location: unspecified part of lung Qualified Code(s): J18.9 - Pneumonia, unspecified organism Time of Disposition: 20:19 Disposition: Discharge to Home or Self Care Condition: Fair Departure Forms: ED Discharge - Pt. Copy, Patient Portal Self Enrollment Referrals: Emigdio Gongora MD [Primary Care Provider] - 1 Week Prescriptions: Acetaminophen [Tylenol] 650 mg PO Q6H #50 tab Albuterol Inhaler [Ventolin Hfa Inhaler] 2 puff INH Q4H PRN #1 inh PRN Reason: Shortness Of Breath/Wheezing Azithromycin [Zithromax Z-Nilson] 250 mg PO DAILY #6 tab Benzonatate Perles [Tessalon Perles] 100 mg PO Q6H PRN #20 cap PRN Reason: Cough Home Medications: Ambulatory Orders Sertraline HCl 50 mg PO DAILY 04/22/18 Clindamycin HCl 300 mg PO Q8HR #30 cap 05/18/19 Acetaminophen [Tylenol] 650 mg PO Q6H #50 tab 06/02/19 Albuterol Inhaler [Ventolin Hfa Inhaler] 2 puff INH Q4H PRN #1 inh 06/02/19 Azithromycin [Zithromax Z-Nilson] 250 mg PO DAILY #6 tab 06/02/19 Benzonatate Perles [Tessalon Perles] 100 mg PO Q6H PRN #20 cap 06/02/19
[2019-06-02 19:19] VITALS: TEMP 97.5
[2019-06-02] MEDS ORDERED: ALBUTEROL SULFATE 2.5 MG/3 ML VIAL NEB ONE (19:25)
--- NOTE | 2019-06-02 19:35 | RAD ---
EXAM: XR Chest, 1 View CLINICAL HISTORY: 23 years old Female; cough. TECHNIQUE: Frontal view of the chest. COMPARISON: No relevant prior studies available. FINDINGS: LIMITATIONS: Study provided significantly limited by patient body habitus. LUNGS: Some increased density in the right lung base could relate to developing infiltrate/pneumonia versus artifact related to overlying soft tissue. Lungs otherwise clear of focal infiltrate or mass. PLEURAL SPACE: No pleural fluid. No pneumothorax. HEART: Heart not significantly enlarged. MEDIASTINUM: Unremarkable. BONES/JOINTS: No acute bony abnormality seen. IMPRESSION: - Some increased density in the right lung base could relate to developing infiltrate/pneumonia versus artifact related to overlying soft tissue. Clinical correlation is suggested. - Study provided significantly limited by patient body habitus. Thank you for allowing us to participate in the care of this patient. Electronically signed by: Anoop Perez MD 06/02/2019 7:34 PM CDT
[2019-06-02 20:06] VITALS: BP 106/89; O2SAT 96
== END 2019-06-02 20:28 | disposition home or self-care (01) ==
LOC: ER 18:47
DX: J18.9 Pneumonia, unspecified organism (principal); F17.200 Nicotine dependence, unspecified, uncomplicated; J45.909 Unspecified asthma, uncomplicated; F32.9 Major depressive disorder, single episode, unspecified; Z79.899 Other long term (current) drug therapy; Z88.5 Allergy status to narcotic agent; Z88.0 Allergy status to penicillin; Z88.8 Allergy status to other drugs, medicaments and biological substances
CPT/HCPCS: 71045; 80048; 85025; 87070; 87502; 87880; 94640; J7611

== ENCOUNTER 2019-06-06 | Emergency (ER) | payer SELFPAY ==
--- NOTE | 2019-06-06 14:44 | ED.PDOC ---
History of Present Illness - General Chief Complaint: Respiratory Problem Stated Complaint: cough, congestion Time Seen by Provider: 06/06/19 14:12 Source: patient Exam Limitations: no limitations - History of Present Illness Initial Comments: The patient Is a 23-year-old female presented emergency room secondary to persistent cough. She was seen approximately 4 days ago for similar symptoms and was put on azithromycin. She is not having any increasing shortness of breath fever. The cough is simply annoying. No chest pain or shortness of breath. No respiratory distress. No altered mental status. No rash. No worsening of any sore throat. She has been taking azithromycin. Timing/Duration: 1 week Severity: moderate Improving Factors: nothing Worsening Factors: nothing Associated Symptoms: cough Allergies/Adverse Reactions: Allergies Amoxicillin Allergy (Intermediate, Verified 04/03/19 23:42) Hives Ethanol [From Robitussin] Allergy (Verified 04/06/18 22:27) vomits Guaifenesin [From Robitussin] Allergy (Verified 04/06/18 22:27) Penicillins Allergy (Verified 04/06/18 22:27) Hives Tramadol Allergy (Verified 04/06/18 22:27) Home Medications: Ambulatory Orders Sertraline HCl 50 mg PO DAILY 04/22/18 Clindamycin HCl 300 mg PO Q8HR #30 cap 05/18/19 Acetaminophen [Tylenol] 650 mg PO Q6H #50 tab 06/02/19 Albuterol Inhaler [Ventolin Hfa Inhaler] 2 puff INH Q4H PRN #1 inh 06/02/19 Azithromycin [Zithromax Z-Nilson] 250 mg PO DAILY #6 tab 06/02/19 Benzonatate Perles [Tessalon Perles] 100 mg PO Q6H PRN #20 cap 06/02/19 Review of Systems - Review of Systems Constitutional: States: malaise EENTM: States: nose congestion, throat pain - Mild Respiratory: States: cough Cardiology: States: no symptoms reported Gastrointestinal/Abdominal: States: no symptoms reported Genitourinary: States: no symptoms reported Musculoskeletal: States: no symptoms reported Skin: States: no symptoms reported Neurological: States: no symptoms reported Endocrine: States: no symptoms reported All other Systems: No Change from Baseline Past Medical History (General) - Patient Medical History Hx Seizures: No Hx Stroke: No Hx Dementia: No Hx Asthma: Yes Hx of COPD: No Hx Cardiac Disorders: No Hx Congestive Heart Failure: No Hx Pacemaker: No Hx Hypertension: No Hx Thyroid Disease: No Hx Diabetes: No Hx Gastroesophageal Reflux: No Hx Renal Disease: No Hx Cancer: No Hx of HIV: No Hx Hepatitis C: No Hx MRSA: No - Vaccination History Hx Tetanus, Diphtheria Vaccination: Yes - 2019 Hx Influenza Vaccination: Yes Hx Pneumococcal Vaccination: No - Social History Hx Tobacco Use: Yes Hx Chewing Tobacco Use: No Hx Alcohol Use: No Hx Substance Use: Yes Hx Substance Use Treatment: Yes Hx Depression: Yes Hx Physical Abuse: No Hx Emotional Abuse: No Hx Suspected Abuse: No - Activities of Daily Living Hospice Agency (if applicable):: None - Female History Hx Last Menstrual Period: 08/23/17 Patient : No Expected Date of Delivery:: 06/16/18 - Triage Comment ED Triage Comment: pt voices cough, congestion, runny nose for one week. Family Medical History - Family History Father Living Status: Still Living Hx Family Hypertension: Yes - multiple family members Hx Family Diabetes: Yes - multiple family members Hx Family Cancer: Yes - colon cancer Mother Family History: No Known Living Status: Still Living Hx Family Hypertension: Yes Physical Exam - Physical Exam General Appearance: Alert, Comfortable, No apparent distress Eye Exam: bilateral normal Ears, Nose, Throat: hearing grossly normal, nasal congestion, pharyngeal erythema - Mild Neck: full range of motion, supple Respiratory: lungs clear, normal breath sounds, no respiratory distress, no accessory muscle use Cardiovascular/Chest: normal peripheral pulses, regular rate, rhythm, no edema Peripheral Pulses: radial,right: 2+, radial,left: 2+ Gastrointestinal/Abdominal: non tender, soft Rectal Exam: deferred Back Exam: no CVA tenderness, no vertebral tenderness Extremity: normal range of motion, non-tender, normal inspection, no pedal edema, normal capillary refill 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 She has been on azithromycin already for approximately 4 days. There is no evidence of any lower respiratory tract infection and no respiratory distress. The patient can take Zyrtec 1 tablet daily to help reduce postnasal drainage from it. Tylenol as well as needed. ER warnings are given for any worsening. 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 [email or web address] [id number] Departure - Departure Clinical Impression: Viral upper respiratory illness Disposition: Discharge to Home or Self Care Condition: Fair Departure Forms: ED Discharge - Pt. Copy, Patient Portal Self Enrollment Instructions: Viral Upper Respiratory Infection, Adult (DC) Diet: regular diet Activity: increase activity as tolerated Referrals: Emigdio Gongora MD [Primary Care Provider] - 1-2 Weeks Home Medications: Ambulatory Orders Sertraline HCl 50 mg PO DAILY 04/22/18 Clindamycin HCl 300 mg PO Q8HR #30 cap 05/18/19 Acetaminophen [Tylenol] 650 mg PO Q6H #50 tab 06/02/19 Albuterol Inhaler [Ventolin Hfa Inhaler] 2 puff INH Q4H PRN #1 inh 06/02/19 Azithromycin [Zithromax Z-Nilson] 250 mg PO DAILY #6 tab 06/02/19 Benzonatate Perles [Tessalon Perles] 100 mg PO Q6H PRN #20 cap 06/02/19 Additional Instructions: The patient is a 23-year-old female presented emergency room with symptoms of a viral upper respiratory tract infection. She has been on azithromycin already for approximately 4 days. There is no evidence of any lower respiratory tract infection and no respiratory distress. The patient can take Zyrtec 1 tablet daily to help reduce postnasal drainage from it. Tylenol as well as needed. ER warnings are given for any worsening. 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
== END 2019-06-06 15:06 | disposition home or self-care (01) ==

== ENCOUNTER 2019-07-30 18:19 | Emergency (ER) | payer SELFPAY ==
--- NOTE | 2019-07-30 18:44 | ED.PDOC ---
History of Present Illness - General Chief Complaint: General Stated Complaint: Dental pain, abd pain, N/V/D Time Seen by Provider: 07/30/19 18:36 Additional Information: 24yo M presents with complaint of dental pain and abdominal symptoms. Dental pain has been an ongoing issue. She reports discomfort in the front left upper mouth. No facial swelling. The patient additionally reports generalized abdominal discomfort associated with nausea, vomiting and diarrhea. She does not know of any clear precipitant. Has not been around sick contact. No poor food exposure. She denies dysuria, vaginal bleeding or discharge. She has hx of appendectomy. The patient reports no other issues at this time. - History of Present Illness Timing/Duration: 24 hours Worsening Factors: nothing Allergies/Adverse Reactions: Allergies Amoxicillin Allergy (Intermediate, Verified 07/30/19 18:37) Hives Ethanol [From Robitussin] Allergy (Verified 07/30/19 18:37) vomits Guaifenesin [From Robitussin] Allergy (Verified 07/30/19 18:37) Penicillins Allergy (Verified 07/30/19 18:37) Hives Tramadol Allergy (Verified 07/30/19 18:37) Home Medications: Ambulatory Orders Sertraline HCl 50 mg PO DAILY 04/22/18 Albuterol Inhaler [Ventolin Hfa Inhaler] 2 puff INH Q4H PRN #1 inh 06/02/19 Acetamin W/Cod #3 Tab [Tylenol w/CODEINE #3] 1 ea PO Q6H PRN #12 tab 07/30/19 Azithromycin Tab [Zithromax Tab] 250 mg PO DAILY #6 tab 07/30/19 Ondansetron Odt [Zofran ODT] 4 mg PO Q4H PRN #12 tab 07/30/19 Review of Systems - Review of Systems Constitutional: Denies: chills, fever EENTM: States: mouth pain. Denies: nose congestion, throat pain Respiratory: Denies: cough, short of breath Cardiology: Denies: chest pain, palpitations Gastrointestinal/Abdominal: States: abdominal pain, diarrhea, nausea, vomiting. Denies: constipation Genitourinary: Denies: discharge, dysuria, frequency, hematuria Musculoskeletal: States: no symptoms reported Skin: States: no symptoms reported Neurological: Denies: headache, numbness, paresthesia, weakness Endocrine: States: no symptoms reported Hematologic/Lymphatic: States: no symptoms reported Past Medical History (General) - Patient Medical History Hx Seizures: No Hx Stroke: No Hx Dementia: No Hx Asthma: Yes Hx of COPD: No Hx Cardiac Disorders: No Hx Congestive Heart Failure: No Hx Pacemaker: No Hx Hypertension: No Hx Thyroid Disease: No Hx Diabetes: No Hx Gastroesophageal Reflux: No Hx Renal Disease: No Hx Cancer: No Hx of HIV: No Hx Hepatitis C: No Hx MRSA: No Surgical History: appendectomy, other - Vaccination History Hx Tetanus, Diphtheria Vaccination: Yes - 2019 Hx Influenza Vaccination: Yes Hx Pneumococcal Vaccination: No - Social History Hx Tobacco Use: Yes Hx Chewing Tobacco Use: No Hx Alcohol Use: No Hx Substance Use: No Hx Substance Use Treatment: No Hx Depression: No Hx Physical Abuse: No Hx Emotional Abuse: No Hx Suspected Abuse: No - Female History Patient is a Female of Child Bearing Age (10 -59 yrs old): Yes Hx Last Menstrual Period: 08/23/17 Patient : No - Denies Expected Date of Delivery:: 06/16/18 Family Medical History - Family History Father Living Status: Still Living Hx Family Hypertension: Yes - multiple family members Hx Family Diabetes: Yes - multiple family members Hx Family Cancer: Yes - colon cancer Mother Family History: No Known Living Status: Still Living Hx Family Hypertension: Yes Physical Exam - Physical Exam General Appearance: Alert, Comfortable Eye Exam: bilateral normal Ears, Nose, Throat: hearing grossly normal, normal pharynx, other - Generally poor dentition. Erythema to gums in L upper anterior mouth. No abscess, no trismus, no erythema or facial swelling. Neck: non-tender, full range of motion, supple Respiratory: chest non-tender, lungs clear, normal breath sounds, no respiratory distress, no accessory muscle use Cardiovascular/Chest: normal peripheral pulses, regular rate, rhythm, no edema Gastrointestinal/Abdominal: normal bowel sounds, non tender, soft, other - Non- specific discomfort without focal tenderness. No rebound or guarding. Back Exam: normal inspection, no CVA tenderness Extremity: normal range of motion, non-tender Neurologic: no motor/sensory deficits, alert, normal mood/affect, oriented x 3 Skin Exam: normal color, warm/dry Progress - Progress Progress: DDX: dental infection, gastroenteritis, hepatobiliary problem, SBO, colitis, gym problem, UTI, pancreatitis. [facility][id number] 07/30/19 20:26 Results reviewed. No acute findings at this time. On repeat evaluation, the patient reports improved symptoms. No N, V or D in the ED. Her abdomen is presently NT and benign. Results discussed. Suspect GI symptoms at this time will be self limiting. I will treat her for dental infection. We discussed pathways for follow up and reasons for immediate return to the ER. The patient understands to return for any persistent, new or worse symptoms. We discussed that failure to follow up for ongoing assessment could result in poor outcome. All questions answered. It was a pleasure to care for this patient today. - Results/Orders Results/Orders: Laboratory Results - last 24 hr 07/30/19 07/30/19 07/30/19 18:50 18:50 18:50 WBC 11.6 H RBC 4.94 Hgb 14.3 Hct 41.6 MCV 84.1 MCH 28.9 MCHC 34.3 RDW 14.0 Plt Count 290 MPV 8.9 Absolute Neuts (auto) 7.50 H Absolute Lymphs (auto) 3.30 Absolute Monos (auto) 0.60 Absolute Eos (auto) 0.30 Absolute Basos (auto) 0.10 Neutrophils % 64.1 Lymphocytes % 28.0 Monocytes % 5.1 Eosinophils % 2.3 Basophils % 0.5 Sodium 139 Potassium 3.9 Chloride 108 Carbon Dioxide 24 Anion Gap 10.9 L BUN 15 Creatinine 0.79 BUN/Creatinine Ratio 19.0 Random Glucose 129 H Serum Osmolality 280.1 Calcium 9.0 Total Bilirubin 0.3 AST 15 ALT 18 Alkaline Phosphatase 73 Serum Total Protein 7.1 Albumin 3.8 Globulin 3.3 Albumin/Globulin Ratio 1.2 Lipase 33 Urine Color Urine Appearance Urine pH Ur Specific [place] Urine Protein Urine Glucose (UA) Urine Ketones Urine Blood Urine Nitrite Urine Bilirubin Urine Urobilinogen Ur Leukocyte Esterase Urine RBC Urine WBC Ur Epithelial Cells Urine Bacteria Urine HCG, Qual 07/30/19 07/30/19 19:32 19:32 WBC RBC Hgb Hct MCV MCH MCHC RDW Plt Count MPV Absolute Neuts (auto) Absolute Lymphs (auto) Absolute Monos (auto) Absolute Eos (auto) Absolute Basos (auto) Neutrophils % Lymphocytes % Monocytes % Eosinophils % Basophils % Sodium Potassium Chloride Carbon Dioxide Anion Gap BUN Creatinine BUN/Creatinine Ratio Random Glucose Serum Osmolality Calcium Total Bilirubin AST ALT Alkaline Phosphatase Serum Total Protein Albumin Globulin Albumin/Globulin Ratio Lipase Urine Color Yellow Urine Appearance Clear Urine pH 6.0 Ur Specific [place] 1.025 Urine Protein Negative Urine Glucose (UA) Negative Urine Ketones Negative Urine Blood Negative Urine Nitrite Negative Urine Bilirubin Negative Urine Urobilinogen 0.2 Ur Leukocyte Esterase Trace H Urine RBC 0-1 Urine WBC 1-3 Ur Epithelial Cells 1-3 Urine Bacteria 0 Urine HCG, Qual Negative Last Vital Signs Temp 97.6 F 07/30/19 20:22 Pulse 82 07/30/19 20:22 Resp 18 07/30/19 20:22 BP 134/83 07/30/19 20:22 Pulse Ox 99 07/30/19 20:22 Departure - Departure Clinical Impression: Dental infection, Acute abdominal pain, Nausea vomiting and diarrhea, Dehydration Time of Disposition: 20:03 Disposition: Discharge to Home or Self Care Condition: Good Departure Forms: ED Discharge - Pt. Copy, Patient Portal Self Enrollment Instructions: Acute Abdomen (Belly Pain), Adult (DC), Dental Pain (DC) Prescriptions: Acetamin W/Cod #3 Tab [Tylenol w/CODEINE #3] 1 ea PO Q6H PRN #12 tab PRN Reason: Pain Azithromycin Tab [Zithromax Tab] 250 mg PO DAILY #6 tab Ondansetron Odt [Zofran ODT] 4 mg PO Q4H PRN #12 tab PRN Reason: Nausea Home Medications: Ambulatory Orders Sertraline HCl 50 mg PO DAILY 04/22/18 Albuterol Inhaler [Ventolin Hfa Inhaler] 2 puff INH Q4H PRN #1 inh 06/02/19 Acetamin W/Cod #3 Tab [Tylenol w/CODEINE #3] 1 ea PO Q6H PRN #12 tab 07/30/19 Azithromycin Tab [Zithromax Tab] 250 mg PO DAILY #6 tab 07/30/19 Ondansetron Odt [Zofran ODT] 4 mg PO Q4H PRN #12 tab 07/30/19 Additional Instructions: Please follow up with a dentist and your primary physician.
[2019-07-30] MEDS: MORPHINE SULFATE INJ 10 MG/ML VIAL IV ONE (18:52)
[2019-07-30] MEDS: ONDANSETRON INJ 4 MG/2 ML VIAL IV ONE (18:53)
[2019-07-30] MEDS: LACTATED RINGERS 1,000 ML IVS ONE (18:54)
[2019-07-30 20:24] VITALS: BP 134/83; TEMP 97.6; O2SAT 99
== END 2019-07-30 20:24 | disposition home or self-care (01) ==
LOC: ER 18:19
DX: K04.7 Periapical abscess without sinus (principal); K08.89 Other specified disorders of teeth and supporting structures; E86.0 Dehydration; R10.84 Generalized abdominal pain; R11.2 Nausea with vomiting, unspecified; R19.7 Diarrhea, unspecified; F17.200 Nicotine dependence, unspecified, uncomplicated
CPT/HCPCS: 80053; 81001; 81025; 83690; 85025; J2270; J2405; J7120

== ENCOUNTER 2019-08-11 13:09 | Emergency (ER) | payer SELFPAY ==
[2019-08-11 13:29] VITALS: BP 137/82; TEMP 97.5; O2SAT 97
--- NOTE | 2019-08-11 13:40 | ED.PDOC ---
History of Present Illness - General Chief Complaint: Dental/Mouth Stated Complaint: dental pain and right lower quad back pain Time Seen by Provider: 08/11/19 13:14 Source: patient Exam Limitations: no limitations - History of Present Illness Initial Comments: The patient is a 24-year-old female presented emergency room secondary to another infected dental root secondary to chronic dental caries. This time it is the upper canine on the left. There is a small amount of pus draining from the base. No evidence of any large abscess. No evidence of any sepsis. No fevers. Symptoms have been present for about 5 days. Patient reports that she has an appointment with a dentist to get all of her decaying teeth removed next month. Timing/Duration: 1 week Severity: moderate Improving Factors: nothing Worsening Factors: eating Associated Symptoms: denies symptoms Allergies/Adverse Reactions: Allergies Amoxicillin Allergy (Intermediate, Verified 07/30/19 18:37) Hives Ethanol [From Robitussin] Allergy (Verified 07/30/19 18:37) vomits Guaifenesin [From Robitussin] Allergy (Verified 07/30/19 18:37) Penicillins Allergy (Verified 07/30/19 18:37) Hives Tramadol Allergy (Verified 07/30/19 18:37) Home Medications: Ambulatory Orders Sertraline HCl 50 mg PO DAILY 04/22/18 Albuterol Inhaler [Ventolin Hfa Inhaler] 2 puff INH Q4H PRN #1 inh 06/02/19 Acetamin W/Cod #3 Tab [Tylenol w/CODEINE #3] 1 ea PO Q6H PRN #12 tab 07/30/19 Azithromycin Tab [Zithromax Tab] 250 mg PO DAILY #6 tab 07/30/19 Ondansetron Odt [Zofran ODT] 4 mg PO Q4H PRN #12 tab 07/30/19 Xnxokwtwkrpps-Cvzw-Rmdmklnter [Fioricet] 1 ea PO Q8H PRN #10 tab 08/11/19 levoFLOXacin [Levaquin] 500 mg PO DAILY #10 tab 08/11/19 Review of Systems - Review of Systems Constitutional: States: no symptoms reported EENTM: States: see HPI Respiratory: States: no symptoms reported Cardiology: States: no symptoms reported Gastrointestinal/Abdominal: States: no symptoms reported Genitourinary: States: no symptoms reported Musculoskeletal: States: no symptoms reported Skin: States: no symptoms reported Neurological: States: no symptoms reported Endocrine: States: no symptoms reported All other Systems: No Change from Baseline Past Medical History (General) - Patient Medical History Hx Seizures: No Hx Stroke: No Hx Dementia: No Hx Asthma: Yes Hx of COPD: No Hx Cardiac Disorders: No Hx Congestive Heart Failure: No Hx Pacemaker: No Hx Hypertension: No Hx Thyroid Disease: No Hx Diabetes: No Hx Gastroesophageal Reflux: No Hx Renal Disease: No Hx Cancer: No Hx of HIV: No Hx Hepatitis C: No Hx MRSA: No - Vaccination History Hx Tetanus, Diphtheria Vaccination: No Hx Influenza Vaccination: No Hx Pneumococcal Vaccination: No - Social History Hx Tobacco Use: Yes Hx Chewing Tobacco Use: No Hx Alcohol Use: No Hx Substance Use: No Hx Substance Use Treatment: No Hx Depression: Yes - Bipolar Hx Physical Abuse: No Hx Emotional Abuse: No Hx Suspected Abuse: No - Female History Patient is a Female of Child Bearing Age (10 -59 yrs old): Yes Hx Last Menstrual Period: 08/23/17 Patient : - Denies Expected Date of Delivery:: 06/16/18 Family Medical History - Family History Father Living Status: Still Living Hx Family Hypertension: Yes - multiple family members Hx Family Diabetes: Yes - multiple family members Hx Family Cancer: Yes - colon cancer Mother Family History: No Known Living Status: Still Living Hx Family Hypertension: Yes Physical Exam - Physical Exam General Appearance: Alert, Comfortable, No apparent distress Eye Exam: bilateral normal Ears, Nose, Throat: hearing grossly normal, other - Extremely poor dentition with multiple dental caries. See history of present illness. Neck: non-tender, supple Respiratory: no respiratory distress, no accessory muscle use Cardiovascular/Chest: normal peripheral pulses, no edema Peripheral Pulses: radial,right: 2+, radial,left: 2+ Gastrointestinal/Abdominal: non tender - Obese, soft Rectal Exam: deferred Extremity: normal range of motion, no pedal edema, normal capillary refill Neurologic: superintendent radio communications II-XII nml as tested, alert, normal mood/affect, oriented x 3 Skin Exam: normal color Comments: Vital Signs - 8 hr 08/11/19 08/11/19 13:21 13:23 Temperature 97.5 F L Pulse Rate [ 105 H 105 H Left Radial] Respiratory 18 18 Rate Blood Pressure 137/82 [Left Arm] O2 Sat by Pulse 97 Oximetry Progress - Progress Progress: 08/11/19 13:40 The patient is a 24-year-old female with multiple dental caries presenting with what appears to be a small draining abscess to the base of the upper canine on the left. The patient is going to be placed on Levaquin for the next 10 days. She does need to keep follow-up with her dentist to have her decaying teeth removed. She will be written for 10 tablets of Fioricet for as needed use. She can also take Aleve. ER warnings are given. nick [email or web address] [id number] 08/11/19 13:43 [facility] consulted Departure - Departure Clinical Impression: Chronic dental infection Disposition: Transfer to Child Hosp/Cancer Departure Forms: ED Discharge - Pt. Copy, Patient Portal Self Enrollment Instructions: DI for Dental Pain Diet: regular diet Activity: increase activity as tolerated Referrals: Emigdio Gongora MD [Primary Care Provider] - 1-2 Weeks Prescriptions: Unguxninvxdon-Pzsk-Fvadbfmmtj [Fioricet] 1 ea PO Q8H PRN #10 tab PRN Reason: Pain levoFLOXacin [Levaquin] 500 mg PO DAILY #10 tab Home Medications: Ambulatory Orders Sertraline HCl 50 mg PO DAILY 04/22/18 Albuterol Inhaler [Ventolin Hfa Inhaler] 2 puff INH Q4H PRN #1 inh 06/02/19 Acetamin W/Cod #3 Tab [Tylenol w/CODEINE #3] 1 ea PO Q6H PRN #12 tab 07/30/19 Azithromycin Tab [Zithromax Tab] 250 mg PO DAILY #6 tab 07/30/19 Ondansetron Odt [Zofran ODT] 4 mg PO Q4H PRN #12 tab 07/30/19 Xydnnglpzmbvg-Fsur-Wwzakpgill [Fioricet] 1 ea PO Q8H PRN #10 tab 08/11/19 levoFLOXacin [Levaquin] 500 mg PO DAILY #10 tab 08/11/19 Additional Instructions: The patient is a 24-year-old female with multiple dental caries presenting with what appears to be a small draining abscess to the base of the upper canine on the left. The patient is going to be placed on Levaquin for the next 10 days. She does need to keep follow-up with her dentist to have her decaying teeth removed. She will be written for 10 tablets of Fioricet for as needed use. She can also take Aleve. ER warnings are given.
[2019-08-11] MEDS: ACETAMINOPHEN-CAFF-BUTALBITAL 1 EA TAB PO ONE (13:41)
[2019-08-11] MEDS: levoFLOXacin 500 MG TAB PO ONE (13:41)
== END 2019-08-11 13:45 | disposition home or self-care (01) ==
LOC: ER 13:09
DX: K04.7 Periapical abscess without sinus (principal); K02.9 Dental caries, unspecified; J45.909 Unspecified asthma, uncomplicated; F17.200 Nicotine dependence, unspecified, uncomplicated

== ENCOUNTER 2019-08-14 18:50 | Emergency (ER) | payer SELFPAY ==
[2019-08-14] MEDS ORDERED: SODIUM CHLORIDE 0.9% (FLUSH) 10 ML SYG IV PRN (18:53)
[2019-08-14 19:10] VITALS: O2SAT 98
--- NOTE | 2019-08-14 19:30 | ED.PDOC ---
History of Present Illness - General Chief Complaint: Abdominal Pain Stated Complaint: cramping, 2 days late Time Seen by Provider: 08/14/19 18:52 Information Source: patient, RN notes reviewed, Vital Signs reviewed Additional Information: 24yo F no contributory PMH with reported abdominal pain for the past several weeks. Reports pain is dull, changing in positions, not worse/better with any particular activity or trigger. Denies nausea/vomiting, fever, discharge, dysuria, vaginal bleeding, or other complaint. Reports her period is two days late and she is concerned she may be . Review of Systems - Review of Systems Constitutional: States: no symptoms reported EENTM: States: no symptoms reported Respiratory: States: no symptoms reported Cardiology: States: no symptoms reported Gastrointestinal/Abdominal: States: abdominal pain. Denies: nausea, vomiting All other Systems: Reviewed and Negative Past Medical History (General) - Patient Medical History Hx Seizures: No Hx Stroke: No Hx Dementia: No Hx Asthma: Yes Hx of COPD: No Hx Cardiac Disorders: No Hx Congestive Heart Failure: No Hx Pacemaker: No Hx Hypertension: No Hx Thyroid Disease: No Hx Diabetes: No Hx Gastroesophageal Reflux: No Hx Renal Disease: No Hx Cancer: No Hx of HIV: No Hx Hepatitis C: No Hx MRSA: No - Vaccination History Hx Tetanus, Diphtheria Vaccination: Yes Hx Influenza Vaccination: Yes Hx Pneumococcal Vaccination: No - Social History Hx Tobacco Use: Yes Hx Chewing Tobacco Use: No Hx Alcohol Use: No Hx Substance Use: No Hx Substance Use Treatment: No Hx Depression: Yes - Bipolar Hx Physical Abuse: No Hx Emotional Abuse: No Hx Suspected Abuse: No - Female History Hx Last Menstrual Period: 07/12/19 Patient : - Denies Expected Date of Delivery:: 06/16/18 Family Medical History - Family History Father Living Status: Still Living Hx Family Hypertension: Yes - multiple family members Hx Family Diabetes: Yes - multiple family members Hx Family Cancer: Yes - colon cancer Mother Family History: No Known Living Status: Still Living Hx Family Hypertension: Yes Physical Exam - Physical Exam General Appearance: Alert, Comfortable, No apparent distress, Well Developed, Well Nourished Eyes, Ears, Nose, Throat Exam: PERRL/EOMI, normal ENT inspection Neck: non-tender, full range of motion Respiratory: lungs clear, normal breath sounds, no respiratory distress Cardiovascular/Chest: regular rate, rhythm, no murmur Gastrointestinal/Abdominal: normal bowel sounds, non tender, soft Neurologic: mine shifter II-XII nml as tested Skin Exam: normal color, warm/dry Progress - Progress Progress: 08/14/19 19:53 Abdomen soft without peritonitis, objective fever, or clinical volume depletion. Patient is awake and alert without noted altered mental status. No noted anginal equivalents for possible intrathoracic etiology. Does not clinically appear torsion, obstruction, or aortic pathology. Abdomen remained soft and non- peritonitic on recheck. Not tachycardic on my reassessment, and patient desired discharge with outpatient follow-up. Discussed lab findings with patient and need for follow-up. Low suspicion for acutely dangerous intra-abdominal pathology at this time,but recommended follow-up in 24-48hrs for recheck, or sooner in ED for new/worsening symptoms. ED warnings given, and outpatient f/u with PCP. Patient and I wore masks for duration of encounter, and I maintained a distance of 6 feet except for those brief times need for physical exam. Institutional screening protocol for coronavirus performed in triage. 08/14/19 19:55 Departure - Departure Clinical Impression: Abdominal pain Time of Disposition: 19:53 Disposition: Discharge to Home or Self Care Condition: Fair Departure Forms: ED Discharge - Pt. Copy, Patient Portal Self Enrollment Instructions: DI for Abdominal Pain-Adult Diet: resume usual diet Referrals: Emigdio Gongora MD [Primary Care Provider] - 1-5 Days Home Medications: Ambulatory Orders Sertraline HCl 50 mg PO DAILY 04/22/18 Albuterol Inhaler [Ventolin Hfa Inhaler] 2 puff INH Q4H PRN #1 inh 06/02/19 Acetamin W/Cod #3 Tab [Tylenol w/CODEINE #3] 1 ea PO Q6H PRN #12 tab 07/30/19 Azithromycin Tab [Zithromax Tab] 250 mg PO DAILY #6 tab 07/30/19 Ondansetron Odt [Zofran ODT] 4 mg PO Q4H PRN #12 tab 07/30/19 Fxbrdzklzpnnt-Kjef-Gstbrfaimx [Fioricet] 1 ea PO Q8H PRN #10 tab 08/11/19 levoFLOXacin [Levaquin] 500 mg PO DAILY #10 tab 08/11/19
[2019-08-14] MEDS ORDERED: ACETAMINOPHEN 500 MG TAB PO ONE (19:59)
[2019-08-14 20:10] VITALS: BP 146/105; TEMP 97.7
== END 2019-08-14 20:09 | disposition home or self-care (01) ==
LOC: ER 18:50
DX: R10.9 Unspecified abdominal pain (principal); J45.909 Unspecified asthma, uncomplicated; F17.200 Nicotine dependence, unspecified, uncomplicated

== ENCOUNTER 2019-08-30 20:45 | Emergency (ER) | payer SELFPAY ==
[2019-08-30 21:17] VITALS: O2SAT 99
[2019-08-30] MEDS: KETOROLAC TROMETHAMINE INJ 30 MG/ML VIAL IM ONE (21:26)
--- NOTE | 2019-08-30 22:06 | ED.PDOC ---
History of Present Illness - General Chief Complaint: Dental/Mouth Stated Complaint: tooth pain Time Seen by Provider: 08/30/19 21:17 Source: patient, RN notes reviewed, Vital Signs reviewed Exam Limitations: no limitations - History of Present Illness Initial Comments: Patient is a morbidly obese 24-year-old white female with significant dental caries and on antibiotics x4 weeks for dental abscess. Patient is to have the teeth pulled in the next week. Patient presents with pain. She is only been taking NSAIDs approximately once every 12 hours. Patient denies any fevers or chills pain is throbbing in nature. Worse with cold fluids or trying to eat. Nothing makes it better. Nonradiating. Timing/Duration: gradual, intermittent Severity: moderate EENT Location: dental Prearrival Treatment: over the counter meds, prescription meds - Clindamycin Improving Factors: nothing Worsening Factors: cold therapy, other - Eating Associated Symptoms: poor fluid intake, poor solids intake Allergies/Adverse Reactions: Allergies Amoxicillin Allergy (Intermediate, Verified 07/30/19 18:37) Hives Ethanol [From Robitussin] Allergy (Verified 07/30/19 18:37) vomits Guaifenesin [From Robitussin] Allergy (Verified 07/30/19 18:37) Penicillins Allergy (Verified 07/30/19 18:37) Hives Tramadol Allergy (Verified 07/30/19 18:37) Home Medications: Ambulatory Orders Sertraline HCl 50 mg PO DAILY 04/22/18 Albuterol Inhaler [Ventolin Hfa Inhaler] 2 puff INH Q4H PRN #1 inh 06/02/19 Acetamin W/Cod #3 Tab [Tylenol w/CODEINE #3] 1 ea PO Q6H PRN #12 tab 07/30/19 Azithromycin Tab [Zithromax Tab] 250 mg PO DAILY #6 tab 07/30/19 Ondansetron Odt [Zofran ODT] 4 mg PO Q4H PRN #12 tab 07/30/19 Ruakabcfgrbbw-Vnge-Evdthtqidb [Fioricet] 1 ea PO Q8H PRN #10 tab 08/11/19 levoFLOXacin [Levaquin] 500 mg PO DAILY #10 tab 08/11/19 Review of Systems - Review of Systems Constitutional: States: no symptoms reported, see HPI. Denies: chills, fever, malaise, weakness EENTM: States: see HPI, mouth pain, mouth swelling. Denies: throat pain, throat swelling Respiratory: States: no symptoms reported. Denies: cough, short of breath, stridor Cardiology: States: no symptoms reported. Denies: chest pain, palpitations, syncope Gastrointestinal/Abdominal: States: no symptoms reported. Denies: abdominal pain, diarrhea, nausea Genitourinary: Denies: discharge, frequency Musculoskeletal: States: no symptoms reported. Denies: back pain, neck pain Skin: States: no symptoms reported. Denies: change in color, rash Neurological: States: no symptoms reported. Denies: headache, numbness, paresthesia, tingling, tremors Endocrine: States: no symptoms reported. Denies: excessive sweating Hematologic/Lymphatic: States: no symptoms reported All other Systems: Reviewed and Negative Past Medical History (General) - Patient Medical History Hx Seizures: No Hx Stroke: No Hx Dementia: No Hx Asthma: Yes Hx of COPD: No Hx Cardiac Disorders: No Hx Congestive Heart Failure: No Hx Pacemaker: No Hx Hypertension: No Hx Thyroid Disease: No Hx Diabetes: No Hx Gastroesophageal Reflux: No Hx Renal Disease: No Hx Cancer: No Hx of HIV: No Hx Hepatitis C: No Hx MRSA: No Surgical History: appendectomy - Vaccination History Hx Tetanus, Diphtheria Vaccination: Yes Hx Influenza Vaccination: Yes Hx Pneumococcal Vaccination: No Immunizations Up to Date: Yes - Social History Hx Tobacco Use: Yes Hx Chewing Tobacco Use: No Hx Alcohol Use: No Hx Substance Use: No Hx Substance Use Treatment: No Hx Depression: Yes - Bipolar Feels Threatened In Home Enviroment: No Feels Threatened In a Relationship: No Hx Physical Abuse: No Hx Emotional Abuse: No Hx Suspected Abuse: No - Activities of Daily Living Hospice Agency (if applicable):: None - Female History Patient is a Female of Child Bearing Age (10 -59 yrs old): Yes Hx Last Menstrual Period: 07/12/19 Patient : No Expected Date of Delivery:: 06/16/18 Family Medical History - Family History Father Living Status: Still Living Hx Family Hypertension: Yes - multiple family members Hx Family Diabetes: Yes - multiple family members Hx Family Cancer: Yes - colon cancer Mother Family History: No Known Living Status: Still Living Hx Family Hypertension: Yes Physical Exam - Physical Exam General Appearance: Alert, Anxious, Obvious distress, Unkempt, Well Developed, Well Hydrated, Well Nourished Eye Exam: bilateral normal Ear Exam: bilateral ear: auricle normal, canal normal Nasal Exam: normal inspection Throat Exam: dental tenderness, other - Extensive dental caries with gingivitis. 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 08/30/19 22:07 Patient has improved after IM Toradol. I explained to her she needs to alternate Tylenol Motrin every 4 hours. She voices understanding. Plan on discharge home with her following up with her dentist for tooth removal. Patient voices understanding and agreement with the plan of care. Christian Hassan M.D. #[id number] Departure - Departure Clinical Impression: Dental caries, Gingivitis Time of Disposition: 22:09 Disposition: Discharge to Home or Self Care Condition: Fair Departure Forms: ED Discharge - Pt. Copy, Patient Portal Self Enrollment Instructions: DI for Dental Pain Diet: full liquid diet Activity: increase activity as tolerated Referrals: Emigdio Gongora MD [Primary Care Provider] - 1-5 Days Home Medications: Ambulatory Orders Sertraline HCl 50 mg PO DAILY 04/22/18 Albuterol Inhaler [Ventolin Hfa Inhaler] 2 puff INH Q4H PRN #1 inh 06/02/19 Acetamin W/Cod #3 Tab [Tylenol w/CODEINE #3] 1 ea PO Q6H PRN #12 tab 07/30/19 Azithromycin Tab [Zithromax Tab] 250 mg PO DAILY #6 tab 07/30/19 Ondansetron Odt [Zofran ODT] 4 mg PO Q4H PRN #12 tab 07/30/19 Pewkprbjlpfmz-Dybl-Lznybbipkc [Fioricet] 1 ea PO Q8H PRN #10 tab 08/11/19 levoFLOXacin [Levaquin] 500 mg PO DAILY #10 tab 08/11/19
[2019-08-30 22:22] VITALS: BP 116/75; TEMP 97.2
== END 2019-08-30 22:20 | disposition home or self-care (01) ==
LOC: ER 20:45
DX: K02.9 Dental caries, unspecified (principal); K05.10 Chronic gingivitis, plaque induced; E66.01 Morbid (severe) obesity due to excess calories; F17.210 Nicotine dependence, cigarettes, uncomplicated

== ENCOUNTER 2019-09-04 09:10 | Emergency (ER) | payer SELFPAY ==
[2019-09-04] MEDS ORDERED: CLINDAMYCIN HCL CAP 150 MG CAP PO ONE (09:26)
[2019-09-04] MEDS ORDERED: BUPIVACAINE 0.5% W/EPI 30 ML VIAL INJ ONE (09:26)
[2019-09-04 09:30] VITALS: TEMP 98.2
--- NOTE | 2019-09-04 09:33 | ED.PDOC ---
History of Present Illness - General Chief Complaint: Dental/Mouth Stated Complaint: Tooth dental pain Time Seen by Provider: 09/04/19 09:16 Source: patient, RN notes reviewed Exam Limitations: no limitations - History of Present Illness Initial Comments: This is a 24-year-old female presenting to the emergency department for dental pain. She recently finished a course of clindamycin 3 days ago, states the pain is returned today. She reports some mild swelling to the left upper central incisor. She denies any fever. She does report some cough, congestion and some wheezing this morning. She does not feel like she is wheezing now. She states she has seen a dentist for her chronic dental caries and is scheduled for whole mouth extraction, but this was postponed due to COVID-19 epidemic. Allergies/Adverse Reactions: Allergies Amoxicillin Allergy (Intermediate, Verified 09/04/19 09:31) Hives Ethanol [From Robitussin] Allergy (Verified 09/04/19 09:31) vomits Guaifenesin [From Robitussin] Allergy (Verified 09/04/19 09:31) Penicillins Allergy (Verified 09/04/19 09:31) Hives Tramadol Allergy (Verified 09/04/19 09:31) Home Medications: Ambulatory Orders Sertraline HCl 50 mg PO DAILY 04/22/18 Albuterol Inhaler [Ventolin Hfa Inhaler] 2 puff INH Q4H PRN #1 inh 06/02/19 Acetamin W/Cod #3 Tab [Tylenol w/CODEINE #3] 1 ea PO Q6H PRN #12 tab 07/30/19 Azithromycin Tab [Zithromax Tab] 250 mg PO DAILY #6 tab 07/30/19 Ondansetron Odt [Zofran ODT] 4 mg PO Q4H PRN #12 tab 07/30/19 Fftexnpnkvwkg-Fite-Jjohzwvpxv [Fioricet] 1 ea PO Q8H PRN #10 tab 08/11/19 levoFLOXacin [Levaquin] 500 mg PO DAILY #10 tab 08/11/19 Clindamycin HCl 300 mg PO Q8H 10 Days cap 09/04/19 Review of Systems - Review of Systems Constitutional: Denies: chills, fever EENTM: States: nose congestion, mouth pain, mouth swelling. Denies: eye pain, ear pain, throat pain Respiratory: States: cough, wheezing. Denies: short of breath Gastrointestinal/Abdominal: Denies: diarrhea, nausea, vomiting Past Medical History (General) - Patient Medical History Hx Seizures: No Hx Stroke: No Hx Dementia: No Hx Asthma: Yes Hx of COPD: No Hx Cardiac Disorders: No Hx Congestive Heart Failure: No Hx Pacemaker: No Hx Hypertension: No Hx Thyroid Disease: No Hx Diabetes: No Hx Gastroesophageal Reflux: No Hx Renal Disease: No Hx Cancer: No Hx of HIV: No Hx Hepatitis C: No Hx MRSA: No Surgical History: appendectomy - Vaccination History Hx Tetanus, Diphtheria Vaccination: No Hx Influenza Vaccination: Yes Hx Pneumococcal Vaccination: Yes Immunizations Up to Date: Yes - Social History Hx Tobacco Use: Yes Hx Chewing Tobacco Use: No Hx Alcohol Use: No Hx Substance Use: No Hx Substance Use Treatment: No Hx Depression: No Feels Threatened In Home Enviroment: No Feels Threatened In a Relationship: No Hx Physical Abuse: No Hx Emotional Abuse: No Hx Suspected Abuse: No - Female History Patient is a Female of Child Bearing Age (10 -59 yrs old): Yes Hx Last Menstrual Period: 07/12/19 Patient : No Expected Date of Delivery:: 06/16/18 - Triage Comment ED Triage Comment: The patient was complaining of tooth pain from a chronic condition and a sore throat that started this morning with noted sinus drainige. Family Medical History - Family History Father Living Status: Still Living Hx Family Hypertension: Yes - multiple family members Hx Family Diabetes: Yes - multiple family members Hx Family Cancer: Yes - colon cancer Mother Family History: No Known Living Status: Still Living Hx Family Hypertension: Yes Physical Exam - Physical Exam General Appearance: Alert, Comfortable Ears, Nose, Throat: hearing grossly normal, normal pharynx, other - Widespread dental decay with nearly every tooth affected. All upper incisors and molars are carious and eroded to the gumline. There is no obvious dental abscess. No facial swelling. Voice is normal. No sublingual fullness, no submental induration. Airway is widely patent. Neck: full range of motion, supple Respiratory: lungs clear, normal breath sounds, no respiratory distress, no accessory muscle use Cardiovascular/Chest: normal peripheral pulses, regular rate, rhythm, no edema, no gallop, no JVD Gastrointestinal/Abdominal: non tender, soft Progress - Progress Progress: 09/04/19 09:21 Old records reviewed. This is the patient's sixth ER visit in 2019 for dental pain. [place] [employer] reviewed, multiple Tylenol 3 prescriptions given in the past 6 months for dental pain. 09/04/19 09:34 Discussed frequency of her ER visits for dental pain. Expressed my concern about multiple opiate prescriptions. Explained that I will not be giving any opiate prescriptions to go home with, but will give additional course of clindamycin. Patient agrees to proceed with dental block for pain control this time. Procedures - Additional Procedures Progress: PROCEDURE NOTE: 9:50 AM Anterior superior alveolar block on the left performed by me. Anatomic landmarks were identified. Negative aspiration for blood. 1 cc of Marcaine 0.5% with epinephrine was injected. No complications. Patient was unable to tolerate pain, so additional injections or and supraperiosteal injection was refused by the patient. Departure - Departure Clinical Impression: Acute facial pain, Acute pulpitis, Dental caries into pulp Disposition: Discharge to Home or Self Care Condition: Good Departure Forms: ED Discharge - Pt. Copy, Patient Portal Self Enrollment Instructions: DI for Dental Pain Diet: resume usual diet Referrals: Emigdio Gongora MD [Primary Care Provider] - 1-2 Weeks Prescriptions: Clindamycin HCl 300 mg PO Q8H 10 Days cap Home Medications: Ambulatory Orders Sertraline HCl 50 mg PO DAILY 04/22/18 Albuterol Inhaler [Ventolin Hfa Inhaler] 2 puff INH Q4H PRN #1 inh 06/02/19 Acetamin W/Cod #3 Tab [Tylenol w/CODEINE #3] 1 ea PO Q6H PRN #12 tab 07/30/19 Azithromycin Tab [Zithromax Tab] 250 mg PO DAILY #6 tab 07/30/19 Ondansetron Odt [Zofran ODT] 4 mg PO Q4H PRN #12 tab 07/30/19 Rryourkldxywa-Ltja-Umufhodjbc [Fioricet] 1 ea PO Q8H PRN #10 tab 08/11/19 levoFLOXacin [Levaquin] 500 mg PO DAILY #10 tab 08/11/19 Clindamycin HCl 300 mg PO Q8H 10 Days cap 09/04/19 Additional Instructions: Follow-up with your dentist as soon as possible to reschedule your dental extraction. Call them by phone for any worsening pain. Return to the emergency room for fever, facial swelling, difficulty swallowing, or any other concerns.
[2019-09-04 10:00] VITALS: BP 136/87; O2SAT 97
== END 2019-09-04 09:59 | disposition home or self-care (01) ==
LOC: ER 09:10
DX: K02.9 Dental caries, unspecified (principal); K08.89 Other specified disorders of teeth and supporting structures; K04.4 Acute apical periodontitis of pulpal origin; R51 Headache; F17.200 Nicotine dependence, unspecified, uncomplicated

== ENCOUNTER → 2019-09-19 | Outpatient (CLI) | payer MEDICAID | LOC: YCFC.O 16:37 | PROVIDERS: ATTEND Nurse Practitioner | DX: Z20.828 Contact with and (suspected) exposure to other viral communicable diseases (principal) ==

== ENCOUNTER 2019-10-15 19:30 | Emergency (ER) | payer MEDICAID ==
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
[2019-10-15 19:54] VITALS: O2SAT 98
[2019-10-15 20:13] VITALS: BP 129/78; TEMP 97.9
== END 2019-10-15 20:00 | disposition home or self-care (01) ==
LOC: ER 19:30
DX: L03.311 Cellulitis of abdominal wall (principal); J45.909 Unspecified asthma, uncomplicated; Z87.891 Personal history of nicotine dependence; Z88.1 Allergy status to other antibiotic agents; Z88.8 Allergy status to other drugs, medicaments and biological substances; Z88.0 Allergy status to penicillin; Z88.5 Allergy status to narcotic agent; Z79.899 Other long term (current) drug therapy

== ENCOUNTER 2019-12-15 21:58 | Emergency (ER) | payer SELFPAY | END 2019-12-15 23:34 | disposition left against medical advice (07) | LOC: ER 21:58 | DX: K08.89 Other specified disorders of teeth and supporting structures (principal); Z53.21 Procedure and treatment not carried out due to patient leaving prior to being seen by health care provider ==

== ENCOUNTER → 2020-02-24 | Outpatient (CLI) | payer MEDICAID | LOC: YCFC.O 15:18 | PROVIDERS: ATTEND Nurse Practitioner | DX: Z20.828 Contact with and (suspected) exposure to other viral communicable diseases (principal) ==

== ENCOUNTER → 2020-05-07 | Outpatient (CLI) | payer MEDICAID | LOC: YCFC.O 16:06 | PROVIDERS: ATTEND Nurse Practitioner | DX: Z20.828 Contact with and (suspected) exposure to other viral communicable diseases (principal); R82.79 Other abnormal findings on microbiological examination of urine ==